=== PATIENT | male | born 1955 | race Caucasian/White ===

== ENCOUNTER 2021-04-21 19:20 | Emergency (ER) | payer OTHER ==
[~2021-04-21] VITALS: Ht 200.7 cm; Wt 81.7 kg
[~2021-04-21 19:20] MED LIST: ASPI81EC; FISH1000; GLIP5ER; HYDACE5 PO; HYDR1TAB94 PO; IBUP400 PO; INSR10I SC; INSULANI SC; LISI20; METF500; NAPR250; OXYACE5T PO; PERP2; Prinivil5 MG PO; RISP4; ROSI2; SERT100; SIMV20
[2021-04-21 21:01] LABS: BASOPHILS PERCENT AUTO 1 % (0-2); EOSINOPHILS ABSOLUTE AUTO 0.23 K/mm3 (0.00-0.68); EOSINOPHILS PERCENT AUTO 2 % (0-6); Hematocrit 36.9 % (37.0-53.0); Hemoglobin 12.5 g/dL (13.5-17.5); IMMATURE GRAN ABSOLUTE AUTO 0.05 K/mm3 (0.00-0.10); IMMATURE GRAN PERCENT AUTO 0 % (0-1); LYMPHOCYTES ABSOLUTE AUTO 3.29 K/mm3 (0.84-5.20); LYMPHOCYTES PERCENT AUTO 23 % (21-46); MONOCYTES ABSOLUTE AUTO 0.87 K/mm3 (0.16-1.47); MONOCYTES PERCENT AUTO 6 % (4-13); Mean Corpuscular HGB 30.9 pg (26.0-34.0); Mean Corpuscular HGB Conc 33.9 g/dL (31.5-36.5); Mean Corpuscular Volume 91 fL (80-100); Mean Platelet Volume 9.8 fL (9.1-12.4); NEUTROPHILS ABSOLUTE AUTO 9.69 K/mm3 (1.96-9.15); NEUTROPHILS PERCENT AUTO 68 % (41-73); Platelet Count 323 K/mm3 (150-400); RDW Coefficient Variation 12.9 % (11.7-14.2); RDW Standard Deviation 42.8 fL (35.1-46.3); Red Blood Cell Count 4.05 M/mm3 (4.30-5.90); White Blood Cell Count 14.23 K/mm3 (4.00-11.30)
[2021-04-21 21:28] LABS: Alanine Aminotransfer (ALT/SGP 25 U/L (12-78); Albumin, Blood 3.1 g/dL (3.4-5.0); Albumin/Globulin Ratio 0.7 (0.8-1.8); Alk Phos 85 U/L (50-136); Anion Gap 4 mmol/L (6-16); Aspartate Aminotrans (AST/SGOT 15 U/L (12-37); Bilirubin, Total 0.3 mg/dL (0.1-1.0); Blood Urea Nitrogen 17 mg/dL (8-24); Bun/Creatinine Ratio 12.2 (12.0-20.0); CO2, Blood 27 mmol/L (21-32); Calcium, Blood 8.6 mg/dL (8.5-10.1); Chloride, Blood 101 mmol/L (98-108); Creatinine, Blood 1.39 mg/dL (0.60-1.20); Globulin, Blood 4.2 g/dL (2.2-4.0); Glomerular Filtration Rate 51 (60-); Glucose, Blood 279 mg/dL (70-99); Magnesium, Blood 1.9 mg/dL (1.6-2.4); Potassium, Blood 4.6 mmol/L (3.5-5.5); Sodium, Blood 132 mmol/L (136-145); Thyroid Stimulating Hormone 0.945 uIU/mL (0.360-4.800); Total Protein, Blood 7.3 g/dL (6.4-8.2)
[2021-04-21 21:50] LABS: International Normalized Ratio 1.03; Prothrombin Time Results 11.1 Sec (9.7-11.5)
[2021-04-21 22:19] LABS: Troponin I < 0.030 ng/mL (0.000-0.040)
[2021-04-22] MEDS ORDERED: CEPH500 PO (00:50)
== END 2021-04-22 02:11 | disposition home or self-care (01) ==
LOC: ER 19:20
PROVIDERS: Student in an Organized Health Care Education/Training Program
DX: I48.91 Unspecified atrial fibrillation (principal); I10 Essential (primary) hypertension; I25.10 Atherosclerotic heart disease of native coronary artery without angina pectoris; F17.210 Nicotine dependence, cigarettes, uncomplicated; R94.31 Abnormal electrocardiogram [ECG] [EKG]; E11.65 Type 2 diabetes mellitus with hyperglycemia; N49.2 Inflammatory disorders of scrotum; I96 Gangrene, not elsewhere classified; L03.114 Cellulitis of left upper limb; L03.115 Cellulitis of right lower limb; E78.5 Hyperlipidemia, unspecified; Z79.899 Other long term (current) drug therapy; Z95.5 Presence of coronary angioplasty implant and graft; Z95.1 Presence of aortocoronary bypass graft
CPT/HCPCS: 71045; 72193; 80053; 83735; 83880; 84443; 84484; 85025; 85610; 85730; 93005; 93010; 96365; 96366; 96375; 99285-25; A9270; J3370; J7030; Q9967

== ENCOUNTER 2021-09-09 18:41 | Observation (INO) | payer OTHER ==
[~2021-09-09] VITALS: Ht 182.9 cm; Wt 84.0 kg
[~2021-09-09 18:41] MED LIST changes: +CEPH500 PO
[2021-09-09] MEDS ORDERED: LISI5 PO (18:51)
[2021-09-09] MEDS ORDERED: METF500 PO (18:51)
[2021-09-09 18:57] LABS: BASOPHILS ABSOLUTE AUTO 0.06 K/mm3 (0.00-0.23); BASOPHILS PERCENT AUTO 1 % (0-2); EOSINOPHILS ABSOLUTE AUTO 0.18 K/mm3 (0.00-0.68); EOSINOPHILS PERCENT AUTO 2 % (0-6); Hematocrit 43.4 % (37.0-53.0); Hemoglobin 14.7 g/dL (13.5-17.5); IMMATURE GRAN ABSOLUTE AUTO 0.05 K/mm3 (0.00-0.10); IMMATURE GRAN PERCENT AUTO 1 % (0-1); LYMPHOCYTES ABSOLUTE AUTO 2.53 K/mm3 (0.84-5.20); LYMPHOCYTES PERCENT AUTO 27 % (21-46); MONOCYTES ABSOLUTE AUTO 0.71 K/mm3 (0.16-1.47); MONOCYTES PERCENT AUTO 8 % (4-13); Mean Corpuscular HGB 30.3 pg (26.0-34.0); Mean Corpuscular HGB Conc 33.9 g/dL (31.5-36.5); Mean Corpuscular Volume 90 fL (80-100); Mean Platelet Volume 10.2 fL (9.1-12.4); NEUTROPHILS ABSOLUTE AUTO 5.82 K/mm3 (1.96-9.15); NEUTROPHILS PERCENT AUTO 62 % (41-73); Platelet Count 275 K/mm3 (150-400); RDW Coefficient Variation 13.5 % (11.7-14.2); RDW Standard Deviation 44.3 fL (35.1-46.3); Red Blood Cell Count 4.85 M/mm3 (4.30-5.90); White Blood Cell Count 9.35 K/mm3 (4.00-11.30)
[2021-09-09 19:22] LABS: Alanine Aminotransfer (ALT/SGP 22 U/L (12-78); Albumin, Blood 3.2 g/dL (3.4-5.0); Albumin/Globulin Ratio 0.8 (0.8-1.8); Alk Phos 87 U/L (50-136); Anion Gap 7 mmol/L (6-16); Aspartate Aminotrans (AST/SGOT 11 U/L (12-37); Bilirubin, Total 0.3 mg/dL (0.1-1.0); Blood Urea Nitrogen 15 mg/dL (8-24); Bun/Creatinine Ratio 17.5 (12.0-20.0); CO2, Blood 26 mmol/L (21-32); Calcium, Blood 8.5 mg/dL (8.5-10.1); Chloride, Blood 98 mmol/L (98-108); Creatinine, Blood 0.86 mg/dL (0.60-1.20); Globulin, Blood 4.1 g/dL (2.2-4.0); Glomerular Filtration Rate >60 (60-); Glucose, Blood 432 mg/dL (70-99); Sodium, Blood 131 mmol/L (136-145); Total Protein, Blood 7.3 g/dL (6.4-8.2)
[2021-09-09 19:39] LABS: Troponin I <0.015 ng/mL (0.000-0.040)
[2021-09-09] MEDS ORDERED: ASPI81CH PO (22:45)
[2021-09-09] MEDS ORDERED: ERGO400 PO (22:46)
[2021-09-09] MEDS ORDERED: METO25ER PO (22:46)
--- NOTE | 2021-09-09 23:40 | NUR ---
PT ADMITTED FROM ER AT APPROX 2330 FOR CHEST PAIN. TRANSPORTED VIA WHEELCHAIR WHICH IS PATIENS BASELINE R/T LEFT AKA. PT A&O X4. DENIES CP UPON ARRIVAL. DENIES SOB. CBG ELEATED; WILL GIVE INSULIN PER EMAR. ORDER FOR TELE; AWAITING TELE BOX.
--- NOTE | 2021-09-10 17:43 | NUR ---
SHIFT SUMMARY NO ACUTE CHANGES NOTED THROUGH THE DAY. PT CONTINUES TO DENY CP/PRESSURE. TROPONIN REMAINS NEG. PT IS SCHEDULED FOR A STRESS TEST, THEY WILL BE IN TOMORROW DUE TO THE ORDER BEING PLACED AFTER THE PT HAD EATEN BREAKFAST. PT TOLERATED PO INTAKE, VOIDING WNL. PT WILL BE NPO @0000. CALL LIGHT IN REACH, BED IN LOW POSITION.
--- NOTE | 2021-09-11 06:40 | NUR ---
PT DENIED CP T/O NIGHT, VSS. HR AFIB 80-90'S AT REST PER TELE MONITOR. HR DOES INCREASE UP TO 150'S W/ACTIVITY; PT REMIANED ASYMPTOMATIC. PT NPO POST MIDNIHGT FOR PLAN FOR STRESS TEST TODAY.
--- NOTE | 2021-09-11 16:37 | NUR ---
SHIFT SUMMARY PT HAD STRESS TEST TODAY. DISCHARGE PENDING RESULTS. PT TOLERATING PO WELL. IND IN ROOM WITH WHEELCHAIR. PT [id number]. PAIN LOCATED ONLY IN R THROAT IN LUMP THAT HE POINTED OUT THIS AM. OTHERWISE PT REPORTS FEELING AT BASELINE, AND IMPROVED TODAY.
--- NOTE | 2021-09-12 06:26 | NUR ---
PT VSS T/O NIGHT. HR AFIB TRENDING 80-90'S AT REST, INCREASES UP TO 150 W/ACTIVITY PER TELE MONITOR. PT DENIED CHEST PAIN/PRESSURE/SOB. PLAN FOR CARDIOLOGY CONSULT.
[2021-09-12] MEDS ORDERED: INSULANPEN SC (10:30)
[2021-09-12] MEDS ORDERED: ATOR40TA PO (10:30)
[2021-09-12] MEDS ORDERED: HUMULIN R100 UNIT/2 SC (10:32)
[2021-09-12] MEDS ORDERED: XARELTO20 MG PO (10:34)
[2021-09-12] MEDS ORDERED: OMEP20ER PO (10:34)
--- NOTE | 2021-09-12 11:33 | NUR ---
DISCHARGE PT LEFT VIA WHEELCHAIR AT 1130. PT IS TAKING TAXI TO HOME AT [facility]. MEDICATIONS FAXED TO PHARMACY, PT REPORTS HE HAS SISTER THAT PICKS UP MEDICATIONS FOR HIM. WENT OVER NEW MEDICATIONS AT LENGTH WITH PATIENT, HE PLANS TO FOLLOW UP WITH HIS PCP AND UPDATE ON NEW MEDICATIONS. PT HAS BEEN INDEPENDENT IN HIS ROOM WITH HIS WHEELCHAIR. DENIES CP TODAY. IV REMOVED PRIOR TO DISCHARGE.
[2021-10-31] MEDS ORDERED: Cleocin HCl150 MG PO (16:12)
== END 2021-09-12 11:29 | disposition home or self-care (01) ==
LOC: ER 18:41 → SURS 18:42 → MEDS 18:42 → SURS 22:25
PROVIDERS: Student in an Organized Health Care Education/Training Program; ADMIT Internal Medicine
DX: R07.9 Chest pain, unspecified (principal); I10 Essential (primary) hypertension; I25.10 Atherosclerotic heart disease of native coronary artery without angina pectoris; E11.9 Type 2 diabetes mellitus without complications; I25.2 Old myocardial infarction; F17.210 Nicotine dependence, cigarettes, uncomplicated; I44.7 Left bundle-branch block, unspecified; I49.3 Ventricular premature depolarization; I48.91 Unspecified atrial fibrillation; I16.0 Hypertensive urgency; E87.1 Hypo-osmolality and hyponatremia; Z79.84 Long term (current) use of oral hypoglycemic drugs; Z95.1 Presence of aortocoronary bypass graft; Z95.818 Presence of other cardiac implants and grafts; Z88.0 Allergy status to penicillin; Z89.612 Acquired absence of left leg above knee
CPT/HCPCS: 36415; 71046; 78452; 80053; 82947; 83036; 83880; 84484; 85025; 93005; 93010; 93017; 93306; 96365; 96375; 99285-25; A9270; A9500; G0378; J1815; J2785

== ENCOUNTER 2021-10-18 15:28 | Inpatient (IN) | payer OTHER ==
[~2021-10-18] VITALS: Ht 152.4 cm; Wt 86.5 kg
[~2021-10-18 15:28] MED LIST changes: +ASPI81CH PO; +ATOR40TA PO; +ERGO400 PO; +HUMULIN R100 UNIT/2 SC; +INSULANPEN SC; +LISI5 PO; +METF500 PO; +METO25ER PO; +OMEP20ER PO; +XARELTO20 MG PO
[2021-10-18] MEDS ORDERED: DULO60 PO (15:42)
[2021-10-18] MEDS ORDERED: MAGNESIUM OXID500 MG PO (15:42)
[2021-10-18 20:01] LABS: Performing Lab COTTAGE GROVE
--- NOTE | 2021-10-18 23:04 | NUR ---
AFIB PT ARRIVED TO ROOM IN AFIB 110'S TO 140'S. PT STATED HE HAD NOT TAKEN ANY OF HIS HOME MEDS TODAY INCLUDING HIS METOPROLOL. SPOKE WITH DR NEWBERRY WHO GAVE ORDER TO GIVE A DOSE HOME HOME METOPROLOL 25 MG AT THIS TIME.
[2021-10-19 04:10] LABS: BASOPHILS ABSOLUTE AUTO 0.03 K/mm3 (0.00-0.23); BASOPHILS PERCENT AUTO 0 % (0-2); EOSINOPHILS ABSOLUTE AUTO 0.17 K/mm3 (0.00-0.68); EOSINOPHILS PERCENT AUTO 2 % (0-6); Hematocrit 36.4 % (37.0-53.0); Hemoglobin 11.9 g/dL (13.5-17.5); IMMATURE GRAN ABSOLUTE AUTO 0.03 K/mm3 (0.00-0.10); IMMATURE GRAN PERCENT AUTO 0 % (0-1); LYMPHOCYTES ABSOLUTE AUTO 1.94 K/mm3 (0.84-5.20); LYMPHOCYTES PERCENT AUTO 24 % (21-46); MONOCYTES ABSOLUTE AUTO 0.73 K/mm3 (0.16-1.47); MONOCYTES PERCENT AUTO 9 % (4-13); Mean Corpuscular HGB Conc 32.7 g/dL (31.5-36.5); Mean Corpuscular Volume 92 fL (80-100); Mean Platelet Volume 10.5 fL (9.1-12.4); NEUTROPHILS ABSOLUTE AUTO 5.28 K/mm3 (1.96-9.15); NEUTROPHILS PERCENT AUTO 65 % (41-73); Platelet Count 272 K/mm3 (150-400); RDW Coefficient Variation 12.8 % (11.7-14.2); RDW Standard Deviation 43.4 fL (35.1-46.3); Red Blood Cell Count 3.97 M/mm3 (4.30-5.90); White Blood Cell Count 8.18 K/mm3 (4.00-11.30)
[2021-10-19 04:33] LABS: Anion Gap 6 mmol/L (6-16); Blood Urea Nitrogen 13 mg/dL (8-24); Bun/Creatinine Ratio 13.9 (12.0-20.0); CO2, Blood 26 mmol/L (21-32); Calcium, Blood 8.5 mg/dL (8.5-10.1); Chloride, Blood 101 mmol/L (98-108); Creatinine, Blood 0.94 mg/dL (0.60-1.20); Glomerular Filtration Rate >60 (60-); Glucose, Blood 169 mg/dL (70-99); Potassium, Blood 3.8 mmol/L (3.5-5.5); Sodium, Blood 133 mmol/L (136-145)
--- NOTE | 2021-10-19 05:24 | NUR ---
YARDMASTER SUMMARY NEW ADMIT FROM THE ED TONIGHT. [facility] G[facility]GREN[facility] R BIG TOE. TOE IS COMPLETELY BLACK WITH SOME REDNESS/SWELLING TO REST OF FOOT. PHOTO IN CHART. PODIATRY CONSULT IN PLACE, NOTIFIED BY ED PHYSICIAN PER ORDER. PT AAOX4 AND PLEASANT. ABLE TO GET INTO THE BATHROOM WITH HELP OF A WHEELCHAIR AND A 1 ASSIST. HAS BEEN NPO SINCE MIDNIGHT IN PREP FOR PROCEDURE LATER TODAY. TACHY WITH AFIB AT TIMES, SEE PREVIOUS NOTE. OTHER VSS, WILL CONTINUE TO MONITOR.
[2021-10-19 10:08] LABS: Influenza A, PCR NEGATIVE (NEGATIVE); Influenza B, PCR NEGATIVE (NEGATIVE); Resp Syncytial Virus, PCR NEGATIVE (NEGATIVE)
[2021-10-19 10:09] LABS: SARS-Cov-2 (COVID-19) PCR, MMC POSITIVE (NEGATIVE)
[2021-10-19 11:11] LABS: Result SEE SEPERATE REPORT
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
--- NOTE | 2021-10-19 15:53 | NUR ---
PT A/O. PT COVID POSITIVE, GETTING PT READY IN ROOM AND PT TO GO FROM ROOM TO OR. History, Chart, Medications and Allergies reviewed before start of procedure. Patient confirms NPO status and agrees with scheduled surgery. Pre-Op teaching done. Pt verbalizes understanding. Lungs clear T/O to Auscultation.
--- NOTE | 2021-10-19 16:48 | NUR ---
10/19/21 1648 Naye Castaneda PATIENT IS ON SCHEDULED ANTIBIOTICS NO PREOP ANTIBIOTICS ORDERED PER .
--- NOTE | 2021-10-19 18:38 | NUR ---
VSS. AFEBRILE. NO C/O PAIN. AUO. TOLERATING CURRENT DIET. S/P R RIGHT FOOT SURGERY- NO S/S OF BLEEDING NOTED, DRESSING REMAINS C/D/I. FREQUENT ROUNDS TO ENSURE PT SAFETY. PT ENCOURAGED TO CHANGE POSITIONS Q 2HRS, PT VERBALIZED UNDERSTANDING. PT IN NO APPARENT DISTRESS AT THIS TIME. WILL CONTINUE TO MONITOR UNTIL TRANSFER OF CARE TO ONCOMING RN.
--- NOTE | 2021-10-20 05:34 | NUR ---
SHIFT SUMMARY NO ACUTE CHANGES THIS SHIFT. VSS. PT AXO. NO TELEMETRY. PT ON RA. CONTINENT. USING URINAL. PT HAS SLEPT FOR MAJORITY OF SHIFT. DRESSING INTACT AND CLEAN TO R GREAT TOE. CAP REFILL <3 SEC TO UNCOVERED TOES. PT STATES NEUROPATHY HAS PREVENTED HIM FROM FEELING MOST OF THE PAIN POST AMPUTATION. DID REQUIRE ONE TIME DOSE OF FENTANYL THIS SHIFT. OTHERWISE, PT COMFORTABLE IN ROOM. BED IN LOW POSITION.
--- NOTE | 2021-10-20 14:19 | NUR ---
Pt. was alert and awake in bed. Pt. welcomed my visit. Pt. was healing from amputation. Pt. is a , and is distressed because of lack of housing after discharge. Provide a calming presence and listen empathetically. Pt. requested assistance in finding housing after recovery. Prayed with Pt. Pt. displayed evidence of encouragement, and verbalized gratitude for the spiritual care visit. After leaving pt. talked with PCU desk about pts. housing concern. Nurse confirmed that a social need request had been made for pt.
--- NOTE | 2021-10-20 17:08 | NUR ---
A&Ox4. VSS- DBP inc, scheduled BP meds administered. Afebrile. No c/o pain. AUO. No BM. Tolerating current diet. BG >300 at noon-covered per sliding scale, rechecked in 2 hrs with BG trending down. Lantus to be started tonight. Surgery rounded - R foot dressing changed, dressing remains C/D/I. Dr. Price consulted for RLE PVD. Frequent rounds to ensure pt safety. Pt encouraged to reposition q 2hrs to prevent pressure ulcers, pt verbal understanding. Pt in no apparent distress at this time. Will continue to monitor until transfer of care to oncoming RN.
--- NOTE | 2021-10-20 22:59 | NUR ---
Assumed care of pt at 1900. A/Ox4. VSS. Reports no CP/Pressure. Has moderate amount of pain in L AC with old IV site, ice applied. Redness noted with tenderness. Maintains over 92% on RA, Expiratory wheezes t/o R side, Dim on left. Faint pulses t/o. R toe covered, no drainage noted. Urinating in urinal ernuka urine. Will update as changes occur.
--- NOTE | 2021-10-21 18:41 | NUR ---
VSS. Afebrile. No c/o pain. AUO. No BM. Tolerating current diet. Occassionally has nausea- Zofran x1. Podiatry rounded- R foot dressing remains C/D/I. Pending IR intervention per Dr. Price. CTA Abd completed- see results. Frequent rounds to ensure pt safety. Pt encouraged to reposition q2hrs to prevent pressure ulcers, pt verbalized understanding. Pt in no apparent distress at this time. Will continue to monitor until transfer of care to oncoming RN.
--- NOTE | 2021-10-21 21:06 | NUR ---
Assumed care of pt at 1900. A/Ox4. Reports L arm pain where IV infiltrated. Redness has extended about 1inch past marked outline from last nights shift. Ice has been applied multiple times. L BKA, and recent R great toe amputation. R toe amputation covered and dressing was changed today. Other toes are warm to touch, but cap refill cannot be assessed. Patient states he is feeling sick today and believes it to be related to the Covid diagnosis. LS clear t/o and maintains above 95% on RA. DBP still elevated into 100's, rest of VS stable. No temperature. Will update as changes occur.
[2021-10-22 03:48] LABS: Hematocrit 34.9 % (37.0-53.0); Hemoglobin 11.8 g/dL (13.5-17.5); Mean Corpuscular HGB 30.1 pg (26.0-34.0); Mean Corpuscular HGB Conc 33.8 g/dL (31.5-36.5); Mean Corpuscular Volume 89 fL (80-100); Platelet Count 236 K/mm3 (150-400); RDW Coefficient Variation 12.7 % (11.7-14.2); RDW Standard Deviation 41.2 fL (35.1-46.3); Red Blood Cell Count 3.92 M/mm3 (4.30-5.90); White Blood Cell Count 9.63 K/mm3 (4.00-11.30)
[2021-10-22 04:09] LABS: Albumin, Blood 2.5 g/dL (3.4-5.0); Anion Gap 8 mmol/L (6-16); Blood Urea Nitrogen 12 mg/dL (8-24); Bun/Creatinine Ratio 15.3 (12.0-20.0); CO2, Blood 25 mmol/L (21-32); Calcium, Blood 8.2 mg/dL (8.5-10.1); Chloride, Blood 95 mmol/L (98-108); Creatinine, Blood 0.78 mg/dL (0.60-1.20); Glomerular Filtration Rate >60 (60-); Glucose, Blood 142 mg/dL (70-99); Phosphorus, Blood 2.5 mg/dL (2.5-4.9); Potassium, Blood 3.6 mmol/L (3.5-5.5); Sodium, Blood 128 mmol/L (136-145)
--- NOTE | 2021-10-22 16:57 | NUR ---
SHIFT SUMMARY PT A&Ox4; CALM AND COOPERATIVE WITH CARE. PT RESTING IN BED DURING SHIFT. PT REPORTS PAIN TO RIGHT FOOT, MEDICATED x1 WITH PERCOCET. PT REPORT OCCASIONAL, MILD SOB, WHICH HE STAES IS HIS BASELINE, SPO2 >90% ON RA. PT RECEIVING IV ANTIBIOTICS. OTHER VSS. NO OTHER ACUTE CHANGES NOTED DURING SHIFT. WILL CONTINUE TO MONITOR UNITL REPORT GIVEN TO ONLEOBARDO RN.
--- NOTE | 2021-10-22 20:39 | NUR ---
CARE ASSUMPTION PT LYING IN BED W 02 SATS >92% ON RM AIR. PT DENYING ANY PAIN OR NAUSEA AT THIS TIME. VSS AND PT NOT ON TELE. PT DENYING ANY FURTHER NEEDS AT THIS TIME.
[2021-10-23 04:12] LABS: Hematocrit 33.4 % (37.0-53.0); Hemoglobin 11.1 g/dL (13.5-17.5); Mean Corpuscular HGB 29.9 pg (26.0-34.0); Mean Corpuscular HGB Conc 33.2 g/dL (31.5-36.5); Mean Corpuscular Volume 90 fL (80-100); Mean Platelet Volume 10.5 fL (9.1-12.4); Platelet Count 266 K/mm3 (150-400); RDW Coefficient Variation 12.8 % (11.7-14.2); RDW Standard Deviation 42.4 fL (35.1-46.3); Red Blood Cell Count 3.71 M/mm3 (4.30-5.90); White Blood Cell Count 9.57 K/mm3 (4.00-11.30)
[2021-10-23 04:34] LABS: Albumin, Blood 2.3 g/dL (3.4-5.0); Anion Gap 8 mmol/L (6-16); Blood Urea Nitrogen 17 mg/dL (8-24); Bun/Creatinine Ratio 19.5 (12.0-20.0); CO2, Blood 25 mmol/L (21-32); Calcium, Blood 8.1 mg/dL (8.5-10.1); Chloride, Blood 95 mmol/L (98-108); Creatinine, Blood 0.87 mg/dL (0.60-1.20); Glomerular Filtration Rate >60 (60-); Glucose, Blood 171 mg/dL (70-99); Phosphorus, Blood 3.1 mg/dL (2.5-4.9); Potassium, Blood 3.8 mmol/L (3.5-5.5); Sodium, Blood 128 mmol/L (136-145)
--- NOTE | 2021-10-23 05:22 | NUR ---
CLINICAL PROJECT LEADER SUMMARY PT IS AXO X4 AND USES HIS CALL LIGHT TO MAKE HIS NEEDS KNOWN. NO MAJOR CHANGES THIS SHIFT THE PT SLEPT COMFORTABLY FOR MOST OF THE SHIFT. O2 SATS > 92% ON RM AIR. PT DENYING ANY PAIN OR NAUSEA THIS SHIFT. VSS, WILL REPORT TO ONCOMING RN.
--- NOTE | 2021-10-23 16:49 | NUR ---
SHIFT SUMMARY PT A&Ox4; CALM AND COOPERATIVE WITH CARE. PT MOVES IND IN BED, REPOSITIONING SELF. PT DENIES PAIN, CHEST PAIN/PRESSURE, SOB, NASUEA AND DIZZINESS. PT RIGHT GREAT TOE AMPUATION, DR HERRERA AT BEDSIDE THIS AFTERNOON FOR DRESSING CHANGE. SPOKE WITH DR DURAN AND [employer] SUPERINTENDENT, PLANS FOR REVASC TOMROROW 10/24; NEW ORDERS FOR NPO AT MIDNIGHT. PT RECEIVING IV ANTIBIOTICS. VSS. NO OTHER ACUTE CHANGES NOTED. WILL CONTINUE TO MONITOR UNITL REPORT GIVEN TO ONCOMING RN.
--- NOTE | 2021-10-23 20:18 | NUR ---
CARE ASSUMPTION PT IS AXO X4 AND ANSWERING QUESTIONS APPROPRIATELY. PT LYING IN BED DENYING AN PAIN OR NAUSEA AT THIS TIME. O2 SATS >92% ON RM AIR. VSS AND AFEBRILE. PT DENYING ANY FURTHER NEEDS AT THIS TIME.
[2021-10-24 04:56] LABS: Anion Gap 7 mmol/L (6-16); Blood Urea Nitrogen 17 mg/dL (8-24); Bun/Creatinine Ratio 20.5 (12.0-20.0); CO2, Blood 25 mmol/L (21-32); Calcium, Blood 8.2 mg/dL (8.5-10.1); Chloride, Blood 96 mmol/L (98-108); Creatinine, Blood 0.83 mg/dL (0.60-1.20); Glomerular Filtration Rate >60 (60-); Glucose, Blood 115 mg/dL (70-99); Potassium, Blood 3.7 mmol/L (3.5-5.5); Sodium, Blood 128 mmol/L (136-145); Thyroxine (T4) 6.8 ug/dL (4.5-12.1)
--- NOTE | 2021-10-24 05:54 | NUR ---
EXTENSION WORK INSTRUCTOR SUMMARY NO MAJOR CHANGES THIS SHIFT THE PT SLEPT COMFORTABLY FOR MOST OF THE SHIFT. PT HAD C/O PAIN IN RLE SO MEDICATED PER EMAR W RELEIF. LS CLEAR AND O2 SATS >92% ON RM AIR. VSS AND AFEBRILE. PT NPO SINCE MIDNIGHT FOR PROCEDURE. WILL REPORT TO ONCOMING RN.
--- NOTE | 2021-10-24 08:37 | NUR ---
ASSUMED CARE OF PATIENT AT APPROX 0700. PT NPO SINCE MIDNIGHT FOR REVASC TODAY. PT RESTING IN BED APPEARS TO BE SLEEPING. PT WAKES EASILY. PT ALERT, ORIENTEDx4; CALM AND COOPERATIVE WITH CARE. PT REPOSITIONING SELF IN BED. LS DIM T/O WITH EXP WHEEZES IN UPPER LOBES, SPO2 >90% ON RA; PT DENIES COUGH AND SOB. HEART SOUND IRRREGULAR; HR 90-110'S ON SPO2; BP STABLE. BT HYPOACTIVE x4 QUAD, PT REPORTS PASSING GAS; SOFT, NONTENDER. PT DENIES PAIN, CHEST PAIN, NAUSEA AND DIZZINESS. PT RECEIVING IV ANTIBIOTICS. RIGHT GREAT TOE AMPUTATED THIS HOSPITAL STAY; DRESSING CHANGES YESTERDAY BY DR HERRERA. NO S/SX OF ACUTE DISTRESS NOTED. VSS. N OTHER ACUTE CHANGES. WILL CONTINUE TO MONITOR.
--- NOTE | 2021-10-24 17:11 | NUR ---
PT TO SIGN HANGER
--- NOTE | 2021-10-24 17:12 | NUR ---
SHIFT SUMMARY PT REMAINS NPO FOR PROCEDURE T/O SHIFT. PT TRANSFERED TO REAL ESTATE REP. NO S/Sx OF DISTRESS NOTED T/O SHIFT. VSS. NO OTHER ACUTE CHANGES NOTED. WILL CONTINUE TO MONITOR UNTIL REPORT GIVEN TO ONCOMING RN.
--- NOTE | 2021-10-24 21:46 | NUR ---
CARE ASSUMPTION PT ARRIVED BACK FROM SX AT START OF THE SHIFT. PT IS AWAKE AND AXO X4. PT DENYING ANY SIGNIFICANT PAIN AT THIS TIME. O2 SATS >92% ON RM AIR. VSS. R GROIN SITE IS SOFT NON-TENDER W NO S/S OF BLEEDING OR HEMATOMA. R PEDAL PULSES ARE PRESENT AND STRONG W THE DOPPLER. WCTM.
--- NOTE | 2021-10-25 05:33 | NUR ---
SCRAP HOOKER SUMMARY PT IS AXO X4 AND USES HIS CALL LIGHT TO MAKE HIS NEEDS KNOWN. PT'S LEFT GROIN SITE IS SOFT NON-TENDER W NO SIGNS OF BLEEDING OR HEMATOMA THIS SHIFT. PULSES IN R FOOT CANNOT BE FELT BUT ARE VERY PROMINENT W THE DOPPLER. VSS AND TELE SHOWING AFIB 80-130 THIS SHIFT. O2 SATS >92% ON RM AIR THIS SHIFT. WILL REPORT TO ONCOMING RN.
--- NOTE | 2021-10-25 12:17 | NUR ---
Pt. was in bed and alert. Pt. welcomed my visit. Pt. displayed moderate anxiety over the uncertainty of his housing upon discharge. Pt. self described himself as depressed. Listened empathetically. Pt. is a . Facilitated a life review about his service. Pt. 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 When anxiety of his housing resurfaced, I provided a calming pastoral presence. Prayed with pt. Pt. verbalized gratitude. Afterward confirmed with chart notes which indicate a social need request has been submitted on behalf of the pt.
--- NOTE | 2021-10-25 18:33 | NUR ---
SHIFT NOTE PT A/O X4, ANSWERS QUESTIONS APPOPRIATELY IN FULL SENTENCES. VSS. PT INDEPENDANT IN ROOM WITH HIS HOME WHEELCHIAR. PT DID HAVE A LOOSE BM THIS EVENING THAT HE REQUIRED ASSISTANCE WITH TO CLEAN UP. DENIES SOB AND CP. PT ON RA WITH SPO2 >93%. PT DENIES NEEDS T/O THE DAY. PT DOES EXPRESS CONCERN ABOUT PLACEMENT UPON D/C AND EXPRESSED THAT HE WILL NOT LIKELY BE COMPLIANT WITH MEDCIATIONS UPON D/C.
--- NOTE | 2021-10-25 20:07 | NUR ---
CARE ASSUMPTION PT IS AXO X4 AND ANSWERING QUESTIONS APPROPRIATLEY. O2 SATS >94% ON RM AIR. BP WNL. PT REPORTING PAIN IN R FOOT, MEDICATED PER EMAR. PT SITTING IN BED DENYING ANY FURTHER NEEDS AT THIS TIME.
--- NOTE | 2021-10-26 05:59 | NUR ---
APPLICATION CHEMIST SUMMARY PT IS AXO X4 AND USES HIS CALL LIGHT TO MAKE HIS NEEDS KNOWN. PT REPORTING MODERATE PAIN IN HIS R FOOT AND MEDICATED PER EMAR W RELIEF. NO MAJOR CHANGES THE PT SLEPT COMFORTABLY FOR MOST OF THE SHIFT. VSS AND AFEBRILE. WILL REPORT TO ONCOMING RN.
--- NOTE | 2021-10-27 05:56 | NUR ---
STRONG NITRIC OPERATOR SUMMARY PATIENT IS ALEERT AND ORIENTED. VERY COOPERATIVE WITH CARE, STATED HE DOES NOT WANT STOOL SOFTENER. HE HIS V/S WERE MOSTLY STABLE. HE GOT HIS PAIN MED NEEDED. OTHERWISE HE DID NOT LODGE ANY COMPLAINTS OVERNIGHT. WILL CONTINUE TO MONITOR HIM.
--- NOTE | 2021-10-27 16:02 | NUR ---
SHIFT SUMMARY PATIENT IS ALERT AND ORIENTED X3-4. PATIENT IS PLEASENT AND COOPERATIVE WITH CARE. PATIENT HAS DECLINED STOOL SOFTNER. PATIENT HAS HAD NO COMPLAINTS OF PAIN, NAUSEA, SOB OR VOMITTING THIS SHIFT. PATIENT HAS HAD NO ACUTE EVENTS THIS SHIFT. VITAL SIGNS REVIEWED. BED IN LOCKED AND LOWEST POSITION. CALL LIGHT IN REACH. WILL MONITOR UNTIL SHIFT CHANGE.
--- NOTE | 2021-10-28 04:10 | NUR ---
TEST CONSULTANT SUMMARY PATIENT HAD A FAIR SHIFT. ASSESSMENT DONE AND DOCUMENTED. V/S STABLE. NO COMPLAINTS OVERNIGHT. WILL CONTINUE TO MONITOR HIM.
--- NOTE | 2021-10-28 08:19 | NUR ---
CARE ASSUMPTION PATIENT IS ALERT AND ORIENTATED X4. PERRLA. NEURO IS INTACT. VSS. PATIENT REPORTS NO CHEST PAIN/PRESSURE, SHORTNESS OF BREATH, OR PAIN THIS MORNING. HEART SOUNDS REGULAR AND DISTANT, RADIAL PULSES STRONG BILATERALLY. LUNG SOUNDS CLEAR, LEFT LOWER LOBE COARSE. SEE SHIFT ASSESSMENT FOR FULL DETAILS. CALL LIGHT IS WITHIN REACH AND BED IN LOWEST POSITION. WILL CONTINUE TO MONITOR AND PROVIDE CARE.
--- NOTE | 2021-10-28 17:59 | NUR ---
SHIFT SUMMARY PATIENT NEURO REMAINS UNCHAGED THIS SHIFT OR FRO PREVIOUS NOTE. VSS. PATIENT REPORTED PAIN IN HIS LEFT STUMP AND RECEIVED PAIN MEDICATION PER EMAR. PATEINT CALLS APPROPRIATELY. PATIENT HAS URINAL AT BEDSIDE THAT HE USES. NO ACUTE CHANGES THIS SHIFT. CALL LIGHT WITHIN REACH AND BED IN LOWEST POSITION. WILL CONTINUE TO MNITOR AND PROVIDE CARE UNTIL HAND OFF WITH NEXT SHIFT.
--- NOTE | 2021-10-29 04:33 | NUR ---
SHIFT SUMMARY NO ACUTE CHANGES TO REPORT THIS SHIFT, PT HAS SLEPT T/O THE SHIFT. NO COMPLAINTS OF PAIN THIS SHIFT. PT RESP E/U ON RA, SATS WNL. VITALS STABLE. PT INDEPENDENT IN THE ROOM, MAKES NEEDS KNOWN. BED IN LOWEST POSITION, CALL LIGHT WITHIN REACH.
--- NOTE | 2021-10-29 18:11 | NUR ---
PATIENT IS AWAKE,ALERT AND ORIENTED TIME THREE.DENIES PAIN. PATIENT DENIES COMPLAINT AND ISSUE. PATIENT PENDING PLACEMENT PER MD ORDER.
--- NOTE | 2021-10-30 03:53 | NUR ---
SHIFT SUMMARY PATIENT ALERT AND ORIENTED ABLE TO VOICE NEEDS C/O PAIN TO HIS RIGHT SURGICAL GREAT TOE DRESSING INTACT AND DRY NON SWOLLEN PAIN MED ADM PER EMAR WITH RELIEF.CONT BLOOD SUGAR CHECKS NO HYPER/HYPOGLYEMIC NOTED. CONT XERELTO THERAPY NO ACTIVE BLEEDING NOTED.
--- NOTE | 2021-10-30 17:16 | NUR ---
PATIENT IS AWAKE,ALERT AND ORIENTED TIMES THREE. DENIES PAIN. PATIENT ATE 100% OF MEAL. DRESSING INTACT TO LOWER EXTREMITIES NO DRAINAGE NOTED.
--- NOTE | 2021-10-31 04:53 | NUR ---
INVOICING SPECIALIST SUMMARY ADMITTED FOR GANGRENE OF RIGHT GREAT TOE. PT IS S/P AMPUTATION. FULL CODE. PT WAITING ON PLACEMENT HE IS HOMELESS. MEDICATED X1 WITH PERCOCET FOR 10/10 PAIN TO THE RIGHT FOOT. PT INDEPENDENT WITH HOME WC IN ROOM. COVID POSITIVE - ON RA WITH NO COMPLAINTS OF SOB. NO OTHER CONCERNS THIS SHIFT.
--- NOTE | 2021-10-31 07:45 | NUR ---
JHONY loya handoff of patient care from JHONY Ferraro Patient was in bed asleep and did not appear to be in any distress
[2021-10-31] MEDS ORDERED: CLOP75 PO (16:12)
[2021-10-31] MEDS ORDERED: CLIN300 PO (16:12)
[2021-10-31] MEDS ORDERED: INSULIN LI100 UNIT/6 SC (16:14)
[2021-10-31] MEDS ORDERED: MIRALAX17 GM PO (16:15)
[2021-10-31] MEDS ORDERED: VISBIOME 112.51 EACH PO (16:16)
--- NOTE | 2021-10-31 17:05 | NUR ---
Patient was alert and orient, his affect was restricted and mood was congruent. Patient was continent of bowel and bladder. He used w/c for mobility. He was compliant with taking medications and requested no prn. He had no complaints of pain, he had no requests at this time. Patient will not discharge today as the pharmacy is closed. He will discharge tomorrow
--- NOTE | 2021-11-01 06:05 | NUR ---
SUPERINTENDENT DRILLING SUMMARY ADMITTED FOR GANGRENE OF THE RIGHT GREAT TOE. PT IS S/P AMPUTATION. HE IS FULL CODE. PT WILL BE DISCHARGED THIS MORNING. HE REPORTS 6/10 PAIN TO THE RIGHT GREAT TOE BUT REFUSES THE OFFERED PAIN MEDICATION. PT HAS BEEN USING THE URINAL INDEPENDENTLY AND HAS BEEN RESTING THROUGHOUT THE SHIFT.
--- NOTE | 2021-11-01 09:20 | NUR ---
Patient was alert and orient and appropriate for discharge. RN reviewed discharge instructions and medication list with patient. RN removed IV and gathered his belongings and escorted him downstairs. His sister picked him up and will drop him at his daughter's home.
== END 2021-11-01 09:22 | disposition home or self-care (01) | DRG 853 ==
LOC: ER 15:28 → PCU 20:54 → MEDS 10-26 17:13
PROVIDERS: Internal Medicine; Podiatrist Foot & Ankle Surgery; ADMIT Family Medicine
PROC: 8E0ZXY6 Isolation (ICD-10-PCS; 2021-10-18)
PROC: 0Y6M0Z9 Detachment at Right Foot, Partial 1st Ray, Open Approach (ICD-10-PCS; principal; 2021-10-19 13:00)
PROC: 04LK3DZ Occlusion of Right Femoral Artery with Intraluminal Device, Percutaneous Approach (ICD-10-PCS; 2021-10-24)
PROC: 047M3DZ Dilation of Right Popliteal Artery with Intraluminal Device, Percutaneous Approach (ICD-10-PCS; 2021-10-24)
PROC: 047K3Z1 Dilation of Right Femoral Artery using Drug-Coated Balloon, Percutaneous Approach (ICD-10-PCS; 2021-10-24)
PROC: 047T3ZZ Dilation of Right Peroneal Artery, Percutaneous Approach (ICD-10-PCS; 2021-10-24)
PROC: B41D1ZZ Fluoroscopy of Aorta and Bilateral Lower Extremity Arteries using Low Osmolar Contrast (ICD-10-PCS; 2021-10-24)
DX: A41.9 Sepsis, unspecified organism (principal); U07.1 COVID-19; I77.77 Dissection of artery of lower extremity; E87.1 Hypo-osmolality and hyponatremia; E11.52 Type 2 diabetes mellitus with diabetic peripheral angiopathy with gangrene; I70.261 Atherosclerosis of native arteries of extremities with gangrene, right leg; L03.031 Cellulitis of right toe; I48.91 Unspecified atrial fibrillation; I10 Essential (primary) hypertension; F32.A Depression, unspecified; Z28.21 Immunization not carried out because of patient refusal; I25.10 Atherosclerotic heart disease of native coronary artery without angina pectoris; E66.9 Obesity, unspecified; Z68.34 Body mass index [BMI] 34.0-34.9, adult; F17.210 Nicotine dependence, cigarettes, uncomplicated; Z95.1 Presence of aortocoronary bypass graft; Z89.612 Acquired absence of left leg above knee; Z59.00 Homelessness unspecified; Z91.14 Patient's other noncompliance with medication regimen; I25.2 Old myocardial infarction; Z88.0 Allergy status to penicillin; Z79.82 Long term (current) use of aspirin; Z71.6 Tobacco abuse counseling; Z79.01 Long term (current) use of anticoagulants; Z79.899 Other long term (current) drug therapy; Z79.4 Long term (current) use of insulin; Z95.5 Presence of coronary angioplasty implant and graft
CPT/HCPCS: 0241U; 36140; 36415; 37226; 37228; 37232; 73660; 75625; 75635; 75716; 75774; 76937; 80048; 80069; 82947; 83605; 83735; 84300; 84436; 84443; 85025; 85027; 85347; 87040; 88305; 88311; 93005; 93010; 93926; 96365; 96366; 96367; 96375; 99152; 99153; 99285-25; A9270; C1725; C1760; C1769; C1887; C1894; C2623; J0171; J0690; J0692; J1644; J1815; J2250; J2405; J2704; J3010; J3370; J7030; J7050; Q9967

== ENCOUNTER 2021-11-15 09:29 | Inpatient (IN) | payer OTHER ==
[~2021-11-15] VITALS: Ht 177.8 cm; Wt 81.7 kg
[~2021-11-15 09:29] MED LIST changes: +CLOP75 PO; +Cleocin HCl150 MG PO; +DULO60 PO; +INSULIN LI100 UNIT/6 SC; +MAGNESIUM OXID500 MG PO; +MIRALAX17 GM PO; +VISBIOME 112.51 EACH PO
[2021-11-15 09:48] LABS: BASOPHILS ABSOLUTE AUTO 0.05 K/mm3 (0.00-0.23); BASOPHILS PERCENT AUTO 0 % (0-2); EOSINOPHILS PERCENT AUTO 0 % (0-6); Hematocrit 32.6 % (37.0-53.0); Hemoglobin 11.2 g/dL (13.5-17.5); IMMATURE GRAN ABSOLUTE AUTO 0.23 K/mm3 (0.00-0.10); IMMATURE GRAN PERCENT AUTO 1 % (0-1); LYMPHOCYTES ABSOLUTE AUTO 0.98 K/mm3 (0.84-5.20); LYMPHOCYTES PERCENT AUTO 4 % (21-46); MONOCYTES ABSOLUTE AUTO 1.39 K/mm3 (0.16-1.47); MONOCYTES PERCENT AUTO 6 % (4-13); Mean Corpuscular HGB 29.4 pg (26.0-34.0); Mean Corpuscular HGB Conc 34.4 g/dL (31.5-36.5); Mean Corpuscular Volume 86 fL (80-100); Mean Platelet Volume 10.4 fL (9.1-12.4); NEUTROPHILS ABSOLUTE AUTO 22.74 K/mm3 (1.96-9.15); NEUTROPHILS PERCENT AUTO 90 % (41-73); Platelet Count 454 K/mm3 (150-400); RDW Coefficient Variation 13.9 % (11.7-14.2); RDW Standard Deviation 43.5 fL (35.1-46.3); Red Blood Cell Count 3.81 M/mm3 (4.30-5.90); White Blood Cell Count 25.39 K/mm3 (4.00-11.30)
[2021-11-15 10:14] LABS: Alanine Aminotransfer (ALT/SGP 100 U/L (12-78); Albumin, Blood 2.5 g/dL (3.4-5.0); Albumin/Globulin Ratio 0.5 (0.8-1.8); Alk Phos 183 U/L (50-136); Anion Gap 10 mmol/L (6-16); Aspartate Aminotrans (AST/SGOT 127 U/L (12-37); Bilirubin, Total 1.4 mg/dL (0.1-1.0); Blood Urea Nitrogen 40 mg/dL (8-24); Bun/Creatinine Ratio 49.9 (12.0-20.0); CO2, Blood 22 mmol/L (21-32); Calcium, Blood 9.3 mg/dL (8.5-10.1); Chloride, Blood 86 mmol/L (98-108); Globulin, Blood 5.4 g/dL (2.2-4.0); Glomerular Filtration Rate >60 (60-); Glucose, Blood 472 mg/dL (70-99); Potassium, Blood 5.7 mmol/L (3.5-5.5); Sodium, Blood 118 mmol/L (136-145); Total Protein, Blood 7.9 g/dL (6.4-8.2)
[2021-11-15 10:26] LABS: Base Excess Venous -2.3 mmol/L; Bicarbonate Venous 22.9 mmol/L (24.0-30.0); PCO2 Venous 34.4 mmHg (38-42); PO2 Venous 75.9 mmHg (38-42); pH Blood Venous 7.42 (7.34-7.37)
[2021-11-15 13:00] LABS: Influenza A, PCR NEGATIVE (NEGATIVE); Influenza B, PCR NEGATIVE (NEGATIVE); Resp Syncytial Virus, PCR NEGATIVE (NEGATIVE)
[2021-11-15 13:03] LABS: SARS-Cov-2 (COVID-19) PCR, MMC POSITIVE (NEGATIVE)
[2021-11-15 15:15] LABS: Anion Gap 9 mmol/L (6-16); Blood Urea Nitrogen 39 mg/dL (8-24); Bun/Creatinine Ratio 41.8 (12.0-20.0); CO2, Blood 21 mmol/L (21-32); Calcium, Blood 8.2 mg/dL (8.5-10.1); Chloride, Blood 95 mmol/L (98-108); Creatinine, Blood 0.93 mg/dL (0.60-1.20); Glomerular Filtration Rate >60 (60-); Glucose, Blood 381 mg/dL (70-99); Potassium, Blood 4.9 mmol/L (3.5-5.5); Sodium, Blood 125 mmol/L (136-145)
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
--- NOTE | 2021-11-15 17:13 | NUR ---
ASSUMED CARE FROM ER. A/A/OX3 WITH INTERMITANT FORGETFULNESS. POOR HISTORIAN, UNABLE TO GIVEN CLEAR HX OR PHONE NUMBERS FOR FAMILY MEMBERS. RIGHT GREAT TOE AMPUTATION 1 MONTH AGO. STATES WAS LIVING WITH DAUGHTER IN [place] AND NEVER WENT BACK TO THE DOCTOR FOR POST OP FOLLOW UP. RIGHT FOOT SWOLLEN, RED, WARM WITH BLACK TISSUE WITH FLAKING AND SCALING. PEDAL PULSE PALPABLE WITH US. REDNESS MARKED ON LOWER LEG, PHOTOS IN CHART. CARDIZEM INFUSING AT 5ML/HR TO MAINTAIN HR IN LOW 100-110'S. BLOOD PRESSURE SOFT, MONITORING CLOSLY FOR CARDIZEM TITRATION. USES URINAL IN BED, REPOSITIONS SELF, FOOT EVALUATED BY DR. HERRERA. NPO AFTER MIDNIGHT FOR DR. DURAN CONSULT. RIGHT FOOT WRAPPED PER DR. HERRERA WITH XEROFORM, 4X4, ABD PAD, AND TROY WRAP VERY LOOSE. INSULIN COVERAGE PER EMAR. PT STATES HAS NOT USED HOME INSULIN BECAUSE IS "DISABLED". PALLATIVE CARE RN IN TO SEE PT IN AFTERNOON. WILL CONINUE TO MONITOR AND TREAT UNTIL CHANGE OF SHIFT.
[2021-11-15 17:57] LABS: Anion Gap 9 mmol/L (6-16); Blood Urea Nitrogen 41 mg/dL (8-24); CO2, Blood 21 mmol/L (21-32); Calcium, Blood 8.3 mg/dL (8.5-10.1); Chloride, Blood 98 mmol/L (98-108); Creatinine, Blood 0.91 mg/dL (0.60-1.20); Glomerular Filtration Rate >60 (60-); Glucose, Blood 148 mg/dL (70-99); Potassium, Blood 4.5 mmol/L (3.5-5.5); Sodium, Blood 128 mmol/L (136-145)
--- NOTE | 2021-11-15 17:59 | NUR ---
Addition to palliative assessment. Pt not using his insulin because unable to see syringe and read bottles due to declining vision.
[2021-11-15 22:03] LABS: Anion Gap 6 mmol/L (6-16); Blood Urea Nitrogen 41 mg/dL (8-24); Bun/Creatinine Ratio 46.5 (12.0-20.0); CO2, Blood 25 mmol/L (21-32); Calcium, Blood 8.2 mg/dL (8.5-10.1); Chloride, Blood 96 mmol/L (98-108); Creatinine, Blood 0.88 mg/dL (0.60-1.20); Glomerular Filtration Rate >60 (60-); Glucose, Blood 148 mg/dL (70-99); Potassium, Blood 4.3 mmol/L (3.5-5.5); Sodium, Blood 127 mmol/L (136-145)
[2021-11-16 01:29] LABS: Anion Gap 7 mmol/L (6-16); Blood Urea Nitrogen 40 mg/dL (8-24); Bun/Creatinine Ratio 46.6 (12.0-20.0); CO2, Blood 24 mmol/L (21-32); Calcium, Blood 7.8 mg/dL (8.5-10.1); Chloride, Blood 97 mmol/L (98-108); Creatinine, Blood 0.86 mg/dL (0.60-1.20); Glomerular Filtration Rate >60 (60-); Glucose, Blood 177 mg/dL (70-99); Potassium, Blood 4.4 mmol/L (3.5-5.5); Sodium, Blood 128 mmol/L (136-145)
--- NOTE | 2021-11-16 05:04 | NUR ---
END OF SHIFT SUMMARY: LIANNE HAS BEEN ON CARDIZEM WHEN RECIEVING PATIENT FROM DAY SHIFT AT A RATE OF 10, CHANGED TO RATE OF 5 DURING 1999 VITALS. NO ORDER WAS IN THE SYSTEM DUE TO ED ORDER BEING DC'D. NEW ORDER OBTAINED BY ONCALL PROVIDER. LIANNE PULSE HAS BEEN AFIB HIGH 80'S TO MID 100'S. DENIES CHEST PAIN, OR SOB. HAS BEEN USING THE URINAL AT THE BEDSIDE. BEEN NPO SINCE MIDNIGHT. PATIENT HAD A TORRES TREATED PAIN PER EMAR. PATIENT BLOOD CULTURES WERE POSITIVE FOR GRAM+ COCCI CLUSTERS. [id number] CORE WINDER MACHINE OPERATOR PROVIDER AWARE NO NEW ORDERS AT THIS TIME HE IS RECIEVING MULTIPLE ANTIBIOTICS ALREADY. MULTIPLE LAB DRAWS THORUGH THE NIGHT. BLOOD PRESSURES HAVE BEEN THERAPUETIC WITH CARDIZEM AT 5. WILL CONTINUE TO MONITOR AT THIS TIME.
[2021-11-16 05:30] LABS: BASOPHILS ABSOLUTE AUTO 0.06 K/mm3 (0.00-0.23); BASOPHILS PERCENT AUTO 0 % (0-2); EOSINOPHILS ABSOLUTE AUTO 0.11 K/mm3 (0.00-0.68); EOSINOPHILS PERCENT AUTO 1 % (0-6); Hematocrit 29.9 % (37.0-53.0); Hemoglobin 9.6 g/dL (13.5-17.5); IMMATURE GRAN ABSOLUTE AUTO 0.21 K/mm3 (0.00-0.10); IMMATURE GRAN PERCENT AUTO 1 % (0-1); LYMPHOCYTES ABSOLUTE AUTO 2.05 K/mm3 (0.84-5.20); LYMPHOCYTES PERCENT AUTO 9 % (21-46); MONOCYTES ABSOLUTE AUTO 1.52 K/mm3 (0.16-1.47); MONOCYTES PERCENT AUTO 7 % (4-13); Mean Corpuscular HGB 28.9 pg (26.0-34.0); Mean Corpuscular HGB Conc 32.1 g/dL (31.5-36.5); Mean Corpuscular Volume 90 fL (80-100); Mean Platelet Volume 10.1 fL (9.1-12.4); NEUTROPHILS PERCENT AUTO 83 % (41-73); Platelet Count 383 K/mm3 (150-400); RDW Coefficient Variation 14.3 % (11.7-14.2); Red Blood Cell Count 3.32 M/mm3 (4.30-5.90); White Blood Cell Count 23.25 K/mm3 (4.00-11.30)
[2021-11-16 06:01] LABS: Albumin, Blood 1.9 g/dL (3.4-5.0); Anion Gap 7 mmol/L (6-16); Blood Urea Nitrogen 36 mg/dL (8-24); Bun/Creatinine Ratio 40.5 (12.0-20.0); CO2, Blood 24 mmol/L (21-32); Calcium, Blood 7.9 mg/dL (8.5-10.1); Chloride, Blood 98 mmol/L (98-108); Creatinine, Blood 0.89 mg/dL (0.60-1.20); Glomerular Filtration Rate >60 (60-); Glucose, Blood 127 mg/dL (70-99); Phosphorus, Blood 2.8 mg/dL (2.5-4.9); Potassium, Blood 4.2 mmol/L (3.5-5.5); Sodium, Blood 129 mmol/L (136-145)
--- NOTE | 2021-11-16 11:36 | NUR ---
Spiritual Care Visit. Pt. is alert and welcomes my visit. Pt. is unsettled about the nature of his diagnosis. Pt. verbalizes that he finds himself in a depressed state. Through theraputic listening and pastoral family life counselor pt. displays evidence of engagement. Faciliate a life review. As Pt. responds, I feel that I may have seen this pt. during a previous hospitalization. Explore issues of jaylen and belief. Prayer with Pt. Pt. displays evidence of reduced anxiety, and verbalizes gratitude for spiritual care.
[2021-11-16 15:49] LABS: International Normalized Ratio 1.36
--- NOTE | 2021-11-16 17:45 | NUR ---
SHIFT SUMMARY; ASSUMED CARE AT 0700, A/A/OX4. RIGHT FOOT REMAINS WRAPPED WITH LOOSE TROY WRAP. CARDIZEM GTT AT 5ML/HR WHEN ASSUMING CARE. TAKEN TO RETOUCHER PHOTOENGRAVING DURING SHIFT FOR REVASC OF RIGHT LEG. CLEAR SITE DRESSING IN PLACE ON LEFT GROIN POST OP. REMAINED FLAT X4 HOURS PER ORDERS, NO BLEEDING, NO BRUISING OR SWELLING. HEPARIN STARTED 2 HOURS POST OP PER ORDERS. CARDIZEM INCREASED TO 10ML/HR AT 1600 FOR HR OF 130'S. NS INFUSING AT 100ML/HR PER ORDERS. RIGHT FOOT EVALUATED BY DR. HERRERA AND REWRAPPED IN AFTERNOON. PULSE ONLY PALBABLE TO ANKLE. ORTHO CONSULT PLACED. PT TO BE NPO AFTER MIDNIGHT. REPOSITIONS SELF IN BED, USES URINAL WITHOUT DIFFICULTY. PLEASANT AND COOPERATIVE WITH CARE. CAP REFILL OF RIGHT FOOT REMAINS GREATER THAN 3SECS, FOOT COOL TO TOUCH, DR. HERRERA AWARE. WILL CONTINUE TO MONITOR AND TREAT UNTIL CHANGE OF SHIFT.
[2021-11-17 06:19] LABS: BASOPHILS ABSOLUTE AUTO 0.05 K/mm3 (0.00-0.23); BASOPHILS PERCENT AUTO 0 % (0-2); EOSINOPHILS ABSOLUTE AUTO 0.08 K/mm3 (0.00-0.68); EOSINOPHILS PERCENT AUTO 0 % (0-6); Hematocrit 32.2 % (37.0-53.0); Hemoglobin 10.4 g/dL (13.5-17.5); IMMATURE GRAN ABSOLUTE AUTO 0.18 K/mm3 (0.00-0.10); IMMATURE GRAN PERCENT AUTO 1 % (0-1); LYMPHOCYTES ABSOLUTE AUTO 1.62 K/mm3 (0.84-5.20); LYMPHOCYTES PERCENT AUTO 8 % (21-46); MONOCYTES ABSOLUTE AUTO 1.22 K/mm3 (0.16-1.47); MONOCYTES PERCENT AUTO 6 % (4-13); Mean Corpuscular HGB 29.5 pg (26.0-34.0); Mean Corpuscular HGB Conc 32.3 g/dL (31.5-36.5); Mean Corpuscular Volume 91 fL (80-100); NEUTROPHILS ABSOLUTE AUTO 16.63 K/mm3 (1.96-9.15); NEUTROPHILS PERCENT AUTO 84 % (41-73); Platelet Count 422 K/mm3 (150-400); RDW Coefficient Variation 14.9 % (11.7-14.2); RDW Standard Deviation 49.2 fL (35.1-46.3); Red Blood Cell Count 3.53 M/mm3 (4.30-5.90); White Blood Cell Count 19.78 K/mm3 (4.00-11.30)
--- NOTE | 2021-11-17 06:19 | NUR ---
SHIFT SUMMARY: NO ACUTE CHANGES OVERNIGHT. LEFT GROIN SITE WNL. NPO SINCE MIDNIGHT. BLOOD GLUCOSE REMAINED HIGH OVERNIGHT IN 200'S. 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
[2021-11-17 06:43] LABS: Alanine Aminotransfer (ALT/SGP 53 U/L (12-78); Albumin, Blood 1.9 g/dL (3.4-5.0); Albumin/Globulin Ratio 0.4 (0.8-1.8); Alk Phos 132 U/L (50-136); Anion Gap 7 mmol/L (6-16); Aspartate Aminotrans (AST/SGOT 26 U/L (12-37); Bilirubin, Total 0.6 mg/dL (0.1-1.0); Blood Urea Nitrogen 28 mg/dL (8-24); Bun/Creatinine Ratio 38.9 (12.0-20.0); CO2, Blood 18 mmol/L (21-32); Calcium, Blood 7.5 mg/dL (8.5-10.1); Chloride, Blood 104 mmol/L (98-108); Creatinine, Blood 0.72 mg/dL (0.60-1.20); Globulin, Blood 4.4 g/dL (2.2-4.0); Glomerular Filtration Rate >60 (60-); Glucose, Blood 178 mg/dL (70-99); Potassium, Blood 4.2 mmol/L (3.5-5.5); Sodium, Blood 129 mmol/L (136-145); Total Protein, Blood 6.3 g/dL (6.4-8.2)
[2021-11-17 10:28] LABS: Vancomycin, Trough 17.8 ug/mL (5.0-10.0)
--- NOTE | 2021-11-17 14:25 | NUR ---
ECHOCARDIOGRAM COMPLETED
--- NOTE | 2021-11-17 16:22 | NUR ---
SHIFT SUMMARY Pt is a/o x 4 and has no c/o pain. His dressing to his right foot remains CDI. His access site to his left groin is soft, non-tender and without any bleeding and the dressing remains intact. He was scheduled for a BKA today but at lunch time he drank some milk and when the day surgery was notified they reported that it would have to be postponed. Dr Grubbs stopped by the room and said the surgery will be done tomorrow morning and gave orders for when to stop the heparin which was relayed to pharmacy and there is an updated order on the EMAR. He also ordered xrays which were completed this afternoon. midmorning the pt was complaining of malaise and upon assessment he was found to be diaphoretic and reported some SOB even though his sats remained in the high 90's, the HOB was elevated and NC was placed with o2 @ 1 lpm. VS remained stable with a CBG of 90, Dr Del Cid was notified and ordered an EKG, which was completed. The sweating and SOB resolved on its own and has not returned thus far this afternoon and he is back on RA. He remains on the IV heparin gtt dosed by the pharmacy and on the cardizem gtt @ 5mg. He is in a-fib @ 103. He denies any chest pain and SOB currently. Pt is aware and agreeable to the plan for tomorrow. He will be NPO at midnight tonight. He has been using the urinal at the bedside and uses his call light appropriately. He is resting in bed watching TV.
--- NOTE | 2021-11-18 06:00 | NUR ---
SHIFT SUMMARY: PT STABLE OVERNIGHT WITH NO ACUTE CHANGES. HR CONTINUES 90-110 ON CARDIZEM GTT @ 10 MG/HR. VSS. PT REPORTS INCREASED PAIN OVERNIGHT THAT DIDN'T SEEM TO WANT TO GO AWAY. PT NPO OVERNIGHT EXCEPT FOR SMALL SIPS OF WATER WITH MEDICATION. PT A&O W/OCCASSIONAL FORGETFULNESS AND PLEASANT.
[2021-11-18 08:01] LABS: BASOPHILS ABSOLUTE AUTO 0.06 K/mm3 (0.00-0.23); BASOPHILS PERCENT AUTO 0 % (0-2); EOSINOPHILS ABSOLUTE AUTO 0.08 K/mm3 (0.00-0.68); EOSINOPHILS PERCENT AUTO 0 % (0-6); Hematocrit 34.2 % (37.0-53.0); Hemoglobin 10.8 g/dL (13.5-17.5); IMMATURE GRAN ABSOLUTE AUTO 0.27 K/mm3 (0.00-0.10); IMMATURE GRAN PERCENT AUTO 1 % (0-1); LYMPHOCYTES ABSOLUTE AUTO 1.34 K/mm3 (0.84-5.20); LYMPHOCYTES PERCENT AUTO 7 % (21-46); MONOCYTES PERCENT AUTO 5 % (4-13); Mean Corpuscular HGB 28.8 pg (26.0-34.0); Mean Corpuscular HGB Conc 31.6 g/dL (31.5-36.5); Mean Corpuscular Volume 91 fL (80-100); Mean Platelet Volume 9.8 fL (9.1-12.4); NEUTROPHILS ABSOLUTE AUTO 16.58 K/mm3 (1.96-9.15); NEUTROPHILS PERCENT AUTO 86 % (41-73); Platelet Count 450 K/mm3 (150-400); Red Blood Cell Count 3.75 M/mm3 (4.30-5.90); White Blood Cell Count 19.33 K/mm3 (4.00-11.30)
[2021-11-18 08:11] LABS: International Normalized Ratio 1.35; Prothrombin Time Results 13.9 Sec (9.7-11.5)
[2021-11-18 08:19] LABS: Alanine Aminotransfer (ALT/SGP 50 U/L (12-78); Albumin/Globulin Ratio 0.4 (0.8-1.8); Alk Phos 126 U/L (50-136); Anion Gap 7 mmol/L (6-16); Aspartate Aminotrans (AST/SGOT 24 U/L (12-37); Bilirubin, Total 0.6 mg/dL (0.1-1.0); Blood Urea Nitrogen 22 mg/dL (8-24); Bun/Creatinine Ratio 33.2 (12.0-20.0); CO2, Blood 22 mmol/L (21-32); Calcium, Blood 7.7 mg/dL (8.5-10.1); Chloride, Blood 102 mmol/L (98-108); Creatinine, Blood 0.66 mg/dL (0.60-1.20); Globulin, Blood 4.5 g/dL (2.2-4.0); Glomerular Filtration Rate >60 (60-); Glucose, Blood 102 mg/dL (70-99); Sodium, Blood 131 mmol/L (136-145); Total Protein, Blood 6.5 g/dL (6.4-8.2)
--- NOTE | 2021-11-18 09:22 | NUR ---
11/18/21 0922 Henry Fournier RIGHT FOOT WRAPPED IN IMPERVIOUS STOCKINETTE AND COBAN BY MD MARIN PRE OPERATIVELY. RIGHT LOWER EXTREMITY THEN PREPPED APPROPRIATELY BY NAMAN RN.
--- NOTE | 2021-11-18 17:18 | NUR ---
SHIFT SUMMARY Pt is a/o x 4 today. He went down first thing this morning for his Right BKA surgery. When he returned to his room he was a/o x 4 just a little sleepy. He has a surgical dressing with a stockingette that is CDI. The cardizem was Dcd by Dr Merino and the heparin was not restarted after the surgery per Dr Haines and Dr Merino input orders for PO xarelto as reflected on the EMAR. Pt did c/o pain to his right leg and was medicated per emar. He has a good appetite and is eating dinner now on the side of the bed. He is still using the urinal. He is very pleasant and able to make his needs known. He has his call light in reach.
[2021-11-18 22:18] LABS: Vancomycin, Trough 17.7 ug/mL (5.0-10.0)
[2021-11-19 03:40] LABS: Hematocrit 34.5 % (37.0-53.0); Hemoglobin 11.2 g/dL (13.5-17.5); Mean Corpuscular HGB 29.2 pg (26.0-34.0); Mean Corpuscular HGB Conc 32.5 g/dL (31.5-36.5); Mean Corpuscular Volume 90 fL (80-100); Mean Platelet Volume 9.8 fL (9.1-12.4); Platelet Count 415 K/mm3 (150-400); RDW Coefficient Variation 15.2 % (11.7-14.2); RDW Standard Deviation 49.3 fL (35.1-46.3); Red Blood Cell Count 3.84 M/mm3 (4.30-5.90); White Blood Cell Count 20.75 K/mm3 (4.00-11.30)
[2021-11-19 04:00] LABS: Albumin, Blood 2.1 g/dL (3.4-5.0); Anion Gap 8 mmol/L (6-16); Blood Urea Nitrogen 29 mg/dL (8-24); Bun/Creatinine Ratio 40.2 (12.0-20.0); CO2, Blood 21 mmol/L (21-32); Calcium, Blood 7.8 mg/dL (8.5-10.1); Chloride, Blood 99 mmol/L (98-108); Creatinine, Blood 0.72 mg/dL (0.60-1.20); Glomerular Filtration Rate >60 (60-); Glucose, Blood 336 mg/dL (70-99); Phosphorus, Blood 2.8 mg/dL (2.5-4.9); Potassium, Blood 5.7 mmol/L (3.5-5.5); Sodium, Blood 128 mmol/L (136-145)
--- NOTE | 2021-11-19 04:05 | NUR ---
SHIFT SUMMARY: NO ACUTE CHANGES OVERNIGHT. VSS. SURGICAL SITE WNL. PT PAIN CONTROLLED WITH COMBINATION OF FENTANYL AND HYDROCODONE- 2 DOSES OF EACH OVERNIGHT.
--- NOTE | 2021-11-19 04:28 | NUR ---
PT FLIPPED BACK INTO AFIB WITH RATES SUSTAINING 120's AND OCCASSIONALLY TO 140. MD CALLED-GIVE 5MG IV LOPRESSOR NOW AND 0730 DOSE ORALLY NOW.
--- NOTE | 2021-11-19 16:47 | NUR ---
SHIFT SUMMARY Pt continues to be a/o x 4. This morning he reported feeling a little cloudy but that quickly cleared up after breakfast and some pain medication. He did report that he did not like the way the fentanyl made him feel so he didnt want any of that today. Palliative care RN stopped by to see the pt and discussed some med changes with Dr Merino, sme of which are reflected on the EMAR. The surgical dressing remains CDI with stockingette in place. A call was placed to Dr Haines for wound care orders but there was no answer and a message was left for a call back. The pt reported today that since he does not have teeth the food has been difficult for him to eat so we changed his texture to soft and then asked the kitchen to put his food in bowls to make it easier for him to eat, this was a good intervention for him because he has been taking bites of his food all afternoon. He does still report a poor appetite but was pleased with the new food option. This morning he was bale to habe a BM on the bed samano and this brought up the point of his transfer status and he was asking if he will be able to use the toilet in the future since now both legs have been amputated. An order for PT/OT flex was obtained and the PT came by and worked with him in bed. She said for now he will need to use the bed samano but she was going to look for some different ways to get him to a commode or to the toilet. For now he continues to use the urinal. He has been napping on and off today and reported that he feels much better when he is able to sleep. He has the TV on and has his call light and personal items in reach on the table.
--- NOTE | 2021-11-19 18:39 | NUR ---
Multiple visits today to review pt needs. He is still having some pain and discomfort. Pt sleeps most of the tiem as that is how he has gotten by at home in coping with the pain. Pt still having some hiccups and belching. pt on finger foods and struggling with food becase of no teeth. Reviw of pt with nurisng and physian. Suggest increasing his long acting pain med, bowel protocol, change diet to soft. Pt may benefit from gabipentin. Will update [place] palliative care team on his needs and review with case liner. Will see what pt/ot reccomend. Will also continue to see for therputic visits since he has only hi DIL as family.
[2021-11-20 04:10] LABS: Hematocrit 36.1 % (37.0-53.0); Hemoglobin 11.1 g/dL (13.5-17.5); Mean Corpuscular HGB 28.6 pg (26.0-34.0); Mean Corpuscular HGB Conc 30.7 g/dL (31.5-36.5); Mean Corpuscular Volume 93 fL (80-100); Mean Platelet Volume 9.8 fL (9.1-12.4); Platelet Count 527 K/mm3 (150-400); RDW Coefficient Variation 15.4 % (11.7-14.2); RDW Standard Deviation 52.4 fL (35.1-46.3); Red Blood Cell Count 3.88 M/mm3 (4.30-5.90); White Blood Cell Count 23.69 K/mm3 (4.00-11.30)
[2021-11-20 04:36] LABS: Albumin, Blood 2.1 g/dL (3.4-5.0); Anion Gap 6 mmol/L (6-16); Blood Urea Nitrogen 35 mg/dL (8-24); CO2, Blood 22 mmol/L (21-32); Calcium, Blood 8.2 mg/dL (8.5-10.1); Chloride, Blood 101 mmol/L (98-108); Creatinine, Blood 0.78 mg/dL (0.60-1.20); Glomerular Filtration Rate >60 (60-); Glucose, Blood 166 mg/dL (70-99); Phosphorus, Blood 2.5 mg/dL (2.5-4.9); Potassium, Blood 5.4 mmol/L (3.5-5.5); Sodium, Blood 129 mmol/L (136-145)
--- NOTE | 2021-11-20 06:21 | NUR ---
PT CONFUSED. ON TELE AFIB, HEART RATE SUSTAINED IN 120s MD NOTIFIED OERDER RECEIVED, MEDICATION GIVEN PER eMAR. PT REPORT PAIN , PAIN MEDICATION ADMINISTERED ORDERED. PT ON RA SATs >90s. PT HAD LOGAN BATH WITH FULL LINEN CHANGED. DENIES CHEST\PRESSURE AT THIS TIME. CALL LIGHT WITHING REACH/ SIDE RAIL UP X3.
--- NOTE | 2021-11-20 17:53 | NUR ---
SHIFT SUMMARY; ASSUMED CARE AT 0700, A/A/OX3 WITH INTERMITANT CONFUSION. RIGHT BKA DRESSING CHANGED YESTERDAY BY DR. SALCIDO, REMAINS C/D/I. REPOSITIONS SELF IN BED, USES URINAL, WORKED WITH PT/OT TODAY. INSULIN COVERAGE DURING SHIFT PER EMAR. REMAINS IN AFIB WITH RATE 100-115, DENIES CP OR SOB. NO ACUTE CHANGES, WILL CONTINUE TO MONITOR AND TREAT UNTIL CHANGE OF SHIFT.
--- NOTE | 2021-11-20 18:24 | NUR ---
pt improved pain control he is sleeping more which is good he has been to painfull to really rest. will continue to monitor symptoms.
--- NOTE | 2021-11-21 06:23 | NUR ---
INTERMITTENT CONFUSION. ON TELE AFIB WITH HEART RATE IN 120's sustained for few minutes back to 110's SYMPTOMATIC, PT REPORT DIZINESS , DENIES CHEST PAIN/PRESSURE. MD NOTIFIED ONE TIME ORDER FOR CARDIZEM IV PUSH. PT REPORT RIGHT LEG 9/10 PAIN, PAIN MEDS GIVEN PER eMAR. PT HAD NO MORNING LAB ORDER, WILL NOTIFY ONCOMING SHIFT. RIGHT LEG BKA DRESSING INTACT, NO DRAINAGE NOTED. PATIENT EDUCATED ON PLAN OF CARE , VERBALIZED UNDERSTAIND. CALL LIGHT WITHIN REACH AND SIDE RAIL UP X3.
[2021-11-21 10:52] LABS: Vancomycin, Trough 24.7 ug/mL (5.0-10.0)
[2021-11-21 12:57] LABS: BASOPHILS ABSOLUTE AUTO 0.09 K/mm3 (0.00-0.23); BASOPHILS PERCENT AUTO 0 % (0-2); EOSINOPHILS ABSOLUTE AUTO 0.11 K/mm3 (0.00-0.68); EOSINOPHILS PERCENT AUTO 1 % (0-6); Hematocrit 38.3 % (37.0-53.0); Hemoglobin 11.8 g/dL (13.5-17.5); IMMATURE GRAN ABSOLUTE AUTO 0.97 K/mm3 (0.00-0.10); IMMATURE GRAN PERCENT AUTO 4 % (0-1); LYMPHOCYTES ABSOLUTE AUTO 3.53 K/mm3 (0.84-5.20); LYMPHOCYTES PERCENT AUTO 16 % (21-46); MONOCYTES ABSOLUTE AUTO 1.65 K/mm3 (0.16-1.47); MONOCYTES PERCENT AUTO 7 % (4-13); Mean Corpuscular HGB 28.4 pg (26.0-34.0); Mean Corpuscular HGB Conc 30.8 g/dL (31.5-36.5); Mean Corpuscular Volume 92 fL (80-100); Mean Platelet Volume 9.6 fL (9.1-12.4); NEUTROPHILS ABSOLUTE AUTO 15.97 K/mm3 (1.96-9.15); NEUTROPHILS PERCENT AUTO 72 % (41-73); NRBC ABSOLUTE 0.09 K/mm3 (0.00-0.02); NRBC Auto 0.4 /100 WBC (0.0-0.2); Platelet Count 555 K/mm3 (150-400); RDW Coefficient Variation 15.7 % (11.7-14.2); RDW Standard Deviation 51.7 fL (35.1-46.3); Red Blood Cell Count 4.15 M/mm3 (4.30-5.90); White Blood Cell Count 22.32 K/mm3 (4.00-11.30)
[2021-11-21 13:17] LABS: Albumin, Blood 2.2 g/dL (3.4-5.0); Anion Gap 8 mmol/L (6-16); Blood Urea Nitrogen 37 mg/dL (8-24); Bun/Creatinine Ratio 42.4 (12.0-20.0); CO2, Blood 21 mmol/L (21-32); Calcium, Blood 8.1 mg/dL (8.5-10.1); Chloride, Blood 100 mmol/L (98-108); Creatinine, Blood 0.87 mg/dL (0.60-1.20); Glomerular Filtration Rate >60 (60-); Glucose, Blood 186 mg/dL (70-99); Phosphorus, Blood 2.5 mg/dL (2.5-4.9); Potassium, Blood 4.8 mmol/L (3.5-5.5); Sodium, Blood 129 mmol/L (136-145)
--- NOTE | 2021-11-21 17:58 | NUR ---
PT SUMMARY: PT REMAINS A&OX3, SOME CONFUSION AND FORGETFULNESS. VITALS HRR 100-140'S PO METOPROLOL XL 37.5MG WAS RESUMED PT WILL STILL TACH UP TO 150'S MOSTLY WITH EXERTION PROVIDER AWARE, BP SYSTOLIC 120'S-130'S, SATS ABOVE 95% ON RA, AFEBRILE. PT NOTED SOME PURPURA RASH ON THE EXTREMITIES BY THE END OF THE SHIFT PT STATED HE GETS RASH FROM TAPES AND COBAN, NOT ITCHY AND DOESNT BOTHER THE PT. PAIN MANAGED BY PAIN MEDS WITH POSITIVE RESULTS LEGS ELEVATED IN PILLOWS RIGHT BKA STUMP DRESSING WAS CHANGED, LATRICIA REMAINED INTACT NO REDNESS OR DRAINAGE NOTED. PT INCONTINENT/CONTINENT OF URINE OFFERED URINAL MULTIPLE TIMES HAD TOTAL OF 550 URINE OUT PUT FOR THE SHIFT, PT BLADDER SCANNED BEFORE THE END OF THE SHIFT HAD >600MLS RETAINED, HAD INCONTINENT VOID IN THE BED AND HAD 250MLS URINE OUT WHEN URINAL WAS OFFERED. PT NOW RESTING IN BED WITH CALL LIGHTS IN REACH. POOR APPETITE FOR THE SHIFT. NO OTHER ISSUES REPORTED, WILL REPORT TO ONCOMING SHIFT
--- NOTE | 2021-11-22 05:06 | NUR ---
SHIFT SUMMARY PT ALERT AND ORIENTED X3. UNABLE TO TELL MONTH AND DISORIENTED TO TIME. FORGETFUL, OFTEN REPEATING SAME QUESTIONS. HR AFIB 100'S-130'S. BP STABLE. AFEBRILE. C/O 9/10 PAIN IN RIGHT LEG. RELIEVED PER EMAR. IN BED SLEEPING WITH CALL ALARM AT SIDE. WILL CONTINUE TO MONITOR UNTIL REPORT GIVEN TO DAYSHIFT RN.
[2021-11-22 05:26] LABS: BASOPHILS ABSOLUTE AUTO 0.08 K/mm3 (0.00-0.23); BASOPHILS PERCENT AUTO 0 % (0-2); EOSINOPHILS PERCENT AUTO 1 % (0-6); Hematocrit 37.5 % (37.0-53.0); IMMATURE GRAN ABSOLUTE AUTO 0.88 K/mm3 (0.00-0.10); IMMATURE GRAN PERCENT AUTO 4 % (0-1); LYMPHOCYTES ABSOLUTE AUTO 2.82 K/mm3 (0.84-5.20); LYMPHOCYTES PERCENT AUTO 14 % (21-46); MONOCYTES ABSOLUTE AUTO 1.27 K/mm3 (0.16-1.47); MONOCYTES PERCENT AUTO 6 % (4-13); Mean Corpuscular Volume 91 fL (80-100); Mean Platelet Volume 9.8 fL (9.1-12.4); NEUTROPHILS ABSOLUTE AUTO 15.02 K/mm3 (1.96-9.15); NEUTROPHILS PERCENT AUTO 74 % (41-73); NRBC ABSOLUTE 0.12 K/mm3 (0.00-0.02); NRBC Auto 0.6 /100 WBC (0.0-0.2); Platelet Count 505 K/mm3 (150-400); RDW Coefficient Variation 15.7 % (11.7-14.2); RDW Standard Deviation 50.9 fL (35.1-46.3); Red Blood Cell Count 4.14 M/mm3 (4.30-5.90); White Blood Cell Count 20.27 K/mm3 (4.00-11.30)
[2021-11-22 05:50] LABS: Anion Gap 8 mmol/L (6-16); Blood Urea Nitrogen 38 mg/dL (8-24); Bun/Creatinine Ratio 42.5 (12.0-20.0); CO2, Blood 23 mmol/L (21-32); Chloride, Blood 100 mmol/L (98-108); Glomerular Filtration Rate >60 (60-); Glucose, Blood 153 mg/dL (70-99); Potassium, Blood 4.4 mmol/L (3.5-5.5); Sodium, Blood 131 mmol/L (136-145)
[2021-11-22 18:07] LABS: Source, Urine Foley catheter
--- NOTE | 2021-11-22 18:14 | NUR ---
PT SUMMARY: PT TRANSITIONED TO MEDICAL STATUS WITH TELE. VITALS HRR AFIB 110-150'S MOST OF THE SHIFT WAS GIVEN METOPROLOL TARTRATE 25 MG HRR CURRENTLY 100-115'S, BP SYSTOLIC 120'S, SATS ABOVE 95% ON RA, AFEBRILE. PT C/O FATIGUE POOR APPETITE WEAKNESS REFUSED TO WORK WITH PT TODAY WAS ABLE TO WORK WITH OT SAT ON THE SIDE OF THE BED BUT GOT EASILY WORN OUT, PT WAS ABLE TO VEBALIZED TO THE PROVIDER. PT STILL ABLE TO HELP WITH REPOSITIONING USES URINAL INDEPENDENTLY IN THE ROOM. HAD SOME TESTS DONE TODAY FOR SKIN PURPURA/RASHES ON EXTREMITIES, UA SENT WELL. AWAITING FOR RESULT. PT HAD PAIN MEDS X1 FOR THE SHIFT. PT HAS BEEN RESTING MOST OF THE SHIFT, OFFERED HEALTH SHAKE/ENSURE DIDNT REALLY LIKE IT. NO OTHER ISSUES REPORTED, PT ABLE TO MAKE NEEDS KNOW, CALL LIGHTS IN REACH WILL REPORT TO ONCOMING SHIFT
[2021-11-22 18:18] LABS: Bilirubin, Urine Neg (Neg); Blood, Urine 4+ (Neg); Glucose Qualitative, Urine Neg (Neg); Ketones, Urine Neg (Neg); Leukocyte Esterase, Urine 1+ (Neg); Nitrite, Urine Neg (Neg); Protein, Urine 3+ (Neg); Urobilinogen, Urine NORM (Normal)
[2021-11-22 18:53] LABS: Appearance, Urine Hazy (Clear); Color, Urine Pale Yellow (P-Yellow)
[2021-11-22 18:54] LABS: Bacteria Mod /hpf; Squamous Epithelial Cells Rare /hpf (Few); Yeast/Fungi Urine Rare /hpf
[2021-11-23 03:22] LABS: Vancomycin, Trough 19.3 ug/mL (5.0-10.0)
--- NOTE | 2021-11-23 05:47 | NUR ---
SHIFT SUMMARY PT ALERT AND ORIENTED X3. UNABLE TO TELL DATE/TIME. FORGETFUL AT TIMES, OFTEN REPEATING QUESTIONS. AFEBRILE. HR AFIB 100'S-130'S. C/O -06/25 RIGHT LEG PAIN. MEDICATED PER EMAR X3. PETECHAIE ON ALL EXTREMETIES. NOT PRESENT ON TRUNK. PT STATES IT DOES NOT ITCH. PT SLEEPING MOST OF NIGHT. IN BED RESTING WITH CALL ALARM AT SIDE. WILL CONTINUE TO MONITOR UNTIL REPORT GIVEN TO DAYSHIFT RN
[2021-11-23 08:11] LABS: COMPLEMENT C3, SERUM 47 mg/dL (82-167); COMPLEMENT C4, SERUM 10 mg/dL (12-38)
--- NOTE | 2021-11-23 08:37 | NUR ---
AM NOTE PT ALERT AND ORIENTED X4. HE APPEARED LETHARGIC THIS AM BUT WOULD WAKE TO VERBAL STIMULI, PAIN 8/10 REPORTED IN RIGHT LEG, SEE EMAR FOR PAIN RELIEF MEASURES. CBG OF 77 NOTED THIS AM, LONG ACTING INSULIN GIVEN DUE TO PATIENT HAVING ADEQUATE PO INTAKE AT BREAKFAST. WILL CONTINUE TO MONITOR.
[2021-11-23 08:57] LABS: BASOPHILS PERCENT AUTO 0 % (0-2); EOSINOPHILS ABSOLUTE AUTO 0.23 K/mm3 (0.00-0.68); EOSINOPHILS PERCENT AUTO 1 % (0-6); Hematocrit 40.2 % (37.0-53.0); Hemoglobin 12.7 g/dL (13.5-17.5); IMMATURE GRAN ABSOLUTE AUTO 0.89 K/mm3 (0.00-0.10); IMMATURE GRAN PERCENT AUTO 4 % (0-1); LYMPHOCYTES ABSOLUTE AUTO 3.62 K/mm3 (0.84-5.20); LYMPHOCYTES PERCENT AUTO 15 % (21-46); MONOCYTES ABSOLUTE AUTO 1.89 K/mm3 (0.16-1.47); MONOCYTES PERCENT AUTO 8 % (4-13); Mean Corpuscular HGB 29.1 pg (26.0-34.0); Mean Corpuscular HGB Conc 31.6 g/dL (31.5-36.5); Mean Corpuscular Volume 92 fL (80-100); Mean Platelet Volume 9.6 fL (9.1-12.4); NEUTROPHILS ABSOLUTE AUTO 18.15 K/mm3 (1.96-9.15); NEUTROPHILS PERCENT AUTO 73 % (41-73); NRBC Auto 0.4 /100 WBC (0.0-0.2); Platelet Count 493 K/mm3 (150-400); RDW Coefficient Variation 16.2 % (11.7-14.2); RDW Standard Deviation 53.1 fL (35.1-46.3); Red Blood Cell Count 4.37 M/mm3 (4.30-5.90); White Blood Cell Count 24.88 K/mm3 (4.00-11.30)
[2021-11-23 09:16] LABS: HIV AB/P24 AG SCREEN Non Reactive (Non Reactive)
[2021-11-23 09:18] LABS: Anion Gap 5 mmol/L (6-16); Blood Urea Nitrogen 37 mg/dL (8-24); Bun/Creatinine Ratio 37.3 (12.0-20.0); CO2, Blood 29 mmol/L (21-32); Calcium, Blood 8.2 mg/dL (8.5-10.1); Chloride, Blood 99 mmol/L (98-108); Creatinine, Blood 0.99 mg/dL (0.60-1.20); Glomerular Filtration Rate >60 (60-); Glucose, Blood 78 mg/dL (70-99); Potassium, Blood 4.5 mmol/L (3.5-5.5); Sodium, Blood 133 mmol/L (136-145)
--- NOTE | 2021-11-23 12:58 | NUR ---
CARE NOTE PATIENT MORE AWAKE AND LESS LETHARGIC LATER THIS AM/EARLY AFTERNOON, PAIN 0F 9/10 REPORTED SEE EMAR FOR PAIN MANAGEMENT
--- NOTE | 2021-11-23 18:21 | NUR ---
SHIFT SUMMARY PATIENT TRANSFER FROM PCU. A&0 3-4, FORGET AT TIMES. WORKED WITH OT THIS AFTERNOON. HR WENT INTO 140'S. MEDICATED HR ONCE THIS SHIFT. PATIENT RECEIVED PAIN MEDICATION RIGHT BEFORE ARRIVING FROM PCU. NO COMPLAINTS OF PAIN FOR THIS RN. BED IN LOW POSITION WITH BED ALARM ON. WILL CONTINUE TO MONITOR.
[2021-11-23 21:10] LABS: ANA DIRECT Negative (Negative); ANTI-DNA (DS) AB QN 2 IU/mL (0-9); RNP ANTIBODIES <0.2 AI (0.0-0.9); SJOGREN'S ANTI-SS-A <0.2 AI (0.0-0.9); SJOGREN'S ANTI-SS-B <0.2 AI (0.0-0.9); SMITH ANTIBODIES <0.2 AI (0.0-0.9)
--- NOTE | 2021-11-24 05:39 | NUR ---
SHIFT SUMMARY PATIENT ALERT AND ORIENTED X3. MEDICATED PER EMAR FOR PAIN. HAD NO COMPLAINTS OF SHORTNESS OF BREATH. NO ACUTE ISSUES NOTED OVERNIGHT. CALL LIGHT WITHIN REACH. REPORT GIVEN TO ONCOMING RN.
[2021-11-24 06:02] LABS: BASOPHILS ABSOLUTE AUTO 0.07 K/mm3 (0.00-0.23); BASOPHILS PERCENT AUTO 0 % (0-2); EOSINOPHILS ABSOLUTE AUTO 0.17 K/mm3 (0.00-0.68); EOSINOPHILS PERCENT AUTO 1 % (0-6); Hematocrit 40.3 % (37.0-53.0); Hemoglobin 12.4 g/dL (13.5-17.5); IMMATURE GRAN PERCENT AUTO 2 % (0-1); LYMPHOCYTES ABSOLUTE AUTO 2.73 K/mm3 (0.84-5.20); LYMPHOCYTES PERCENT AUTO 13 % (21-46); MONOCYTES ABSOLUTE AUTO 1.77 K/mm3 (0.16-1.47); MONOCYTES PERCENT AUTO 9 % (4-13); Mean Corpuscular HGB 28.4 pg (26.0-34.0); Mean Corpuscular HGB Conc 30.8 g/dL (31.5-36.5); Mean Corpuscular Volume 92 fL (80-100); Mean Platelet Volume 9.8 fL (9.1-12.4); NEUTROPHILS ABSOLUTE AUTO 15.61 K/mm3 (1.96-9.15); NEUTROPHILS PERCENT AUTO 75 % (41-73); NRBC ABSOLUTE 0.05 K/mm3 (0.00-0.02); NRBC Auto 0.2 /100 WBC (0.0-0.2); Platelet Count 410 K/mm3 (150-400); RDW Coefficient Variation 16.7 % (11.7-14.2); RDW Standard Deviation 53.3 fL (35.1-46.3); Red Blood Cell Count 4.37 M/mm3 (4.30-5.90); White Blood Cell Count 20.75 K/mm3 (4.00-11.30)
[2021-11-24 06:27] LABS: Anion Gap 7 mmol/L (6-16); Blood Urea Nitrogen 43 mg/dL (8-24); Bun/Creatinine Ratio 36.8 (12.0-20.0); CO2, Blood 23 mmol/L (21-32); Calcium, Blood 8.1 mg/dL (8.5-10.1); Chloride, Blood 101 mmol/L (98-108); Creatinine, Blood 1.17 mg/dL (0.60-1.20); Glomerular Filtration Rate >60 (60-); Glucose, Blood 96 mg/dL (70-99); Sodium, Blood 131 mmol/L (136-145)
[2021-11-24 15:18] LABS: Vancomycin, Trough 25.3 ug/mL (5.0-10.0)
[2021-11-24 16:07] LABS: HEPATITIS C QUANTITATION HCV Not Detected IU/mL (.)
--- NOTE | 2021-11-24 19:28 | NUR ---
SHIFT SUMMARY PATIENT A&O X3 FORGETFUL. ON RA. PATIENT ON TELE A-FIB. HR ELEVATED 130, MEDICATED PER NOV. PATIENT WORKED WITH PT TODAY. C/O PAIN. MEDICATED PER NOV. RASH ON EXTREMITIES. SKIN BIOPSY TAKEN YESTERDAY FOR RASH. 2 STITCHES ON L ARM FROM BIOPSY OPEN TO AIR. REPORT GIVEN TO ONCOMING RN.
--- NOTE | 2021-11-25 05:04 | NUR ---
PT IS SLEEPING THIS MORNING. PT IS ALERT AND ORIENTED X 3-4, C/O PAIN IN BILAT LE MEDICATED PER EMAR. NO C/O SOB OR N/V. PT LE WOUNDS LOOK INTACT NO DRAINAGE OR OPENINGS NOTED. NO ACUTE EVENTS OVERNIGHT, PT CALL LIGHT AND BELONGINGS WITHIN REACH.
[2021-11-25 05:13] LABS: BASOPHILS ABSOLUTE AUTO 0.09 K/mm3 (0.00-0.23); BASOPHILS PERCENT AUTO 0 % (0-2); EOSINOPHILS ABSOLUTE AUTO 0.08 K/mm3 (0.00-0.68); EOSINOPHILS PERCENT AUTO 0 % (0-6); Hematocrit 41.8 % (37.0-53.0); Hemoglobin 12.6 g/dL (13.5-17.5); IMMATURE GRAN ABSOLUTE AUTO 0.21 K/mm3 (0.00-0.10); IMMATURE GRAN PERCENT AUTO 1 % (0-1); LYMPHOCYTES ABSOLUTE AUTO 2.77 K/mm3 (0.84-5.20); LYMPHOCYTES PERCENT AUTO 13 % (21-46); MONOCYTES ABSOLUTE AUTO 1.76 K/mm3 (0.16-1.47); MONOCYTES PERCENT AUTO 8 % (4-13); Mean Corpuscular HGB 28.9 pg (26.0-34.0); Mean Corpuscular HGB Conc 30.1 g/dL (31.5-36.5); Mean Corpuscular Volume 96 fL (80-100); Mean Platelet Volume 9.8 fL (9.1-12.4); NEUTROPHILS ABSOLUTE AUTO 17.18 K/mm3 (1.96-9.15); NEUTROPHILS PERCENT AUTO 78 % (41-73); NRBC ABSOLUTE 0.03 K/mm3 (0.00-0.02); NRBC Auto 0.1 /100 WBC (0.0-0.2); Platelet Count 367 K/mm3 (150-400); RDW Coefficient Variation 17.1 % (11.7-14.2); RDW Standard Deviation 57.4 fL (35.1-46.3); Red Blood Cell Count 4.36 M/mm3 (4.30-5.90); White Blood Cell Count 22.09 K/mm3 (4.00-11.30)
[2021-11-25 05:37] LABS: Bun/Creatinine Ratio 37.1 (12.0-20.0); Creatinine, Blood 1.43 mg/dL (0.60-1.20); Potassium, Blood 5.2 mmol/L (3.5-5.5)
--- NOTE | 2021-11-25 16:17 | NUR ---
DAY SHIFT SUMMARY 66 YR OLD MALE PT ADMITTED FOR SEPSIS D/T RT FOOT INFECTION. PT ON TELE WITH AFIB AT 128. A/O X3, FORGETFUL, QUIET, FLAT AFFECT. PT ON RA. PETECHIA PRESENT ACROSS SKIN. CALL LIGHT WITHIN REACH, PT ABLE TO CALL APPROPRIATELY. NO ACUTE CHANGES THIS SHIFT.
[2021-11-25 20:45] LABS: Vancomycin, Trough 24.1 ug/mL (5.0-10.0)
[2021-11-26] MEDS ORDERED: Aspir 8181 MG PO (05:08)
[2021-11-26] MEDS ORDERED: FISH OIL 1,2001 EAC7 PO (05:11)
[2021-11-26] MEDS ORDERED: NOVOLOG FL100 UNIT/3 SC ×2 (05:13→05:14)
--- NOTE | 2021-11-26 05:16 | NUR ---
PT IS ASLEEP THIS MORNING. PT IS ALERT AND OREINTED BUT WAS A BIT FORGETFUL LAST NIGHT, TELE- AFIB IN THE 115-120'S PT DID JUMP UP TO THE 140'S BUT WAS ABLE TO COME DOWN ON ITS OWN, PT ON RA SATTING >95 NO SOB, PT USING THE URINAL AND BEDPAN JUST FINE, PETICHIAE OF THE SKIN LOOKS IF IT HAS SPREAD AND SOME OF THE SPOTS HAVE INCREASED IN SIZE. PT DOES COMPLAIN OF SOME ITCHINESS. PT REPORTED PAIN IN THE LEGS AND WAS MEDICATED PER EMAR. NO ACUTE EVENTS OVERNIGHT, PT BELONGINGS AND CALL LIGHT WITHIN REACH.
[2021-11-26 05:39] LABS: Vancomycin, Random 21.4 ug/mL
[2021-11-26 08:14] LABS: BASOPHILS ABSOLUTE AUTO 0.07 K/mm3 (0.00-0.23); BASOPHILS PERCENT AUTO 0 % (0-2); EOSINOPHILS ABSOLUTE AUTO 0.11 K/mm3 (0.00-0.68); EOSINOPHILS PERCENT AUTO 1 % (0-6); Hematocrit 41.2 % (37.0-53.0); Hemoglobin 12.7 g/dL (13.5-17.5); IMMATURE GRAN ABSOLUTE AUTO 0.14 K/mm3 (0.00-0.10); IMMATURE GRAN PERCENT AUTO 1 % (0-1); LYMPHOCYTES ABSOLUTE AUTO 2.47 K/mm3 (0.84-5.20); LYMPHOCYTES PERCENT AUTO 14 % (21-46); MONOCYTES ABSOLUTE AUTO 1.37 K/mm3 (0.16-1.47); MONOCYTES PERCENT AUTO 8 % (4-13); Mean Corpuscular HGB 28.2 pg (26.0-34.0); Mean Corpuscular HGB Conc 30.8 g/dL (31.5-36.5); NEUTROPHILS ABSOLUTE AUTO 13.13 K/mm3 (1.96-9.15); NEUTROPHILS PERCENT AUTO 76 % (41-73); NRBC ABSOLUTE 0.02 K/mm3 (0.00-0.02); NRBC Auto 0.1 /100 WBC (0.0-0.2); Platelet Count 375 K/mm3 (150-400); RDW Coefficient Variation 17.2 % (11.7-14.2); RDW Standard Deviation 54.6 fL (35.1-46.3); Red Blood Cell Count 4.51 M/mm3 (4.30-5.90); White Blood Cell Count 17.29 K/mm3 (4.00-11.30)
[2021-11-26 08:18] LABS: Mean Corpuscular Volume 91 fL (80-100)
[2021-11-26 08:32] LABS: Albumin, Blood 2.1 g/dL (3.4-5.0); Anion Gap 5 mmol/L (6-16); Blood Urea Nitrogen 65 mg/dL (8-24); Bun/Creatinine Ratio 35.1 (12.0-20.0); CO2, Blood 23 mmol/L (21-32); Chloride, Blood 102 mmol/L (98-108); Creatinine, Blood 1.85 mg/dL (0.60-1.20); Glomerular Filtration Rate 36 (60-); Glucose, Blood 130 mg/dL (70-99); Magnesium, Blood 2.4 mg/dL (1.6-2.4); Potassium, Blood 5.5 mmol/L (3.5-5.5); Sodium, Blood 130 mmol/L (136-145)
--- NOTE | 2021-11-26 20:07 | NUR ---
END OF SHIFT SUMMARY: PATIENT PAIN MANAGED WITH PRN PAIN MEDICATION DURING THE SHIFT. PATIENT HAS SPASMS IN HIS RIGHT BKA WITH REPOSITIONING. PATIENT REPORTED FEELING "OLD AND UNWELL" THIS MORNING AND SUBSEQUENTLY REPORTED DECREASED APPETITE. PATIENT REPORTED FEELING IMPROVEMENT WITH PAIN CONTROL. PATIENT CONTINUED TO HAVE HR AROUND 120 PER TELEMETRY. PATIENT DENIED CHEST PRESSURE, PAIN OR DISCOMFORT. MEDICATED PER PRNS. PROVIDED UPDATES TO DR. MCINTOSH AND INITIATED IVFS PER ORDERS. PATIENT HAS RED SKIN IN HIS GROIN AND A EDEMATOUS SCROTUM. PATIENT REPORTS THAT THE EDEMATOUS SCROTUM IS NORMAL FOR HIM. ORDER RECEIVED FOR MEDICATED POWDER FOR HIS GROIN.
--- NOTE | 2021-11-27 04:20 | NUR ---
PT IS SLEEPING THIS MORNING. ALERT AND ORIENTED X3-4 SHE CAN BE FORGETFUL SOMETIMES, PT NOT MONITORED PULSES 2/, LE EDEMA, PT ON RA SATTING >95, PT IS STILL COMPLAINING OF LOOSE STOOLS. VITALS HAVE OTHERWISE BEEN STABLE OVERNIGHT. NO C/O PAIN, SOB, OR N/V. PT CALL LIGHT AND BELONGINGS WITHIN REACH.
--- NOTE | 2021-11-27 04:29 | NUR ---
PLEASE DISREGARD LAST NOTE IT WAS IN ERROR. PT IS AWAKE THIS MORNING WATCHING TV. PT IS ALERT AND OREIENTED X3, PT MONITORED AFIB IN THE 115-120'S, PT ON RA SATTING >95 NO C/O SOB, PT C/O PAIN MEDICATED PER EMAR. OTHERWISE NO ACUTE EVENTS OVERNIGHT. PT CALL LIGHT AND BELONGINGS WITHIN REACH.
[2021-11-27 04:39] LABS: BASOPHILS ABSOLUTE AUTO 0.07 K/mm3 (0.00-0.23); BASOPHILS PERCENT AUTO 0 % (0-2); EOSINOPHILS ABSOLUTE AUTO 0.08 K/mm3 (0.00-0.68); EOSINOPHILS PERCENT AUTO 1 % (0-6); Hematocrit 40.6 % (37.0-53.0); Hemoglobin 12.4 g/dL (13.5-17.5); IMMATURE GRAN ABSOLUTE AUTO 0.16 K/mm3 (0.00-0.10); IMMATURE GRAN PERCENT AUTO 1 % (0-1); LYMPHOCYTES ABSOLUTE AUTO 2.13 K/mm3 (0.84-5.20); LYMPHOCYTES PERCENT AUTO 12 % (21-46); MONOCYTES PERCENT AUTO 7 % (4-13); Mean Corpuscular HGB 28.6 pg (26.0-34.0); Mean Corpuscular HGB Conc 30.5 g/dL (31.5-36.5); Mean Corpuscular Volume 94 fL (80-100); Mean Platelet Volume 9.9 fL (9.1-12.4); NEUTROPHILS ABSOLUTE AUTO 14.04 K/mm3 (1.96-9.15); NEUTROPHILS PERCENT AUTO 79 % (41-73); NRBC ABSOLUTE 0.02 K/mm3 (0.00-0.02); NRBC Auto 0.1 /100 WBC (0.0-0.2); Platelet Count 328 K/mm3 (150-400); RDW Coefficient Variation 17.2 % (11.7-14.2); RDW Standard Deviation 58.1 fL (35.1-46.3); Red Blood Cell Count 4.33 M/mm3 (4.30-5.90); White Blood Cell Count 17.68 K/mm3 (4.00-11.30)
[2021-11-27 05:01] LABS: Albumin, Blood 1.9 g/dL (3.4-5.0); Anion Gap 9 mmol/L (6-16); Blood Urea Nitrogen 70 mg/dL (8-24); CO2, Blood 19 mmol/L (21-32); Chloride, Blood 105 mmol/L (98-108); Creatinine, Blood 1.75 mg/dL (0.60-1.20); Glomerular Filtration Rate 39 (60-); Glucose, Blood 124 mg/dL (70-99); Potassium, Blood 5.3 mmol/L (3.5-5.5); Sodium, Blood 133 mmol/L (136-145); Vancomycin, Random 17.6 ug/mL
[2021-11-27 05:21] LABS: Source, Urine Clean Catch
[2021-11-27 05:38] LABS: Blood, Urine 4+ (Neg); Glucose Qualitative, Urine Neg (Neg); Ketones, Urine Neg (Neg); Leukocyte Esterase, Urine 1+ (Neg); Nitrite, Urine Neg (Neg); Protein, Urine 3+ (Neg); Specific Gravity, Urine 1.025 (1.003-1.022); Urobilinogen, Urine 1+ (Normal)
[2021-11-27 05:56] LABS: Appearance, Urine Hazy (Clear); Bilirubin, Urine 1+ (Neg); Color, Urine Yellow (P-Yellow)
[2021-11-27 05:57] LABS: Bacteria Few /hpf; Hyaline Casts 0-2 /lpf (0-2); Squamous Epithelial Cells Few /hpf (Few); Yeast/Fungi Urine Few /hpf
[2021-11-27 13:08] LABS: ATYPICAL PANCA <1:20 titer (Neg:<1:20); CYTOPLASMIC (C-ANCA) <1:20 titer (Neg:<1:20); PERINUCLEAR (P-ANCA) <1:20 titer (Neg:<1:20)
--- NOTE | 2021-11-27 18:18 | NUR ---
PATIENT ALERT. RESTING COMFORTABLY IN BED. PATIENT REPORTS PAIN, MEDICATED PER EMR.PT ON TELE, AFIB, HR BETWEEN 109-115. RESTARTED ABX. STARTED ON PREDNISONE FOR PETECHIAE. CALL LIGHT PLACED WITHIN REACH.
--- NOTE | 2021-11-28 04:49 | NUR ---
PT IS SLEEPING THIS MORNING. PT IS ALERT AND ORIENTED X 2-3, CONFUSION SEEMED TO INCREASE TODAY, TELE- AFIB 110-115'S TONIGHT, PT ON RA WITH NO C/O SOB, PT DID NOT HAVE A BM TONIGHT. WHILE DEALING WITH ANOTHER PT, OTHER RN WENT IN TO DEAL WITH PUMP BEEPING. RN NOTIFIED ME THE PT WAS A BIT DIAPHORETIC, TOOK VITALS AND EVERYTHING WAS STABLE, PT AFEBRILE. WILL CONTINUE TO MONITOR. PT CALL LIGHT AND BELONGINGS WITHIN REACH.
[2021-11-28 05:05] LABS: BASOPHILS ABSOLUTE AUTO 0.02 K/mm3 (0.00-0.23); BASOPHILS PERCENT AUTO 0 % (0-2); EOSINOPHILS PERCENT AUTO 0 % (0-6); Hematocrit 43.2 % (37.0-53.0); Hemoglobin 13.1 g/dL (13.5-17.5); IMMATURE GRAN ABSOLUTE AUTO 0.11 K/mm3 (0.00-0.10); IMMATURE GRAN PERCENT AUTO 1 % (0-1); LYMPHOCYTES ABSOLUTE AUTO 1.07 K/mm3 (0.84-5.20); LYMPHOCYTES PERCENT AUTO 6 % (21-46); MONOCYTES ABSOLUTE AUTO 0.57 K/mm3 (0.16-1.47); MONOCYTES PERCENT AUTO 3 % (4-13); Mean Corpuscular HGB 28.3 pg (26.0-34.0); Mean Corpuscular HGB Conc 30.3 g/dL (31.5-36.5); Mean Corpuscular Volume 93 fL (80-100); Mean Platelet Volume 10.2 fL (9.1-12.4); NEUTROPHILS ABSOLUTE AUTO 15.02 K/mm3 (1.96-9.15); NEUTROPHILS PERCENT AUTO 89 % (41-73); NRBC ABSOLUTE 0.03 K/mm3 (0.00-0.02); NRBC Auto 0.2 /100 WBC (0.0-0.2); Platelet Count 325 K/mm3 (150-400); RDW Coefficient Variation 17.3 % (11.7-14.2); RDW Standard Deviation 57.9 fL (35.1-46.3); Red Blood Cell Count 4.63 M/mm3 (4.30-5.90); White Blood Cell Count 16.79 K/mm3 (4.00-11.30)
[2021-11-28 05:45] LABS: Anion Gap 10 mmol/L (6-16); Blood Urea Nitrogen 75 mg/dL (8-24); Bun/Creatinine Ratio 38.3 (12.0-20.0); CO2, Blood 17 mmol/L (21-32); Chloride, Blood 107 mmol/L (98-108); Creatinine, Blood 1.96 mg/dL (0.60-1.20); Glomerular Filtration Rate 34 (60-); Glucose, Blood 113 mg/dL (70-99); Phosphorus, Blood 5.7 mg/dL (2.5-4.9); Sodium, Blood 134 mmol/L (136-145); Vancomycin, Random 16.8 ug/mL
[2021-11-28 05:48] LABS: Potassium, Blood 6.1 mmol/L (3.5-5.5)
[2021-11-28 14:33] LABS: Source, Urine Foley catheter
[2021-11-28 14:39] LABS: Blood, Urine 3+ (Neg); Glucose Qualitative, Urine Neg (Neg); Ketones, Urine 1+ (Neg); Leukocyte Esterase, Urine 1+ (Neg); Nitrite, Urine Neg (Neg); Protein, Urine 3+ (Neg); Specific Gravity, Urine 1.025 (1.003-1.022); Urobilinogen, Urine NORM (Normal)
[2021-11-28 14:46] LABS: Appearance, Urine Hazy (Clear); Bilirubin, Urine 1+ (Neg); Color, Urine Yellow (P-Yellow)
[2021-11-28 14:47] LABS: Bacteria Mod /hpf; Squamous Epithelial Cells Mod /hpf (Few)
[2021-11-28 14:48] LABS: Amorphous Light (0-Heavy); Mucus Light (0-Heavy)
--- NOTE | 2021-11-28 16:05 | NUR ---
THIS NURSE JUST NOTIFIED BY POWERGLIDE TEAM THAT PATIENT'S VEINS ARE TOO SMALL FOR A POWERGLIDE TO BE PLACED.
--- NOTE | 2021-11-28 16:44 | NUR ---
PATIENT'S SON IN LAW NIDIA IS ASKING TAX COMPLIANCE MANAGER TO CALL HIM REGARDING [place]. NIDIA: [phone]
--- NOTE | 2021-11-28 17:40 | NUR ---
SHIFT SUMMARY PT AXO TO SELF AND PLACE THIS MORNING BUT IS SLEEPING THOUGHOUT THE SHIFT AND WHEN HE DOES WAKE UP, HES CONFUSED AND SAYS HE "DOESNT FEEL GOOD." DR MAYES CONSULTED, SEE ORDERS AND EMAR. IV PATENT AND INFUSING D5W WITH BICARB PER EMAR. DRESSING INTACT TO R BKA. PT COMPLAINED OF PAIN BUT PAIN MEDICATION HELD FOR SEDATION. PT SLEEPING WELL DESPITE STATED PAIN LEVEL. VSS. CRITICAL POTASSIUM, DR MAYES AWARE, SEE CRITICAL VALUE NOTIFICATION AND ORDERS. BED IN LOW POSITION, CALL LIGHT WITHIN REACH. BED ALARM ON.
--- NOTE | 2021-11-28 21:20 | NUR ---
NURSE NOTE: GERBER KHANNA NOTIFIED/UPDATED PT POTASSIUM CURRENTLY 5.9 (PREVIOUS POTASSIUM 6.7) NO INTERVENTIONS AT THIS TIME. CONTINUE WITH PLAN TO OBTAIN LABS IN AM TO CHECK POTASSIUM AND MONITOR URINARY OUTPUT POST ADMINISTRATION BUMEX.
[2021-11-29 05:16] LABS: Hematocrit 37.3 % (37.0-53.0); Hemoglobin 11.7 g/dL (13.5-17.5); Mean Corpuscular HGB 28.5 pg (26.0-34.0); Mean Corpuscular HGB Conc 31.4 g/dL (31.5-36.5); Mean Corpuscular Volume 91 fL (80-100); Mean Platelet Volume 10.2 fL (9.1-12.4); NRBC ABSOLUTE 0.02 K/mm3 (0.00-0.02); NRBC Auto 0.1 /100 WBC (0.0-0.2); Platelet Count 279 K/mm3 (150-400); RDW Coefficient Variation 17.6 % (11.7-14.2); RDW Standard Deviation 56.5 fL (35.1-46.3); White Blood Cell Count 21.44 K/mm3 (4.00-11.30)
--- NOTE | 2021-11-29 05:18 | NUR ---
SHIFT SUMMARY: CONTINUED CONFUSION AND VISUAL HALLUCINATIONS- MD NOTIFIED. OBSERVED DIFFICULTY FOR PATIENT TO TAKE PO MEDICATIONS DUE TO CONFUSION AND DIFFICULTY FOLLOWING COMMANDS- DIET CHANGE TO NPO- SPEECH EVAL ORDERED. HOLD PO MEDS TILL SPEECH EVALUATION COMPLETED INCONTINENT OF STOOL- JAMES DRAINING BUT SEEMS POSITIONAL, INCREASED OUTPUT WHEN PT LAYING ON LEFT SIDE. PT REPORTING GENERALIZED PAIN- PRN IV FENTANYL ORDERED UNTIL ABLE TO TAKE PO MEDICATIONS. TELEMETRY- AFIB THROUGHOUT SHIFT, BECAME TACHYCARDIC IN THE 130's. MD GAVE ORDER FOR IV LOPRESSOR ONCE.
[2021-11-29 05:49] LABS: Prostate Specific Antigen 0.949 ng/mL (0.000-4.000)
[2021-11-29 05:55] LABS: Alanine Aminotransfer (ALT/SGP 773 U/L (12-78); Albumin, Blood 1.9 g/dL (3.4-5.0); Albumin/Globulin Ratio 0.5 (0.8-1.8); Alk Phos 400 U/L (50-136); Anion Gap 9 mmol/L (6-16); Aspartate Aminotrans (AST/SGOT 1127 U/L (12-37); Bilirubin, Total 1.2 mg/dL (0.1-1.0); Blood Urea Nitrogen 82 mg/dL (8-24); Bun/Creatinine Ratio 36.4 (12.0-20.0); CO2, Blood 21 mmol/L (21-32); Calcium, Blood 7.8 mg/dL (8.5-10.1); Chloride, Blood 104 mmol/L (98-108); Creatinine, Blood 2.25 mg/dL (0.60-1.20); Globulin, Blood 4.2 g/dL (2.2-4.0); Glomerular Filtration Rate 29 (60-); Glucose, Blood 194 mg/dL (70-99); Potassium, Blood 5.1 mmol/L (3.5-5.5); Sodium, Blood 134 mmol/L (136-145); Total Protein, Blood 6.1 g/dL (6.4-8.2); Vancomycin, Random 18.8 ug/mL
--- NOTE | 2021-11-29 19:04 | NUR ---
SHIFT SUMMARY THE PATIENT IS A/O X3, SELF PLACE AND YEAR, PLEASANT AND MOSTLY COOPERATIVE WITH CARE. THE PATIENT REMAINS CONFUSED AT TIMES. PATIENT MEDICATED X2 FOR PAIN THIS SHIFT. POOR PO INTAKE. JAMES DRAINING YELLOW URINE TO GRAVITY. MEDS CRUSHED IN APPLESAUCE. BUMEX DELAYED THIS EVENING. 1 TIME MIDODRINE GIVEN FOR PRESSURES. TELE: AFIB RANGING 100-130. NOT SUSTAINING MORE THAN 120. CALL LIGHT WITHIN REACH. BED IN LOWEST POSITION.
--- NOTE | 2021-11-30 00:04 | NUR ---
NURSE NOTE: SAM KHANNA NOTIFIED OF PATIENTS CONTINUED CONFUSION AND VISUAL HALLUCINATIONS. UPDATED THAT PAITIENTS VITALS HAVE BEEN STABLE OTHER THAN CARDIAC RHYTHM AFIB 110'S-130'S. GAVE ORDER FOR AMMONIA LEVEL TO BE DRAWN NOW.
[2021-11-30 01:08] LABS: Vancomycin, Random 16.2 ug/mL
--- NOTE | 2021-11-30 04:46 | NUR ---
SHIFT SUMMARY: PT REMAINS CONFUSED A/O X2- INCREASED HALLUCINATIONS DURING THE NIGHT (MD NOTIFIED), PT REPORTING SEEING A CAT ON HIS BED. PT HAD 2 LARGE INCONTINENT BOWEL MOVEMENTS DURING THIS SHIFT, JAMES CATHETER GAVE ADEQUATE OUTPUT. VITALS STABLE- CARDIAC TELEMETRY AFIB WITH RATE AVERAGING BETWEEN 98-110 OCCASSIONALLY UP TO 120'S YET NOT SUSTAINED. RESTED THROUGHOUT THE NIGHT, NO REPORTED PAIN OTHER THAN OCCASSIONAL ACHE WITH MOVEMENT OF RIGHT ARM.
[2021-11-30 07:24] LABS: Albumin, Blood 1.8 g/dL (3.4-5.0); Anion Gap 6 mmol/L (6-16); Blood Urea Nitrogen 91 mg/dL (8-24); Bun/Creatinine Ratio 41.6 (12.0-20.0); CO2, Blood 25 mmol/L (21-32); Calcium, Blood 7.4 mg/dL (8.5-10.1); Chloride, Blood 106 mmol/L (98-108); Creatinine, Blood 2.19 mg/dL (0.60-1.20); Glomerular Filtration Rate 30 (60-); Glucose, Blood 82 mg/dL (70-99); Magnesium, Blood 2.6 mg/dL (1.6-2.4); Phosphorus, Blood 5.2 mg/dL (2.5-4.9); Potassium, Blood 4.9 mmol/L (3.5-5.5); Sodium, Blood 137 mmol/L (136-145)
[2021-11-30 11:10] LABS: Performing Lab CELLNETIX; Test Name DIRECT IMMUNO
[2021-11-30 11:13] LABS: Result SEE SEPARATE REPORT
--- NOTE | 2021-11-30 19:18 | NUR ---
SHIFT SUMMARY THE PATIENT IS ALERT AND ORIENTED X2, PLEASANT AND COOPERATIVE WITH CARE. THE PATIENT'S MENTATION HAS SINCE GOTTEN BETTER. NO HALLUCINATIONS THIS SHIFT. TELE DC'D. PATIENT'S HR HAS IMPORVED. BUMEX CHANGED TO BID. PATIENT IS ON PUREE DIET NOW. JAMES PATENT AND DRAINING TO GRAVITY. NO ACUTE CHANGES. CALL LIGHT WITHIN REACH. BED ALARM ON.
[2021-12-01 05:27] LABS: Hematocrit 34.5 % (37.0-53.0); Hemoglobin 11.1 g/dL (13.5-17.5)
--- NOTE | 2021-12-01 05:52 | NUR ---
SHIFT SUMMARY PT AWAKE OFF AND ON THROUGHOUT THE NIGHT. MILDLY CONFUSED. SOME HALLUCINATING AT TIMES. PULLING OFF HIS GOWN AND HIS DRESSING TO HIS RLE. RLE INCISION SITE REDRESSED. LATRICIA REMAIN IN PLACE. PT HAS ODD ABRASIONS SCATTERED THROUGHOUT. PT INCONTINENT OF STOOL, SOFT FORMED STOOL FREQUENTLY. DRESSING CHANGED TO RLE STUMP WITH ABD PAD, KERLEX, AND TROY WRAP. JAMES CATH PT AND DRAINING. GENERALIZED EDEMA THROUGHOUT, SCROTUM SWOLLEN. NOTICED ORDER FOR 24 HOUR URINE THAT HAD BEEN STARTED. STARTED THIS EVENING AT 1930. OTHERWISE, NO ACUTE CHANGES THIS EVENING.
[2021-12-01 05:54] LABS: Albumin, Blood 1.8 g/dL (3.4-5.0); Anion Gap 8 mmol/L (6-16); Blood Urea Nitrogen 90 mg/dL (8-24); Bun/Creatinine Ratio 43.5 (12.0-20.0); CO2, Blood 26 mmol/L (21-32); Calcium, Blood 7.6 mg/dL (8.5-10.1); Chloride, Blood 103 mmol/L (98-108); Creatinine, Blood 2.07 mg/dL (0.60-1.20); Glomerular Filtration Rate 32 (60-); Glucose, Blood 109 mg/dL (70-99); Magnesium, Blood 2.5 mg/dL (1.6-2.4); Phosphorus, Blood 4.9 mg/dL (2.5-4.9); Sodium, Blood 137 mmol/L (136-145)
--- NOTE | 2021-12-01 17:18 | NUR ---
SHIFT SUMMARY PATIENT DENIES PAIN, NAUSEA, AND SHORTNESS OF BREATH. PATIENT A&O X2 THIS MORNING, BUT THE DAY PROGRESSED, PATIENT BECAME VERY CONFUSED. PATIENT WAS CALLING OUT THIS AFTERNOON, EDUCATED PATIENT DIRECTOR OF SALES AND MARKETING LIGHT USE, PATIENT CONTINUED TO CALL OUT. PATIENT A&O TO SELF THIS AFTERNOON. SPEECH THERAPY WORKED WITH PATIENT THIS MORNING. JAMES IS PATENT AND DRAINING TO GRAVITY. 24HR URINE WILL BE [id number] AT 1935. DRESSING CHANGED ON R BKA. PATIENT IS EATING AND DRINKING WELL. PATIENT IS TOLERATING PUREE DIET. PATIENT IS PLEASANT AND COOPERATIVE WITH CARE.
[2021-12-01 23:35] LABS: Protein, Urine Quantitative 20.1 mg/dL (0.0-11.9)
--- NOTE | 2021-12-02 04:27 | NUR ---
SHIFT SUMMARY PT A/O TO PERSON, AND YEAR, CONTINUES TO HAVE HALLUCINATIONS. HE STATES THAT HE WAS SEEING SOMEONE IN HIS ROOM ONCE AND HE ALSO TALKS TO HIMSELF FREQUENTLY, HR IRREG, RESP UNLABORED AND ON RA, JAMES CATHETER PATENT AND DRAINING YELLOW URINE, PT REMOVED DRSG FROM RT. BKA AND A SCANT AMT OF SEROSANGUINOUS DRAINAGE PRESENT WITH BLISTERS AND LATRICIA INTACT AT INCISION, CLEANED WOUND WITH WOUND CLEANSER AND APPLIED A NEW ABD PAD AND KERLIX AND REWRAPPED WITH TROY BANDAGE. TURNED AND REPOSITION Q 2 HRS,NO DIFFICULTY NOTED WITH SWALLOWING MEDS OR LIQUIDS THIS SHIFT, NO ACUTE DISTRES THIS SHIFT.
[2021-12-02 05:22] LABS: Hematocrit 36.3 % (37.0-53.0); Hemoglobin 11.6 g/dL (13.5-17.5)
[2021-12-02 05:56] LABS: Albumin, Blood 1.9 g/dL (3.4-5.0); Anion Gap 9 mmol/L (6-16); Blood Urea Nitrogen 89 mg/dL (8-24); Bun/Creatinine Ratio 47.6 (12.0-20.0); CO2, Blood 27 mmol/L (21-32); Calcium, Blood 7.8 mg/dL (8.5-10.1); Chloride, Blood 100 mmol/L (98-108); Creatinine, Blood 1.87 mg/dL (0.60-1.20); Glomerular Filtration Rate 36 (60-); Glucose, Blood 150 mg/dL (70-99); Magnesium, Blood 2.5 mg/dL (1.6-2.4); Potassium, Blood 4.2 mmol/L (3.5-5.5); Sodium, Blood 136 mmol/L (136-145)
--- NOTE | 2021-12-02 18:06 | NUR ---
SHIFT SUMMARY PT HAS BECOME INCREASINGLY CONFUSED OVER THE SHIFT. YELLING OUT, HALLUCINATING, THROWING THINGS ON THE FLOOR AND TRYING TO PULL OF CLOTHES AND CATHETER, HE WAS ABLE TO WORK WITH PT A LITTLE BIT TODAY HE AGREED, HE ALSO SAT UP IN THE CHAIR FOR LUNCH TODAY. FULL BED BATH, SHEET CHANGE, AND STUMNP WOUND CARE DONE ON HIS RIGHT KNEE. STILL WAITING FOR PLACEMENT. WILL CONTINUE TO MONITOR.
[2021-12-03 05:12] LABS: Hematocrit 37.1 % (37.0-53.0); Hemoglobin 11.6 g/dL (13.5-17.5)
[2021-12-03 05:36] LABS: Albumin, Blood 2.2 g/dL (3.4-5.0); Anion Gap 8 mmol/L (6-16); Blood Urea Nitrogen 83 mg/dL (8-24); CO2, Blood 28 mmol/L (21-32); Calcium, Blood 8.3 mg/dL (8.5-10.1); Chloride, Blood 100 mmol/L (98-108); Creatinine, Blood 1.73 mg/dL (0.60-1.20); Glomerular Filtration Rate 39 (60-); Glucose, Blood 109 mg/dL (70-99); Magnesium, Blood 2.3 mg/dL (1.6-2.4); Phosphorus, Blood 4.3 mg/dL (2.5-4.9); Potassium, Blood 3.2 mmol/L (3.5-5.5); Sodium, Blood 136 mmol/L (136-145)
--- NOTE | 2021-12-03 08:30 | NUR ---
SHIFT SUMMARY PT A/O X2, CONFUSED BUT COOPERATIVE, BS AT HS WAS [address] SULLIVAN WAS MADE AWARE AND RECIEVED ORDER TO HOLD HS LANTUS, PT WAS SWEATING THIS AM AND HE AROUSED EASILY TO TOUCH AND BS WAS CHECKED AND HE WAS 73, HE DRANK TWO CUPS OF CRANBERRY JUICE AND WAS ASYMPTOMATIC, TURNED AND REPOSITIONED Q2 HRS, PT PULLED DRSG OFF OF RT. BKA TWICE THIS SHIFT AND INCISION WAS CLEANED AND REDRESSED AND PT TOLERATED WELL.
--- NOTE | 2021-12-03 18:07 | NUR ---
PATIENT DISPLAYING CONFUSED THINKING. COMPLAINTS OF PAIN IN STUMP. RIGHT STUMP CLEANED AND CHANGED THIS SHIFT. THERE IS A SMALL DIME SIZE BLISTER ON THAT KNEE. PATIENT HAS A JAMES THAT IS DRAINING WELL. WHEN HE IS HAVING CONFUSION, HE ATTEMPTS TO PICK AT THE CATHETER. HE ASKED THIS TILE LAYER SUPERVISOR FOR "A KNIFE TO CUT THE ROPE WITH" THIS AM. SCROTAL AREA IS STILL SWOLLEN. PATIENT HAS BEEN USING TYLENOL FOR PAIN SINCE AN ORDER WAS OBTAINED THIS AM. TYLENOL IS EFFECTIVE.
[2021-12-04 05:26] LABS: Hematocrit 38.6 % (37.0-53.0); Hemoglobin 12.3 g/dL (13.5-17.5)
[2021-12-04 05:49] LABS: Anion Gap 9 mmol/L (6-16); Blood Urea Nitrogen 74 mg/dL (8-24); Bun/Creatinine Ratio 47.4 (12.0-20.0); CO2, Blood 29 mmol/L (21-32); Chloride, Blood 102 mmol/L (98-108); Creatinine, Blood 1.56 mg/dL (0.60-1.20); Glomerular Filtration Rate 44 (60-); Glucose, Blood 65 mg/dL (70-99); Magnesium, Blood 2.1 mg/dL (1.6-2.4); Phosphorus, Blood 3.6 mg/dL (2.5-4.9); Sodium, Blood 140 mmol/L (136-145)
[2021-12-04 08:08] LABS: ANTIGLOMERULAR BM AB 4 units (0-20)
[2021-12-04 15:10] LABS: A/G RATIO 0.7 (0.7-1.7); ALBUMIN 2.1 g/dL (2.9-4.4); ALPHA-1-GLOBULIN 0.3 g/dL (0.0-0.4); ALPHA-2-GLOBULIN 0.6 g/dL (0.4-1.0); BETA GLOBULIN 0.7 g/dL (0.7-1.3); GAMMA GLOBULIN 1.7 g/dL (0.4-1.8); GLOBULIN, TOTAL 3.4 g/dL (2.2-3.9); IMMUNOGLOBULIN A, QN, SERUM 353 mg/dL (61-437); IMMUNOGLOBULIN G, QN, SERUM 1364 mg/dL (603-1613); IMMUNOGLOBULIN M, QN, SERUM 412 mg/dL (20-172); M-SPIKE Not Observed g/dL (Not Observed); PROTEIN, TOTAL, SERUM 5.5 g/dL (6.0-8.5)
--- NOTE | 2021-12-04 15:52 | NUR ---
PATIENT WAS LETHARGIC DURING THE MORNING, SLEEPING MOST OF TIME BEFORE AND AFTER BREAKFAST. HIS BS WAS 60 AT 7AM. HE WAS PROVIDED APPLESAUCE AND OJ. BS THEN INCREASED TO 96. PATIENT DID'T HAVE MUCH OF AN APPETITE TODAY. HE STATES THAT HE IS FEELING PRETTY DEPRESSED. I ASKED HIM ABOUT THE EFFECTIVENESS OF HIS CYMBALTA AND HE SAID, "I NEED SOMETHING MORE". WE TALKED ABOUT HOW THE HOSPITALIZATION WAS TEMPORARY AND HE WOULDN'T BE HERE FOREVER. MOOD IMPORVED SOMEWHAT. JAMES WAS REPLACED TODAY AFTER THE FIRST HAD BEEN LEAKING. SOME SCATTERED CRACKLES IN THE LEEFT LUNG HEARD IN THE AM.
--- NOTE | 2021-12-04 17:55 | NUR ---
PATIENT VERY MUCH DISLIKES PUREE DIET. HE WOULD RATHER NOT EAT. FOR DINNER, HE TOOK ONE BITE OF BROCCLI, ONE BITE OF YOGURT AND A FEW SIPS OF TOMATO SOUP. HE IS ON INSULIN A DIABETIC, BUT THEN DECIDES HE ISN'T WILLING TO EAT. WONDERING IF HE WOULD BENEFIT FROM ENSURE OR SUPPLEMENT.
--- NOTE | 2021-12-04 18:58 | NUR ---
7pM SA02 RUNNING AT 95% RA, PATIENT HAS MAINTAINED WTIHOUT THE USE OF OXYGEN SINCE THE THORACENTESIS THIS AM.
[2021-12-05 05:48] LABS: Hematocrit 41.4 % (37.0-53.0); Hemoglobin 13.1 g/dL (13.5-17.5)
[2021-12-05 06:08] LABS: Albumin, Blood 2.1 g/dL (3.4-5.0); Anion Gap 9 mmol/L (6-16); Blood Urea Nitrogen 63 mg/dL (8-24); Bun/Creatinine Ratio 44.4 (12.0-20.0); CO2, Blood 32 mmol/L (21-32); Calcium, Blood 8.1 mg/dL (8.5-10.1); Chloride, Blood 102 mmol/L (98-108); Creatinine, Blood 1.42 mg/dL (0.60-1.20); Glomerular Filtration Rate 49 (60-); Glucose, Blood 73 mg/dL (70-99); Phosphorus, Blood 3.2 mg/dL (2.5-4.9); Potassium, Blood 3.3 mmol/L (3.5-5.5); Sodium, Blood 143 mmol/L (136-145)
--- NOTE | 2021-12-05 09:41 | NUR ---
CONTACTED CONFIRMED CLINICAL JUDGEMENT, HELD BOTH LONG AND SHORT ACTING INSULIN DUE TO LOW BLOOD GLUCOSE, PLANS TO ADJUST DOSE.
--- NOTE | 2021-12-05 12:28 | NUR ---
CONTACTED LOW BG, APPLE JUICE AND LUNCH PROVIDED
[2021-12-05 13:09] LABS: M-SPIKE, % Not Observed % (Not Observed); PROTEIN,TOTAL,URINE 12.4 mg/dL (Not Estab.)
[2021-12-05 13:09] LABS: ANA DIRECT Negative (Negative); ANTIMYELOPEROXIDASE (MPO) ABS <9.0 U/mL (0.0-9.0); ANTIPROTEINASE 3 (PR-3) ABS <3.5 U/mL (0.0-3.5); ATYPICAL PANCA <1:20 titer (Neg:<1:20); CYTOPLASMIC (C-ANCA) <1:20 titer (Neg:<1:20); PERINUCLEAR (P-ANCA) <1:20 titer (Neg:<1:20)
--- NOTE | 2021-12-05 15:01 | NUR ---
Pt. is in bed. Briefly displays evidence of confusion think I am a doctor. Pt. welcomed my visit. Pt. is quite unsettled about the nature of his condition. Listen empathetically and seek to normalize the pt. experience. Spoke to the role he should play in his recovery. Pt. displays evidence of understanding and agreement. Prayed for pt. Pt. wanted to be moved into a chair. Communicated the need to a floor nurse. Pt. verbalized gratitude for the pastoral prayer and the spiritual care visit.
--- NOTE | 2021-12-05 16:48 | NUR ---
SHIFT SUMMARY PT A&O X4 AND IN PLEASENT MOOD T/O SHIFT. PT TOLERATING PO INTAKE. PT DENIES PAIN T/O SHIFT. JAMES DRAINING TO GRAVITY. PT HAD A HARD TIME GETTING PILLS DOWN THIS MORNING, TRYED W/ APPLESAUCE WELL. PT ATTEMPTED POCKETING PILLS IN CHEEK. BLOOD GLUCOSE LOW T/O SHIFT, NOTIFIED AND INSULIN DOSE MODIFIED. VSS. CALL LIGHT W/IN REACH. AWAITING PLACEMENT FOR D/C @ THIS TIME.
--- NOTE | 2021-12-06 04:45 | NUR ---
AIRLINE PILOT SUMMARY WAS ASLEEP AT HS WHEN NURSE BROUGHT HS MEDS. AWAKENED AND TOOK MOST OF THE MEDS, BUT REFUSED INSULIN AND BUMEX, STATED HE HAD ENOUGH MEDS AND REFUSED TO TAKE ANYMORE. JAMES DRAINING. ABLE TO REPOSITION SELF IN BED FOR COMFORT. HAS BEEN RESTING QUIETLY WITH NO S/S ACUTE DISTRESS. CALL LIGHT IN REACH
[2021-12-06 05:36] LABS: Hematocrit 40.4 % (37.0-53.0); Hemoglobin 12.7 g/dL (13.5-17.5)
[2021-12-06 06:18] LABS: Albumin, Blood 2.1 g/dL (3.4-5.0); Anion Gap 8 mmol/L (6-16); Blood Urea Nitrogen 56 mg/dL (8-24); Bun/Creatinine Ratio 42.4 (12.0-20.0); CO2, Blood 32 mmol/L (21-32); Calcium, Blood 8.1 mg/dL (8.5-10.1); Chloride, Blood 101 mmol/L (98-108); Creatinine, Blood 1.32 mg/dL (0.60-1.20); Glomerular Filtration Rate 54 (60-); Glucose, Blood 121 mg/dL (70-99); Magnesium, Blood 1.9 mg/dL (1.6-2.4); Phosphorus, Blood 3.3 mg/dL (2.5-4.9); Potassium, Blood 3.4 mmol/L (3.5-5.5); Sodium, Blood 141 mmol/L (136-145)
--- NOTE | 2021-12-06 13:15 | NUR ---
WOUND ASSESSMENT: WITH SALVATORE BOOKER FROM [facility]. R BKA INCISION IS APPROOXMIATED WITH LATRICIA, BUT HAS ~ 3 X 5 AREA OF PURPLE TISSUE WITH BOGGY FEEL ON THE SUPERIOR ASPECT OF INCISION. SURGERY WAS PERFORMED ON 11/18/[address] Charles SALCIDO. PT WAS TO FOLLOW UP IN CLINIC BUT MISSED APPOINTMENT HE IS STILL IN HOSPITAL. CALLED [facility] TO LEAVE MESSAGE WITH DR. SALCIDO TO SEE IF SHE PLANNED TO FOLLOW UP ON THIS PATIENT; ALSO LEFT MESSAGE ON PROVIDER'S CELL PHONE. WILL ALSO ASK FOR WOUND CARE ORDERS. WILL CONTINUE TO MONITOR.
--- NOTE | 2021-12-06 18:40 | NUR ---
SHIFT SUMMARY: PT CONFUSED MOST OF THE SHIFT. REFUSED SOME MEDICATIONS. CONSTANTLY ASKS FOR WATER TO DRINK, NEEDS FREQUENT REORIENTATION ABOUT FLUID RESTRICTION. JAMES DRAINING CONCENTRATED YELLOW URINE. PER PREVIOUS NOTE, LEFT MESSAGE FOR DR. SALCIDO WHO HAD PERFORMED R BKA TO COME EVALUATE HIS SURGICAL INCISION. PHOTO TAKEN AND PLACED IN CHART. TOLERATING PO INTAKE. INCONTINENT OF BOWEL, HAD BM TODAY. GAVE TYLENOL FOR C/O GENERALIZED DISCOMFORT WITH RELIEF. AWAITING PLACEMENT.
[2021-12-07 05:18] LABS: Hematocrit 43.9 % (37.0-53.0); Hemoglobin 13.2 g/dL (13.5-17.5)
[2021-12-07 05:35] LABS: Albumin, Blood 2.3 g/dL (3.4-5.0); Anion Gap 7 mmol/L (6-16); Blood Urea Nitrogen 67 mg/dL (8-24); Bun/Creatinine Ratio 45.9 (12.0-20.0); CO2, Blood 33 mmol/L (21-32); Calcium, Blood 8.3 mg/dL (8.5-10.1); Chloride, Blood 99 mmol/L (98-108); Creatinine, Blood 1.46 mg/dL (0.60-1.20); Glomerular Filtration Rate 48 (60-); Glucose, Blood 235 mg/dL (70-99); Magnesium, Blood 2.1 mg/dL (1.6-2.4); Phosphorus, Blood 3.6 mg/dL (2.5-4.9); Potassium, Blood 3.7 mmol/L (3.5-5.5); Sodium, Blood 139 mmol/L (136-145)
--- NOTE | 2021-12-07 06:26 | NUR ---
PM SHIFT SUMMARY PATIENT HERE FOR RIGHT BKA DUE TO HAVING GANGRENE AND CELLULITIS EXTENDING INTO HIS EXTREMETIY FROM FOOT. HE IS INCONTINENT OF BOWEL AND HAS A JAMES IN FOR URINE RETENTION. HE IS ON A ONE LITER FLUID RESTRICTION, WHICH WAS SURPASSED BEFORE MY SHIFT EVEN BEGAN. HE WAS GIVEN SPONGE STICKS TO HELP KEEP HIS MOUTH AND THROAT MOIST. [facility]ASONS I WAS UNABLE TO FIND IN NOTES. CM IS WORKING ON GETTING HIM PLACEMENT AT THIS TIME. HE HAD NO COMPLAINTS DURING THE SHIFT.
--- NOTE | 2021-12-07 15:41 | NUR ---
FOLLOW UP ON WOUND ASSESSMENT: S/P R [place] ON 11/18/21, HAS BEEN HOSPITALIZED SINCE SO UNABLE TO KEEP OUTPT F/U APPOINTMENT. PHOTO IN CHART. CALLED [facility] TO FOLLOW UP ON MESSAGE LEFT FOR DR. SALCIDO YESTERDAY AT THE OFFICE AND MESSAGE LEFT ON PROVIDER'S CELL PHONE. WAS TOLD TODAY THAT DR. SALCIDO IS ON VACATION ALL THIS WEEK. SPOKE TO DR. WALTON VIA HIS CELL PHONE AT 1540 AND ASKED HIM TO SEE THIS PT AND EVALUATE HIS WOUND. PROVIDER STATED HE WOULD SEE PT EITHER LATER THIS EVENING OR TOMORROW.
--- NOTE | 2021-12-07 17:21 | NUR ---
SHIFT SUMMARY: NO ACUTE EVENTS. INTERMITTENT CONFUSION AND SOMNOLENCE DURING THE DAY. NEEDS FREQUENT REINFORCEMENT ON RATIONALE FOR FLUID RESTRICTION. JAMES DRAINING CONCENTRATED YELLOW URINE; SKIN AT MEATUS IS REDDENED AND HAS DROPS OF BLOOD AT TIMES. POOR APPETITE, JUST WANTS WATER. MET WITH RN FROM [facility] TODAY. AWAITING PLACEMENT.
[2021-12-07 18:03] LABS: BASOPHILS PERCENT AUTO 0 % (0-2); EOSINOPHILS PERCENT AUTO 0 % (0-6); Hematocrit 40.7 % (37.0-53.0); Hemoglobin 12.5 g/dL (13.5-17.5); IMMATURE GRAN ABSOLUTE AUTO 0.06 K/mm3 (0.00-0.10); IMMATURE GRAN PERCENT AUTO 0 % (0-1); LYMPHOCYTES ABSOLUTE AUTO 0.95 K/mm3 (0.84-5.20); LYMPHOCYTES PERCENT AUTO 7 % (21-46); MONOCYTES PERCENT AUTO 6 % (4-13); Mean Corpuscular HGB 27.7 pg (26.0-34.0); Mean Corpuscular HGB Conc 30.7 g/dL (31.5-36.5); Mean Corpuscular Volume 90 fL (80-100); Mean Platelet Volume 10.9 fL (9.1-12.4); NEUTROPHILS ABSOLUTE AUTO 11.67 K/mm3 (1.96-9.15); NEUTROPHILS PERCENT AUTO 87 % (41-73); Platelet Count 211 K/mm3 (150-400); RDW Coefficient Variation 18.1 % (11.7-14.2); RDW Standard Deviation 59.2 fL (35.1-46.3); Red Blood Cell Count 4.52 M/mm3 (4.30-5.90); White Blood Cell Count 13.48 K/mm3 (4.00-11.30)
[2021-12-08 04:57] LABS: Hematocrit 40.4 % (37.0-53.0); Hemoglobin 12.4 g/dL (13.5-17.5)
[2021-12-08 05:19] LABS: Albumin, Blood 2.2 g/dL (3.4-5.0); Anion Gap 7 mmol/L (6-16); Blood Urea Nitrogen 67 mg/dL (8-24); CO2, Blood 34 mmol/L (21-32); Calcium, Blood 8.3 mg/dL (8.5-10.1); Chloride, Blood 98 mmol/L (98-108); Creatinine, Blood 1.49 mg/dL (0.60-1.20); Glomerular Filtration Rate 47 (60-); Glucose, Blood 189 mg/dL (70-99); Magnesium, Blood 1.9 mg/dL (1.6-2.4); Phosphorus, Blood 3.7 mg/dL (2.5-4.9); Potassium, Blood 3.8 mmol/L (3.5-5.5); Sodium, Blood 139 mmol/L (136-145)
--- NOTE | 2021-12-08 06:07 | NUR ---
PM SHIFT SUMMARY PATIENT HAD NO COMPLAINTS OF PAIN DURING SHIFT. HE DOES SEEM A BIT MORE CONFUSED TODAY THAN THE PREVIOUS SHIFT. AROUND 0100, HE AWOKE FROM WHAT I ASSUME WAS A DREAM, AND WAS QUITE CONFUSED TO WHERE HE WAS. THEN AROUND 0545, HE STARTED TALKING OUT LOUD TO SOMEONE. I ENTERED THE ROOM AND HE ASKED ME WHAT HOPPED ACROSS THE FLOOR. HE DID SLEEP A LOT MORE THIS SHIFT THAN THE PREVIOUS, SO PERHAPS HE IS JUST GETTING SO DEEP INTO SLEEP THAT HE IS HAVING QUITE A FEW DREAMS, FEELING THEY ARE REAL. DR. WALTON CAME BY AND REMOVED HIS LATRICIA. HE DC'ED THE STUMP STACK AND NOW WANTS HIS RIGHT BKA TO BE DRESSED ONLY WITH DRY DRESSINGS AND TROY BANDAGE. I MADE A NURSE NOTIFICATION ORDER FOR THIS WELL. JAMES DRAINING YELLOW URINE. CM IS LOOKING INTO SNF PLACEMENT.
--- NOTE | 2021-12-08 16:17 | NUR ---
SHIFT SUMMARY THE PATIENT IS ALERT AND ORIENTED X2, PLEASANT AND COOPERATIVE WITH CARE. THE PATIENT IS CONFUSED AT TIMES, BUT ABLE TO REDIRECT. THE PATIENT IS ON A 1200ML FLUID RESTRICTION BUT UNABLE TO UNDERSTAND WHY. THE PATIENT NEEDS REPETITIVE INSTRUCTION. THE PATIENT WAS UP TO THEIR CHAIR FOR LUNCH, BUT UNABLE TO WITHSTAND IT FOR LONG. THE PATIENT'S DRESSING WAS CHANGED THIS SHIFT. DR. WALTON CAME TO SEE THE PATIENT TODAY. MEDICATED FOR PAIN X1. REGULAR INSULIN GIVEN PER SLIDING SCALE FOR COVERAGE. JAMES DRAINING YELLOW URINE TO GRAVITY. VSS. NO ACUTE CHANGES. THIS NURSE WILL CONTINUE TO CARE FOR THE PATIENT UNTIL SHIFT REPORT IS GIVEN TO ONCOMING NURSE.
--- NOTE | 2021-12-09 05:05 | NUR ---
SHIFT SUMMARY: A/O X2 DISORIENTED TO TIME AND PLACE. NO COMPLAINTS OF PAIN THROUGHOUT SHIFT, DID COMPLAIN OF NAUSEA RELIEVED WITH ZOFRAN. PT RESTING WHEN ROUNDING. JAMES DRAINING, 2 BOWEL MOVEMENTS DURING THIS SHIFT. PT DOES REPORT "I DONT FEEL GOOD" YET UNABLE TO DESCRIBE THIS FEELING. REPORTS FEELING VERY TIRED. BED ALARM REMAINS ACTIVATED, CALL MENDOZA IN REACH, BELONGINGS IN REACH, BED IN LOW POSITION.
[2021-12-09 06:19] LABS: Hematocrit 42.5 % (37.0-53.0); Hemoglobin 12.9 g/dL (13.5-17.5)
[2021-12-09 06:37] LABS: Albumin, Blood 2.3 g/dL (3.4-5.0); Anion Gap 7 mmol/L (6-16); Blood Urea Nitrogen 85 mg/dL (8-24); Bun/Creatinine Ratio 54.8 (12.0-20.0); CO2, Blood 32 mmol/L (21-32); Calcium, Blood 8.2 mg/dL (8.5-10.1); Chloride, Blood 97 mmol/L (98-108); Creatinine, Blood 1.55 mg/dL (0.60-1.20); Glomerular Filtration Rate 45 (60-); Glucose, Blood 208 mg/dL (70-99); Magnesium, Blood 2.2 mg/dL (1.6-2.4); Potassium, Blood 4.3 mmol/L (3.5-5.5); Sodium, Blood 136 mmol/L (136-145)
--- NOTE | 2021-12-09 18:52 | NUR ---
SHIFT SUMMARY THE PATIENT IS ALERT AND ORIENTED X2, PLEASANT AND COOPERATIVE WITH CARE. THE PATIENT HAD A POOR PO INTAKE THIS SHIFT. JAMES DRAINING YELLOW URINE TO GRAVITY. MEDICATED X1 FOR PAIN. INSULIN GIVEN PER SLIDING SCALE X3. NO ACUTE CHANGES THIS SHIFT. CALL LIGHT WITHIN REACH.
--- NOTE | 2021-12-10 04:17 | NUR ---
NURSE NOTE/SHIFT SUMMARY: A/O X2 DISORIENTED TO TIME AND DATE. OCCASSIONAL CONFUSION, INCREASED DROWSINESS THIS SHIFT. PT REPORTS "I DONT FEEL WELL" WHEN ASKING TO DESCRIBE PT HAS DIFFICULTY EXPLAINING. LATER REPORTS "I JUST FEEL REALLY TIRED". JAMES IN PLACE DRAINING WELL, 1 LARGE BOWEL MOVEMENT THIS SHIFT. PT DECLINED REPOSITIONING SEVERAL TIMES REPORTING FEELING COMFORTABLE SUPINE. BED BATH GIVEN. BED ALARM ACTIVATED, BED IN LOW POSITION, CALL MENDOZA IN REACH, BELONGINGS IN REACH. CONTINUED EDUCATION PROVIDED FOR FLUID RESTRICTION.
--- NOTE | 2021-12-10 05:21 | NUR ---
NURSE NOTE- ABEBA KHANNA NOTIFIED OF DECREASED URINE OUTPUT APPROXIMATELY 400 ML URINE THROUGH SHIFT. PT CONTINUES TO REPORT FEELING VERY THIRSTY. ABEBA KHANNA GAVE TELEPHONE ORDER TO DISCONTINUE SCHEDULED BUMEX ORDER.
[2021-12-10 05:28] LABS: Hematocrit 40.8 % (37.0-53.0); Hemoglobin 12.9 g/dL (13.5-17.5)
[2021-12-10 05:51] LABS: Albumin, Blood 2.1 g/dL (3.4-5.0); Anion Gap 6 mmol/L (6-16); Blood Urea Nitrogen 91 mg/dL (8-24); Bun/Creatinine Ratio 56.2 (12.0-20.0); CO2, Blood 31 mmol/L (21-32); Calcium, Blood 8.2 mg/dL (8.5-10.1); Chloride, Blood 98 mmol/L (98-108); Creatinine, Blood 1.62 mg/dL (0.60-1.20); Glomerular Filtration Rate 43 (60-); Glucose, Blood 175 mg/dL (70-99); Magnesium, Blood 2.1 mg/dL (1.6-2.4); Phosphorus, Blood 3.8 mg/dL (2.5-4.9); Potassium, Blood 4.1 mmol/L (3.5-5.5); Sodium, Blood 135 mmol/L (136-145)
--- NOTE | 2021-12-10 12:41 | NUR ---
THIS RN SPOKE TO SON AND DAUGHTER SHERRI OVER TELEPHONE REGARDING THE PATIENT AND POSSIBLY HAVING DENTURES AT HOME. THE PATIENT DOES NOT HAVE DENTURES AT HOME TO BRING IN AT THIS TIME.
--- NOTE | 2021-12-10 18:21 | NUR ---
SHIFT SUMMARY THE PATIENT IS ALERT AND ORIENTED X2-3 THIS SHIFT. THE PATIENT IS PLEASANT AND COOPERATIVE. THE PATIENT WAS ABLE TO EAT BREAKFAST THIS AM. THEY PREFER OATMEAL OVER CREAM OF WHEAT. 600ML OF FLUID THIS SHIFT. THEY HAVE NOT HAD MUCH TO EAT THIS AFTERNOON. THIS NURSE SPOKE WITH THE FAMILY VIA TELEPHONE ABOUT POSSIBLY LOCATING DENTURES FOR THE PATIENT. THE PATIENT DOES NOT CURRENTLY HAVE ANY AT HOME. THE PATIENT CONTINUES TO STATE THEY DON'T FEEL GOOD BUT UNABLE TO EXPLAIN IT. DRESSING CHANGE ON R BKA CHANGED TODAY. MEPILIX TO THE NECK CHANGED. NO ACUTE CHANGES. VSS, BED IN LOWEST POSITION, CALL LIGHT WITHIN REACH.
[2021-12-11 05:17] LABS: Hemoglobin 12.6 g/dL (13.5-17.5)
[2021-12-11 05:43] LABS: Albumin, Blood 1.9 g/dL (3.4-5.0); Anion Gap 7 mmol/L (6-16); Blood Urea Nitrogen 88 mg/dL (8-24); Bun/Creatinine Ratio 61.1 (12.0-20.0); CO2, Blood 32 mmol/L (21-32); Calcium, Blood 8.1 mg/dL (8.5-10.1); Chloride, Blood 98 mmol/L (98-108); Creatinine, Blood 1.44 mg/dL (0.60-1.20); Glomerular Filtration Rate 49 (60-); Glucose, Blood 95 mg/dL (70-99); Phosphorus, Blood 3.2 mg/dL (2.5-4.9); Potassium, Blood 3.8 mmol/L (3.5-5.5); Sodium, Blood 137 mmol/L (136-145)
--- NOTE | 2021-12-11 06:44 | NUR ---
SHIFT SUMMARY: NO SIGNIFICANT EVENTS ON NOC, SLEPT WELL THROUGH THE NIGHT. PAIN TREATED PER EMAR. SKIN WITH SCATTERED SCABS FROM VASCULITS. PATIENT STATES THEY ARE IMPROVING. YEAST TO GROIN TREATED WITH SCHEDULED MEDICATION. DRESISNG TO RIGHT STUMP CDI. JAMES DRAINING ADEQUATE URINE OUTPIT. WCTM.
--- NOTE | 2021-12-11 16:44 | NUR ---
SHIFT SUMMARY A/OX2, PLEASANT AND COOPERATIVE WITH CARE. DENIES PAIN OR SOB. DRESSING CHANGE TO R. STUMP BY DR. SALCIDO THIS SHIFT. JAMES PATENT AND DRAINING TO GRAVITY. USE OF LIFT FOR TRANSFERS. VSS, NO ACUTE CHANGES AT THIS TIME. BED IN LOWEST POSITION WITH CALL LIGHT IN REACH. WILL CONTINUE TO MONITOR AND REPORT TO ONCOMING RN.
--- NOTE | 2021-12-12 03:45 | NUR ---
WEB OPERATIONS SPECIALIST SUMMARY PATIENT HAD A FAIR SHIFT. HIS V/S WERE STABLE. HAD DIFFICULTY SWALLOWING HIS MEDICATION AND WHEN CRUSHED SAID IT WAS TOO BITTER, SO HE REFUSED HIS MEDS. OTHERWISE NO OTHER COMPLAINT LODGED WILL CONTINUE TO MONITOR HIM.
[2021-12-12 05:11] LABS: Hematocrit 41.1 % (37.0-53.0)
[2021-12-12 05:28] LABS: Albumin, Blood 1.9 g/dL (3.4-5.0); Anion Gap 4 mmol/L (6-16); Blood Urea Nitrogen 75 mg/dL (8-24); Bun/Creatinine Ratio 56.8 (12.0-20.0); CO2, Blood 37 mmol/L (21-32); Calcium, Blood 8.1 mg/dL (8.5-10.1); Chloride, Blood 98 mmol/L (98-108); Creatinine, Blood 1.32 mg/dL (0.60-1.20); Glomerular Filtration Rate 54 (60-); Glucose, Blood 62 mg/dL (70-99); Phosphorus, Blood 3.2 mg/dL (2.5-4.9); Potassium, Blood 3.5 mmol/L (3.5-5.5); Sodium, Blood 139 mmol/L (136-145)
--- NOTE | 2021-12-12 10:10 | NUR ---
FIRST MORNING GLUCOSE CHECK THIS MORNING, THE PATIENTS BLOOD SUGAR WAS 55. HE WAS GIVEN APPLE JUICE WITH 2 PACKETS SUGAR, ORANGE JUICE, AND MILK. HE ALSO ATE ONE PACK OF PEANUT BUTTER. SYMPTOMS RESOLVED WITHIN 30 MINUTES.
--- NOTE | 2021-12-12 15:36 | NUR ---
PATIENT STATES HE ISN'T FEELING GOOD. HE SAYS THAT HIS EARS AND THROAT HURT. TYLENOL WAS OFFERED AROUND NOON, BUT THE PATIENT DECLINED. HE IS SLEEPING HE HAS BEEN MOST OF THIS SHIFT. THE PROVIDER WAS UPDATED EARLIER OF THIS PATIENTS COMPLAINT.
--- NOTE | 2021-12-12 18:05 | NUR ---
PATIENT NOT FEELING WELL TODAY. COMPLAINTS OF EAR PAIN, SORE THROAT AND GENERALLY FEELING POOR. PATIENT SLEPT MORE THAN USUAL THIS SHIFT. DRESSING ON RIGHT KNEE WAS CHANGED. DRESSING APPLIED TO COCCYX, WHICH IS BEGINNING TO BREAK DOWN. PATIENT ATE VERY LITTLE TODAY. HE STATES HE IS THIRSTY. PATIENT WAS GIVEN TYLENOL AT THIS TIME FOR SOME PAIN (TAILBONE), COCCYX WAS HURTING- ESPECIALLY DURING BED SANDERS USE. BLOOD SUGAR THIS AM WAS 55. AT EACH MEAL, NO COVERAGE WAS NEEDED.
--- NOTE | 2021-12-13 04:53 | NUR ---
ANTIQUE CLOCK REPAIRER SUMMARY PATIENT HAD A FAIR SHIFT. HE REFUSED SOME OF HIS MEDICATION YET AGAIN STATING IT HURTS HIS THROAT. HE DID NOT LODGE ANY COMPLAINT OVERNIGHT. WILL CONTINUE TO MONITOR HIM.
[2021-12-13 07:38] LABS: Albumin, Blood 2.1 g/dL (3.4-5.0); Anion Gap 7 mmol/L (6-16); Blood Urea Nitrogen 68 mg/dL (8-24); Bun/Creatinine Ratio 56.7 (12.0-20.0); CO2, Blood 36 mmol/L (21-32); Calcium, Blood 8.3 mg/dL (8.5-10.1); Chloride, Blood 97 mmol/L (98-108); Glomerular Filtration Rate >60 (60-); Glucose, Blood 190 mg/dL (70-99); Magnesium, Blood 2.1 mg/dL (1.6-2.4); Phosphorus, Blood 3.3 mg/dL (2.5-4.9); Potassium, Blood 3.7 mmol/L (3.5-5.5); Sodium, Blood 140 mmol/L (136-145)
--- NOTE | 2021-12-13 18:24 | NUR ---
NO ACUTE CHANGES. PT AOX2 WITH CONFUSION. PT WAS LIFTED UP TO CHAIR AND DID NOT TOLERATE SITTING UP LONG AND STARTED TO TRY TO PULL HIMSELF OVER THE ARM OF THE CHAIR WITH THIS CLIENT LEADER IN ROOM. PT DID NOT SEEM TO UNDERSTAND HE WOULD FALL ON THE FLOOR AND HURT HIMSELF. PT TALKS LIKE HE WILL BE LEAVING AND WALKING OUT. BED ALARM IS IN PLACE AND CALL LIGHT WITHIN REACH WILL CONTINUE TO MONITOR.
--- NOTE | 2021-12-14 05:19 | NUR ---
SHIFT SUMMARY A/O X2-3, MORE CONFUSED AT TIMES WITH GARGBLED SPEECH AND THEN SPEECH CLEARED. NO SWALLOWING DIFFICULTY NOTED. DRSG D/I TO RT. BKA. LT. AKA INTACT. PETECHIAE/RASH LIKE AREAS NOTED ALL EXTREMITIES AND TRUNK. DRSG CHANGED ON COCCYX WITH SMALL PINK OPEN AREA NOTED. LT. GROIN ALSO HAS A SMALL OPEN AREA. MEDICATED X1 FOR RT. STUMP PAIN AND MEDICATION WAS EFFECTIVE. TURNED AND REPOSITIONED Q2 HRS. NO ACUTE DISTRESS NOTED.
[2021-12-14 07:32] LABS: Albumin, Blood 2.2 g/dL (3.4-5.0); Anion Gap 7 mmol/L (6-16); Blood Urea Nitrogen 68 mg/dL (8-24); Bun/Creatinine Ratio 58.6 (12.0-20.0); CO2, Blood 34 mmol/L (21-32); Chloride, Blood 95 mmol/L (98-108); Creatinine, Blood 1.16 mg/dL (0.60-1.20); Glomerular Filtration Rate >60 (60-); Glucose, Blood 185 mg/dL (70-99); Magnesium, Blood 2.1 mg/dL (1.6-2.4); Phosphorus, Blood 3.1 mg/dL (2.5-4.9); Potassium, Blood 3.5 mmol/L (3.5-5.5); Sodium, Blood 136 mmol/L (136-145)
--- NOTE | 2021-12-14 17:01 | NUR ---
DAY SHIFT SUMMARY 66 YR OLD MALE PT ADMITTED FOR SEPSIS, AFIB, LANDON. PT REFUSED ALL MORNING MEDS PO THIS AM. C/O SOB THIS AM, AWARE. WAITING PLACEMENT WITH SNF. ON RA. DRESSING CHANGES PER ORDER. CALL LIGHT WITHIN REACH. A/O X3 WITH GARBALED SPEECH AT TIMES.
--- NOTE | 2021-12-15 07:40 | NUR ---
SHIFT SUMMARY PT RESTED FAIRLY WELL, A/O X 1-2, INCONTINENT OF URINE, ATTENDS CHANGED AND NAVI CARE DONE NEEDED. PT REPOSITIONED FOR COMFORT AND TO PREVENT FURTHER SKIN BREAKDOWN. COCCYX WITH PINK, DRY, SCALY SKIN NOTED, LOTION APPLIED AND MEPILEX IN PLACE. SMALL, OPEN SORE NOTED TO MID UPPER BACK, MEPILEX CHANGED TO SITE. SCATTERED SCABS NOTED TO LLE, TROY WRAP TO RLE BKA SITE. BLOOD SUGAR THIS AM WAS 62, CRANBERRY JUICE, PUDDING AND SOME ENSURE GIVEN TO PT. BLOOD SUGAR UP TO 95 AFTER. VSS, HR IRREG, HX OF AFIB, ANTICIPATE D/C WHEN PLACEMENT DETERMINED.
[2021-12-15 08:30] LABS: Glomerular Filtration Rate >60 (60-); Potassium, Blood 2.9 mmol/L (3.5-5.5)
--- NOTE | 2021-12-15 16:43 | NUR ---
SHIFT SUMMARY PATIENT DENIES PAIN, NAUSEA, AND SHORTNESS OF BREATH. PATIENT IS A LIFT FOR TRANSFERS. PATIENT CALLED OUT FREQUENTLY TODAY, REMINDED OF CALL LIGHT USE, PATIENT CONTINUED TO CALL OUT. PATIENT IS A&O X2. PATIENT HAS BEEN REFUSING TO GET OUT OF BED. PATIENT HAS BEEN REFUSING SOME MEDICATIONS. PATIENT HAS POOR FOOD INTAKE, BUT WILL DRINK ENSURES. PATIENT IS AWAITING CARDIOPULMONARY TECHNICIAN AND EEG TECH CARE PLACEMENT.
--- NOTE | 2021-12-16 03:51 | NUR ---
SHIFT SUMMARY ADMITTED FOR PNEUMONIA/SEPSIS. FULL CODE. PLAN IS FOR PLACEMENT. OLD LEFT AKA, NEW RIGHT BKA. LIFT PT. 1200 ML FLUID RESTRICTION. ACHS CHEMSTICKS, LOW SS. FERNANDO HELD THIS SHIFT DUE TO NEAR HYPOGLYCEMIA TRENDS IN AM. SUPERVISED PUREE DIET. COOPERATIVE WITH CARE THIS SHIFT. NO NEW CONCERNS.
[2021-12-16 12:14] LABS: Glomerular Filtration Rate >60 (60-); Potassium, Blood 3.4 mmol/L (3.5-5.5)
--- NOTE | 2021-12-16 16:38 | NUR ---
SHIFT SUMMARY PT AWAKE AT START OF SHIFT, RESTING QUIETLY WATCHING TV. AM CBG TAKEN SHOWING 68. PER NOC SHIFT REPORT, LANTUS HELD LAST NIGHT D/T DECREASED CBG'S, ESPECIALLY IN AM. DR HENLEY TO RM TO SEE PT AND UPDATED ON PT STATUS. DR HENLEY TO EVALUATE LANTUS ADJUSTMENT. PT EATING SM AMT OF BREAKFAST, BUT THEN NOT WANTING TO EAT MUCH OF LUNCH. AM MEDS ADMINISTERED IN APPLESAUCE, BUT THEN PT SPIT SOME OF THEM OUT WHEN HE THOUGHT NO ONE WAS LOOKING. PT REFUSED TO TAKE ANY OF THEM THAT HE HAD SPIT OUT. PT'S BROTHER HERE TO VISIT THIS AFTERNOON. PER SHIFT REPORT, PT WAITING FOR PLACEMENT. CALLED FOR BEDPAN A COUPLE OF TIMES; UNSUCCESSFUL TO PRESENT. BOWEL CARE GIVEN PER EMAR. DENIED FURTHER NEEDS. CALL LT IN REACH.
--- NOTE | 2021-12-17 04:00 | NUR ---
PT REPORTED FEELING SOB. LUNGS CLEAR, DIMINISHED, 96% ON ROOM AIR, RT NOTIFIED FOR PRN BREATHING TX. B/P/ 134/100, HR IRREG AND RANGING BETWEEN LOW 100'S TO 150 ON THE PULSE OX MONITOR. BLOOD SUGAR 182. DR. ARIAS NOTIFIED, ORDERS RECEIVED FOR AN EKG, TELE, AND PORTABLE CHEST XRAY. MD ALSO NOTIFIED THAT THE DRSG WAS REMOVED TONIGHT TO R BKA INCISION AND LARGE AREA NOTED TO BE DARK/BLACK AROUND INCISION. DR. ARIAS STATED THAT HE'D HAVE SOMEONE COME LOOK AT IT LATER THIS AM.
--- NOTE | 2021-12-17 07:59 | NUR ---
SHIFT SUMMARY PT ALERT, CONFUSED, COOPERATIVE WITH CARES. HR IRREGULAR WITH RATE IN THE 110'S- 120'S. PT HAD EPISODE OF SOB, TELE PLACED ON PT PER ORDERS WITH AFIB NOTED. R BKA INCISION WITH BLACK TISSUE NOTED TO INCISION AND SURROUNDING TISSUE, MD NOTIFIED AND NEW PICTURE PLACED IN CHART. PT INCONTINENT OF URINE THROUGHOUT THE SHIFT, FULL BED BATH AND LINEN CHANGED BY THE RANGE MANAGER. PT ATE SMALL AMOUNT OF DINNER, BLOOD SUGAR WAS 198 LAST NIGHT, MED PER MAR WITH SCHEDULED LONG ACTING INSULIN. SCATTERED SCABS NOTED TO LLE, SMALL SORE NOTED JUST BELOW BACK OF NECK, LEFT OPEN TO AIR THIS SHIFT. PT REPOSTIONED FOR COMFORT AND TO PREVENT FURTHER SKIN BREAKDOWN, EGG CRATE OVERLAY MATTRESS ON BED. PT INCONTINENT OF URINE, NO STOOL. VSS, ANTICIPATE D/C WHEN MEDICALLY STABLE.
--- NOTE | 2021-12-17 18:51 | NUR ---
AOX2 ABLE TO MAKE NEEDS KNOWN SOME CONFUSION. PT SEEMS TO POCKET PILLS IN MOUTH SO ALL MEDS THAT COULD BE CRUSHED WERE GIVEN CRUSHED. PT ALSO HAS AN INCREASED HR TODAY. TELE REPORTED 112-120 MID DAY WITH A COUPLE HIGHER SPIKES THAT WENT IMMEDIATELY DOWN. SEEMED TO IMPROVE WITH AM DOSE OF METOPROLOL THE DAY WENT ON. PT HAD BANDAGE REWRAPPED AND RBK AMPUTAION IS BLACK IN COLOR SENT TEXT TO NOTIFY DR SALCIDO. PT IS A TWO PERSON CHANGE AND IS INCONTENT OF BMs AND URINE WILL AT TIMES TRY TO USE URINIAL OR BED SANDERS. NO DISTRESS NOTED WILL CONTINUE TO MONITOR.
--- NOTE | 2021-12-18 03:49 | NUR ---
PT IS ALERT, CONFUSED, IS A MAX ASSIST IN BED AND INCONTINENT OF BOWEL IN BLADDER, ATTENDS IN PLACE. PT REFUSES CARES AT TIMES, WILL CHEEK MEDICATIONS IF NOT CRUSHED AND PUT IN CARRIER. PT REMAINS ON TELE FOR IRREGULAR HB D/T AFIB. PT REMOVES LEADS AND REQUIRES REDIRECTION AND EDUCATION ON IMPORTANCE OF HAVING THESE LEADS STAY IN PLACE. WILL CONTINUE TO MONITOR THIS PATIENT THE REST OF THE NIGHT AND REPORT TO MORNING RN
[2021-12-18 05:37] LABS: Glomerular Filtration Rate >60 (60-); Potassium, Blood 3.4 mmol/L (3.5-5.5)
--- NOTE | 2021-12-18 18:12 | NUR ---
SHIFT SUMMARY PT UNABLE TO TAKE ALL HIS MEDS AT ONCE BUT ENDED UP TAKING THEM OVER A SEVERAL HOUR PERIOD. EPISODES OF NAUSEA THAT COMES AND GOES. NEEDS FREQUENT REMINDING TO KEEP HIS HEAD ELEVATED WHEN EATING AND NOT LAY HIS BED DOWN. SISTER IN TO VISIT FOR SHORT TIME. ENCOURAGED TO KEEP ON HIS SIDE FOR REDENNED BOTTOM.
--- NOTE | 2021-12-19 03:57 | NUR ---
SHIFT SUMMARY - NO ACUTE CHANGES THROUGHOUT THIS SHIFT. PT CONTINUES IN AFIB - HEART RATE 110-120'S, WITH AN OCCASIONAL HR 150'S (NON-SUSTAINING). PT TOLERATED PO INTAKE WITH HOB ELEVATED, WITHOUT COMPLICATIONS. PT HAS A TENDENCY TO PULL HIS TELEMETRY PADS OFF, AND OFTEN CALLS OUT, INSTEAD OF USING THE CALL LIGHT. PT REDIRECTS EASILY. PT INCONTINENT OF URINE, ATTENDS IN PLACE - CD&I THIS AM. CALL LIGHT WITHIN REACH. BED ALARM ON FOR SAFETY. FLUIDS AT BEDSIDE. FLUID RESTRICTION 1L. BED IN LOW POSITION. WILL CONTINUE TO MONITOR UNTIL AM SHIFT CHANGE.
--- NOTE | 2021-12-19 17:05 | NUR ---
Met with pt today. He remains on a 1000mL fluid restriction, and denies any pain to R stump. Care managers are looking for placement. No changes to care plan at this time.
--- NOTE | 2021-12-19 18:34 | NUR ---
SHIFT SUMMARY PT APPEARS TO WANT TO SLEEP MOST OF DAY. ONLY EATING A FEW BITES OF EACH MEAL. WANTS TO DRINK MORE THAN EAT. WOULD ONLY TAKE 1 TO 2 MEDS AT A TIME TODAY SO TAKING MEDS WERE QUITE TIME CONSUMING WITH PT SPITTING THEM OUT AND THEN SAYING SORRY AND TAKING THEM AGAIN. WOULD SAY HIS STOMACH WAS BOTHERING HIM AND THEN REFUSE ANY MORE MEDS. DRESSING INTACT TO R STUMP. NO BLEEDING NOTED FROM ANY SCABS TO LLE OR HAND/ARMS.
--- NOTE | 2021-12-19 22:26 | NUR ---
CONTINUES TO REFUSE SOME MEDS (SEE MAR FORSERGETAILS). ENCOURAGED TO COMPLY WITH MEDICATION REGIMINE. TOLERATED MEDS HE DID TAKE WITH APPLESAUCE. CALL LIGHT IN REACH.
--- NOTE | 2021-12-20 05:24 | NUR ---
CARPET SEWER SUMMARY HAS BEEN RESTING QUIETLY AT INTERVALS. SOME MEDS REFUSED (SEE MAR) AND PULLED OUT IV. CONTINUES TO PULL OFF TELE LEADS AND REPLACED PER STAF. PT IS ENCOURAGED TO COMPLY WITH HOSPITAL REGIMINE (MEDS, ETC) BUT CONTINUES TO SHOW OPPOSITION. INCONT A FEW TIMES AND CLEANED AND LINEN CHANGED. CALL LIGHT IN REACH.
--- NOTE | 2021-12-20 16:26 | NUR ---
SHIFT SUMMARY PT A/O X2 AND AWAITING PLACEMENT. HE HAS BILATERAL AMPUTATIONS WITH A RBKA AND A LAKA. RBKA COVERED WITH TROY WRAP DRESSING AND CDI. PT REFUSED SOME MEDICATIONS, SEE EMR. PT INCONTINENT THIS SHIFT. VSS.
--- NOTE | 2021-12-21 03:47 | NUR ---
Patient triggered a vews of 3 due to HR being 128, patient is running AFIB 120s. Tele monitored. Patient is asymtomatic.
--- NOTE | 2021-12-21 06:16 | NUR ---
Patient alert and oriented x2-3, forgetul. RBKA AND LBKA. Patient refuse for RBKA with wound to be dressed. Educated patient about proper wound dressing but he keeps taking it off. new IV started. Patient is bedbound Q2 turns completed. call light within reach. Dr. Penn verbal order to ceci xiong to IV completed.
[2021-12-21 07:35] LABS: Potassium, Blood 3.9 mmol/L (3.5-5.5)
--- NOTE | 2021-12-21 08:36 | NUR ---
pt laying in bed awake watching tv, alert, some confusion, and not wanting to cooperate with medications, states he can't take his po meds due to a sore throught, examined throat, does not appear red, he then asked for tylenol for his bottom and is willing to take that. lungs are clear a bit dim in bases, on r/a, resp even and unlabored, no cough noted, hrirr, tele in place running afib per monitor, see strip, on 1 l/d fluid restriction, has a rbka adn laka, bed rest, incont of bladder and bowel, attends in place, skin has scattered scabs and stumps have drying sores, maew, iv to lac flushes well, camilo, call light in reach, is asp precautions, will crush meds and give in applesause.
--- NOTE | 2021-12-21 18:37 | NUR ---
pt has had an uneventful day, not really wanting to participate in care, but was more willing to take his po meds this evening. sleeps when left undisturbed. call light in reach.
--- NOTE | 2021-12-22 06:20 | NUR ---
Patient is alert and oriented x3 forgetful. Complains of right leg pain, prn tylenol given. Q2 turn compelted. Patient is more cooperative tonight with his medications. Snacks provided. No signs of distress. Call light within reach.
--- NOTE | 2021-12-22 08:18 | NUR ---
PT COOPERATIVE AND PLESEANT. A/O X2 TO PERSON AND SITUATION. DENIES PAIN. CHEWS MEDICATIONS EVEN THOUGH INSTRUCTED TO SWALLOW PILLS. HE HOLD THEM ON HIS TONGUE EVEN WHEN GIVEN WITH APPLESAUCE AND WATER. HE WAS INSTRUCTED MULTIPLE TIMES TO SWALLOW AND NOT TO CHEW. ON TELE. PER CHIMNEY BUILDER BRICK PT IN AFIB, H/R 70-100. NO MURMURS PRESENT. LUGS CLEAR BILATERALLY. BREATHING ON ROOM AIR. BREATHING EASY AND UNLABORED. LAST BOWEL MOVEMENT WAS YESTERDAY, BOWEL SOUNDS ACTIVE IN ALL FOUR QUADRANTS. PT DID NOT CALL FOR HELP, BUT URINATED IN A CUP. PT GIVEN URINAL AND DIRECTED TO USE URINAL NOT CUP. MILD SKIN BREAKDOWN ON BUTTOCKS. RED IN COLOR. MICONAZOLE POWDER APPLIED TO BUTTOCKS. LT BKA WOUND IS DRY AND DARK IN COLOR. NO PURULENT DRAINAGE OR SMELL. PT DECLINES TO HAVE IT WRAPPED AT THIS TIME. HE PREFERS TO HAVE IT OPEN TO AIR. IV INTACT. CALL LIGHT IN REACH, BED IN LOW POSITION.
--- NOTE | 2021-12-22 11:39 | NUR ---
DR US IN ROOM. [facility] D/C TELE.
--- NOTE | 2021-12-22 13:36 | NUR ---
Spiritual Care visit... Pt. is awake in bed and welcomes my visit. Pt. has been unsettled because he lacks a support system and has "nowhere to go." Pt. verbalizes some of the difficult moments he has had. Through theraputic listening and pastoral breastfeeding peer counselor Pt. displays evidence of increased hope. This pulpwood dealer challenged pt. to advocate for himself and to seek to strengthen himself. Pt. verbalized agreement. Prayed for pt. Pt. verbalized gratitude for the spiritual care visit.
--- NOTE | 2021-12-22 16:34 | NUR ---
ADVISED DR US HE IS CHEWING PILLS AND NOT FOLLOWING DIRECTIONS. ASKED TO CHANGE LONG ACTING MEDS TO SHORT.
--- NOTE | 2021-12-22 18:19 | NUR ---
PT COOPERATIVE AND PLESEANT. ALERT AND ORIENTED X3. DENIES PAIN AT THIS TIME. D/C TELE PER DOCTOR. H/R IN 80'S. NO MURMUR. LUNGS CLEAR BILATERALLY. BREATHING IS UNLABORED AND EASY. NO BOWEL MOVEMENT ON SHIFT. PT STATED LAST BOWEL MOVEMENT WAS YESTERDAY. INCONTINENT ON SHIFT. DECLINED TO USE A URINAL LATER THIS AFTERNOON. CALL PLACED TO DOCTOR TO CHANGE MEDICATIONS TO REGULAR INSTEAD OF EXTENDED RELEASE PATIENT HAS TROUBLE TAKING THESE MEDICATIONS. PT FAMILY AT BEDSIDE. UNCLEAR TO WHY HE IS ON A PUREE DIET. TOLD PT AND FAMILY THAT HE IS UNABLE TO CHEW WELL WE WOULD LIKE HIM TO BE. FAMILY AND PATIENT UNDERSTAND THAT IS HE IS ABLE TO CHEW AND SWALLOW BETTER THAN HE MAY BE ABLE TO HAVE A REGULAR DIET. PT DOES NOT HAVE FALSE TEETH AT HOME. CALL LIGHT IN REACH, BED IN LOW POSITION.
--- NOTE | 2021-12-22 19:34 | NUR ---
AGREE WITH STUDENT RN CLOSING NOTE
--- NOTE | 2021-12-23 04:46 | NUR ---
Patient is alert and oriented x2, very forgetful. Complains of right leg pain, prn tylenol given. He was compliant with taking his medications tonight. Does not want his right bka to be dressed. Incontinence in bowel and urine, condom cath placed. Q2 turned. Patient is resting, no SOB, no signs of distress. Call light within reach.
[2021-12-23 05:20] LABS: Hematocrit 40.9 % (37.0-53.0); Hemoglobin 12.9 g/dL (13.5-17.5)
[2021-12-23 06:03] LABS: Albumin, Blood 1.8 g/dL (3.4-5.0); Anion Gap 7 mmol/L (6-16); Blood Urea Nitrogen 48 mg/dL (8-24); Bun/Creatinine Ratio 42.9 (12.0-20.0); CO2, Blood 34 mmol/L (21-32); Calcium, Blood 7.8 mg/dL (8.5-10.1); Chloride, Blood 100 mmol/L (98-108); Creatinine, Blood 1.12 mg/dL (0.60-1.20); Glomerular Filtration Rate >60 (60-); Glucose, Blood 81 mg/dL (70-99); Phosphorus, Blood 3.2 mg/dL (2.5-4.9); Potassium, Blood 3.2 mmol/L (3.5-5.5); Sodium, Blood 141 mmol/L (136-145)
--- NOTE | 2021-12-23 08:15 | NUR ---
LEFT MESSAGE WITH DR.KHAN GARCIA SUGAR 54, GIVEN O.J. AND YOGURT AND ATE ALL. 2 ODERS FOR POTASSIUM 40 MEQ EACH. DOES HE WANT 80 TOTAL OR 40/ AWAITING ORDERS.
--- NOTE | 2021-12-23 09:13 | NUR ---
BLD SUGAR RECHECKED AND 89.
--- NOTE | 2021-12-23 15:39 | NUR ---
ALERT. ORIENTED. FORGETFUL. TAKES MEDS IN APPLESAUCE. SLIGHT REDNESS TO BILATERAL INGUINAL AREA. INCONTINENT OF STOOL. SCABS T/O BODY. DARK BLACK SKIN TO RT STUMP. DARK SCAB TO LEFT STUMP. UNLABORED RESPIRATIONS. COOPERATIVE. CEILING LIFT TO GET PATIENT INTO HIS WHEELCHAIR WHICH IS TOO SMALL FOR HIM. IV PATENT. WCTM
--- NOTE | 2021-12-24 03:16 | NUR ---
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 HOWEVER, DURING THE NIGHT, PULLED OFF CONDOM CATH AND VOIDED INCONT ON THE BED CAUSING A COMPLETE BED CHANGE. VOICED HE WOULD FOCUS AGAIN ON COMPLIANCE. WILL MONITOR. NOTE OPEN AREAS OF RIGHT STUMP REMAINS DARK RED ESCHAR. NO NOTED EXUDATE, BUT SEEMS SLIGHTLY SWOLLEM. NO C/O PAIN. RESPS DIMINISHED BUT NO NOTED DISTRESS IN BREATHING. CALL LIGHT IN REACH. RAILS UP X 3
[2021-12-24 06:08] LABS: Anion Gap 4 mmol/L (6-16); Blood Urea Nitrogen 41 mg/dL (8-24); Bun/Creatinine Ratio 39.4 (12.0-20.0); CO2, Blood 35 mmol/L (21-32); Calcium, Blood 7.6 mg/dL (8.5-10.1); Chloride, Blood 102 mmol/L (98-108); Creatinine, Blood 1.04 mg/dL (0.60-1.20); Glomerular Filtration Rate >60 (60-); Glucose, Blood 124 mg/dL (70-99); Potassium, Blood 3.4 mmol/L (3.5-5.5); Sodium, Blood 141 mmol/L (136-145)
--- NOTE | 2021-12-24 07:36 | NUR ---
TALKED TO ABOUT 2 DIFFERENT POTASSIUM ORDERS. STS WANTS POTASSIUM 40 MEQ OT AND TO CANCEL ANY OTHERS.
--- NOTE | 2021-12-24 15:18 | NUR ---
UP IN RECLINER FOR LUNCH. APPEARS COMFORTABLE. PATIENTS OWN W/C IS TOO SMALL FOR HIM.
--- NOTE | 2021-12-24 18:08 | NUR ---
ALERT. ORIENTED. COOPERATIVE. IN RECLINER TODAY. UNLABORED RESPIRATIONS. CONDOM CATH ON. NO ACUTE CHANGES. WOUND CLINIC EVAL FOR TOMORROW FOR STUMP. [facility]
--- NOTE | 2021-12-25 05:04 | NUR ---
SHIFT SUMMARY A/O 2-3, FORGETFUL. YELLS OUT AT TIMES, EASILY REDIRECTED. DENIES PAIN OR SOB. LIFT PT. VSS, NO ACUTE CHANGES AT THIS TIME. BED IN LOWEST POSITION WITH CALL LIGHT IN REACH. WILL CONTINUE TO MONITOR AND REPORT TO ONCOMING RN.
[2021-12-25 05:12] LABS: Hematocrit 42.6 % (37.0-53.0); Hemoglobin 13.6 g/dL (13.5-17.5)
[2021-12-25 05:31] LABS: Anion Gap 6 mmol/L (6-16); Blood Urea Nitrogen 35 mg/dL (8-24); Bun/Creatinine Ratio 37.4 (12.0-20.0); CO2, Blood 30 mmol/L (21-32); Calcium, Blood 7.5 mg/dL (8.5-10.1); Chloride, Blood 103 mmol/L (98-108); Creatinine, Blood 0.94 mg/dL (0.60-1.20); Glomerular Filtration Rate >60 (60-); Glucose, Blood 89 mg/dL (70-99); Magnesium, Blood 1.9 mg/dL (1.6-2.4); Phosphorus, Blood 2.6 mg/dL (2.5-4.9); Potassium, Blood 3.5 mmol/L (3.5-5.5); Sodium, Blood 139 mmol/L (136-145)
--- NOTE | 2021-12-25 09:00 | NUR ---
PT PLEASANT COOP A/O TO SELF AND PLACE DENIES PAIN. FORGETFUL ON DATES, PRESIDENT AND DETAILS. WRONG YEAR. H/R IRREG. (HX AFIB) NO TELE. LUNGS CLEAR RESP EASY, UNLABORED. ON R.A. BT X4 LAST BM TODAY. SOFT. VOIDS ADAN CATH. DARK, SEDIMENT NOTED. 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 MISC SCABS, AND WOUND ON RT STUMP. ALL ROSEANNE. REFUSING DRESSINGS. BED IN LOW POSITION, CALL LITE IN REACH, CALLS APRIOP.
--- NOTE | 2021-12-25 10:46 | NUR ---
PT PLESANT AND COOPERATIVE TODAY. ALERT AND ORIENTED X2. KNOWS PERSON AND . DOES NOT KNOW LOCATION AND PRESIDENT. FORGETS LIMITATIONS. DENIES PAIN AT THIS TIME. H/R IN THE 80'S. NO TELE. RHYTHM IS IRREGULARLY IRREGULAR. NO MURMURS. LUNG SOUNDS ARE DIMINISHED BILATERALLY. BREATHING IS UNLABORED AND EASY. ON ROOM AIR. BOWEL SOUNDS IN ALL FOUR QUADRANTS. MEDIUM BOWEL MOVEMENT THIS MORNING THAT WAS LOOSE. CONDOM CATHETER IN PLACE FOR INCONTINENCE. COCCYX SLIGHTY RED. MICONAZOLE POWDER APPLIED. SCABS ON ABDOMEN AND LEGS THAT HE PICKS AT. LT BKA STUMP WOUND IS DRY AND DARK IN COLOR. BLOOD SUGAR WAS 61 BEFORE BREAKFAST. APPLE JUICE WAS GIVEN. BED IN LOW POSITION, CALL LIGHT IN PLACE, CALLS APPROPRIATLY.
--- NOTE | 2021-12-25 16:45 | NUR ---
NO ACUTE CHANGES. CARE TAKEN OVER FROM RORO BOOKER TODAY. PT SEEMS PLEASANT AND COOPERATIVE TODAY. AOX2-3 AND ABLE TO MAKE NEEDS KNOWN. PT DENIED PAIN AND TRYS TO HELP TURN WHEN NEEDING CHANGED. CALL LIGHT IS WITHIN WILL CONTINUE TO MONITOR.
--- NOTE | 2021-12-25 20:45 | NUR ---
MEDICATIONS PT REFUSED ALL MEDICATIONS WHEN THIS RN WALKED INTO THE ROOM WITH THEM. ASKED PT IF HE WANTED ME TO TELL HIM WHAT THEY WERE OR WHAT THEY WERE FOR AND PT SAID "NO, NOT INTERESTED". DISCUSSED THE IMPORTANCE OF TAKING MEDICATIONS RECOMMENDED BY THE DR AND PT REMAINED ADAMANT THAT HE WAS NOT GOING TO BE TAKING ANY OF THEM. PT APPEARED TO HAVE A FLAT AFFECT WHILE TALKING TO HIM AND HE APPEARED TO BE DISCOURAGED ABOUT "FEELING WEAK". PT C/O HIS BACK HURTING BUT NOT WANTING MEDICATIONS FOR IT, OFFERED K PAD WHICH PT ACCEPTED. WILL CTM.
--- NOTE | 2021-12-26 04:30 | NUR ---
SHIFT SUMMARY PT REPORTS FEELING DISCOURAGED ABOUT HIS GENERALIZED WEAKNESS AND BEING UNABLE TO SELF TRANSFER TO HIS WHEELCHAIR, FOUND AN UNIDENTIFIED CAPSULE IN THE PATIENTS BEDDING THAT HAD NO MARKINGS BUT WAS CONSISTENT VISUALLY WITH HIS PRESCRIBED PROBIOTIC WHICH WAS DISCARDED. PT REFUSED ALL MEDICATIONS BUT WAS WILLING TO TAKE A HEATING PAD FOR COMFORT. NO ACUTE EVENTS THIS SHIFT. CALL LIGHT IN REACH, WILL CTM AND REPORT TO ONCOMING DAY RN.
--- NOTE | 2021-12-27 05:28 | NUR ---
Shift Summary Patient a/ox4 however with notted periods of forgetfulness. Around 0500 pt c/o of back pain and tylenol 650 given in pudding. Shortly after two white pills appearing to be tylenol found on the bedsheets. Pt initially denied spitting them then afterwards stated that he did spit them because he "does not like the way pills make me feel." Educated patient as to why he shouldn't do that as his pain will remain untreated and we won't have an accurate record. Patient verbalized understanding. Pulse rate fluctuating with readings, pt does have hx of a-fib. No acute changes. Patient repositioned as much as possible-limited due to patient not wanting to be awaken during the night.
--- NOTE | 2021-12-27 14:17 | NUR ---
Spiritusl Care visit... Pt. is awake in bed. Pt welcomes my visit. Pt. is very unsettled about the unsatisifying diet he is given. Listen empathetically and attempt to normalize the pt. experience. Pt. displays evidence of frustration. Provider a calming presence. Attempt to focus pt. on the expectation of a transfer to [place] in the near future. Pt. displays evidence of agrrement and acceptance. Margie with the pt. Pt. verbalizes gratitude for the spiritual care visit...and... verbally asked if I could "get him a hamburger." This wood heel back liner made no commitment to honor the request.
--- NOTE | 2021-12-27 18:33 | NUR ---
PATIENT DOING WELL THIS SHIFT, TOOK ALL MEDS WITHOUT ANY ISSUES. PTS CBG 50 THIS AM, RECHECKED AFTER BREAKFAST CBG 114. NO ACUTE CHANGES TO PATIENT STATUS THIS SHIFT, AWAITING PLACEMENT. REINFORCED EDUCATION ON ASPIRAITON PRECAUTIONS, AND SITTING UPRIGHT DURING MEALS. PT SMEARING, BUT NO BM THIS SHIFT. VSS.
--- NOTE | 2021-12-28 05:16 | NUR ---
SHIFT SUMMARY 66 Y M ADMITTED .30DAYS AGO WITH SEPSIS, AFIB, PNEUMONIA. PT HAS BILAT BKA AND IS BEDBOUND WITH [facility]IFT TRANSFER. PT APPEARS TO BE A&O BUT DOES SEEM RESTLESS AND CALLS FREQUENTLY FOR ASSISTANCE. PT HAS BEEN PLEASANT AND COOPERATIVE THIS SHIFT. D/C PLANNING IN PROCESS, PLACEMENT PENDING. NO ACUTE CHANGES TO REPORT THIS SHIFT
[2021-12-28] MEDS ORDERED: INSULANPEN SC (15:38)
[2021-12-28] MEDS ORDERED: HUMULIN R100 UNIT/2 SC (15:39)
[2021-12-28] MEDS ORDERED: MIRT15ST PO (15:40)
[2021-12-28] MEDS ORDERED: ANTIFUNGAL POWD71 GM TOP (15:40)
[2021-12-28] MEDS ORDERED: MULTIVITAMIN LIQUID PO (15:41)
[2021-12-28] MEDS ORDERED: PREDNISONE5 M1 PO (15:41)
[2021-12-28] MEDS ORDERED: TAMS.4ER PO (15:42)
[2021-12-28] MEDS ORDERED: XARELTO20 MG PO (15:42)
[2021-12-28] MEDS ORDERED: ZINC220 PO (15:42)
--- NOTE | 2021-12-28 16:07 | NUR ---
NO CHANGES TO PATIENT STATUS THIS SHIFT. CHANGED MEPILEX ON BUTTOCKS, SKIN RED/BLANCHABLE. SPONGE BATH. VITALS STABLE, CBG WNL. PATIENT TRANSPORTED TO [facility] AT 1600 TODAY. PAPERWORK GIVEN TO EMS.
== END 2021-12-28 16:10 | DRG 474 ==
LOC: ER 09:29 → MEDS 11:43 → PCU 11:43 → MEDS 11-23 13:54
PROVIDERS: Dermatology; Internal Medicine; Internal Medicine Nephrology; Orthopaedic Surgery; Pharmacist; Physician Assistant; ADMIT Family Medicine
PROC: 047M3ZZ Dilation of Right Popliteal Artery, Percutaneous Approach (ICD-10-PCS; 2021-11-16)
PROC: 047T3ZZ Dilation of Right Peroneal Artery, Percutaneous Approach (ICD-10-PCS; 2021-11-16)
PROC: B4101ZZ Fluoroscopy of Abdominal Aorta using Low Osmolar Contrast (ICD-10-PCS; 2021-11-16)
PROC: B41F1ZZ Fluoroscopy of Right Lower Extremity Arteries using Low Osmolar Contrast (ICD-10-PCS; 2021-11-16)
PROC: 0Y6H0Z1 Detachment at Right Lower Leg, High, Open Approach (ICD-10-PCS; principal; 2021-11-18 11:30)
DX: T87.43 Infection of amputation stump, right lower extremity (principal); A41.02 Sepsis due to Methicillin resistant Staphylococcus aureus; J18.9 Pneumonia, unspecified organism; G92.8 Other toxic encephalopathy; U07.1 COVID-19; R65.20 Severe sepsis without septic shock; E11.52 Type 2 diabetes mellitus with diabetic peripheral angiopathy with gangrene; L03.115 Cellulitis of right lower limb; I96 Gangrene, not elsewhere classified; I48.21 Permanent atrial fibrillation; E87.2 Acidosis; F20.0 Paranoid schizophrenia; N17.9 Acute kidney failure, unspecified; J44.0 Chronic obstructive pulmonary disease with (acute) lower respiratory infection; I50.22 Chronic systolic (congestive) heart failure; I13.0 Hypertensive heart and chronic kidney disease with heart failure and stage 1 through stage 4 chronic kidney disease, or unspecified chronic kidney disease; M31.0 Hypersensitivity angiitis; I95.9 Hypotension, unspecified; D53.9 Nutritional anemia, unspecified; D75.839 Thrombocytosis, unspecified; E11.51 Type 2 diabetes mellitus with diabetic peripheral angiopathy without gangrene; I70.221 Atherosclerosis of native arteries of extremities with rest pain, right leg; E83.41 Hypermagnesemia; E87.5 Hyperkalemia; R79.89 Other specified abnormal findings of blood chemistry; E83.39 Other disorders of phosphorus metabolism; E87.6 Hypokalemia; R23.3 Spontaneous ecchymoses; E88.09 Other disorders of plasma-protein metabolism, not elsewhere classified; F32.A Depression, unspecified; N50.89 Other specified disorders of the male genital organs; K21.9 Gastro-esophageal reflux disease without esophagitis; E11.42 Type 2 diabetes mellitus with diabetic polyneuropathy; Z59.00 Homelessness unspecified; T36.8X5A Adverse effect of other systemic antibiotics, initial encounter; E11.65 Type 2 diabetes mellitus with hyperglycemia; I25.10 Atherosclerotic heart disease of native coronary artery without angina pectoris; E11.22 Type 2 diabetes mellitus with diabetic chronic kidney disease; N18.9 Chronic kidney disease, unspecified; F17.210 Nicotine dependence, cigarettes, uncomplicated; Z88.0 Allergy status to penicillin; Z71.6 Tobacco abuse counseling; Z79.02 Long term (current) use of antithrombotics/antiplatelets; Z79.4 Long term (current) use of insulin; Z79.899 Other long term (current) drug therapy; I25.2 Old myocardial infarction; Z28.21 Immunization not carried out because of patient refusal; Z95.1 Presence of aortocoronary bypass graft; Z95.5 Presence of coronary angioplasty implant and graft; Z89.612 Acquired absence of left leg above knee; Z79.01 Long term (current) use of anticoagulants
CPT/HCPCS: 0241U; 36415; 37228; 37232; 71045; 73552; 73590; 73630; 75716; 75774; 76937; 80048; 80053; 80069; 80202; 81001; 81050; 82010; 82140; 82595; 82784; 82803; 82947; 83036; 83516; 83520; 83605; 83735; 84132; 84153; 84156; 84165; 84166; 84484; 85014; 85018; 85025; 85027; 85610; 85651; 85730; 86037; 86038; 86140; 86160; 86225; 86235; 86334; 86335; 87040; 87077; 87086; 87186; 87389; 87522; 88305; 88307; 88312; 88346; 88350; 92526; 92610; 93005; 93010; 93926; 94640; 94664; 94760; 96374; 96375; 96376; 97110; 97162; 97166; 97530; 97535; 99152; 99153; 99285-25; A9270; C1725; C1760; C1769; C1887; C1894; C8929; J0171; J0610; J0692; J0696; J1100; J1644; J1650; J1815; J1940; J2250; J2405; J2704; J3010; J3370; J7030; J7040; J7050; J7060; J7070; J7512; Q9957; Q9967

== ENCOUNTER 2021-12-31 00:03 | Emergency (ER) | payer OTHER ==
[~2021-12-31] VITALS: Ht 142.2 cm; Wt 80.7 kg
[~2021-12-31 00:03] MED LIST changes: +ANTIFUNGAL POWD71 GM TOP; +Aspir 8181 MG PO; +FISH OIL 1,2001 EAC7 PO; +MIRT15ST PO; +MULTIVITAMIN LIQUID PO; +NOVOLOG FL100 UNIT/3 SC; +PREDNISONE5 M1 PO; +TAMS.4ER PO; +ZINC220 PO
[2021-12-31 00:54] LABS: BASOPHILS ABSOLUTE AUTO 0.02 K/mm3 (0.00-0.23); BASOPHILS PERCENT AUTO 0 % (0-2); EOSINOPHILS PERCENT AUTO 1 % (0-6); Hematocrit 39.3 % (37.0-53.0); Hemoglobin 12.4 g/dL (13.5-17.5); IMMATURE GRAN ABSOLUTE AUTO 0.05 K/mm3 (0.00-0.10); IMMATURE GRAN PERCENT AUTO 1 % (0-1); LYMPHOCYTES ABSOLUTE AUTO 2.49 K/mm3 (0.84-5.20); LYMPHOCYTES PERCENT AUTO 31 % (21-46); MONOCYTES ABSOLUTE AUTO 0.64 K/mm3 (0.16-1.47); MONOCYTES PERCENT AUTO 8 % (4-13); Mean Corpuscular HGB 27.6 pg (26.0-34.0); Mean Corpuscular HGB Conc 31.6 g/dL (31.5-36.5); Mean Corpuscular Volume 88 fL (80-100); Mean Platelet Volume 11.1 fL (9.1-12.4); NEUTROPHILS ABSOLUTE AUTO 4.84 K/mm3 (1.96-9.15); NEUTROPHILS PERCENT AUTO 60 % (41-73); Platelet Count 186 K/mm3 (150-400); RDW Coefficient Variation 20.7 % (11.7-14.2); RDW Standard Deviation 64.8 fL (35.1-46.3); Red Blood Cell Count 4.49 M/mm3 (4.30-5.90); White Blood Cell Count 8.14 K/mm3 (4.00-11.30)
[2021-12-31 01:07] LABS: Alanine Aminotransfer (ALT/SGP 29 U/L (12-78); Albumin, Blood 2.2 g/dL (3.4-5.0); Albumin/Globulin Ratio 0.5 (0.8-1.8); Alk Phos 141 U/L (50-136); Anion Gap 6 mmol/L (6-16); Aspartate Aminotrans (AST/SGOT 23 U/L (12-37); Bilirubin, Total 1.2 mg/dL (0.1-1.0); Blood Urea Nitrogen 24 mg/dL (8-24); Bun/Creatinine Ratio 24.3 (12.0-20.0); CO2, Blood 32 mmol/L (21-32); Calcium, Blood 7.9 mg/dL (8.5-10.1); Chloride, Blood 97 mmol/L (98-108); Creatinine, Blood 0.99 mg/dL (0.60-1.20); Globulin, Blood 4.1 g/dL (2.2-4.0); Glomerular Filtration Rate >60 (60-); Glucose, Blood 109 mg/dL (70-99); Potassium, Blood 4.4 mmol/L (3.5-5.5); Sodium, Blood 135 mmol/L (136-145); Total Protein, Blood 6.3 g/dL (6.4-8.2)
[2021-12-31 01:36] LABS: Magnesium, Blood 1.9 mg/dL (1.6-2.4)
== END 2021-12-31 04:45 | disposition home or self-care (01) ==
LOC: ER 00:03
PROVIDERS: Student in an Organized Health Care Education/Training Program
DX: I48.91 Unspecified atrial fibrillation (principal); Z88.0 Allergy status to penicillin; Z79.899 Other long term (current) drug therapy; Z79.82 Long term (current) use of aspirin; Z79.4 Long term (current) use of insulin; Z79.52 Long term (current) use of systemic steroids; E11.9 Type 2 diabetes mellitus without complications; I10 Essential (primary) hypertension; I25.10 Atherosclerotic heart disease of native coronary artery without angina pectoris; F17.210 Nicotine dependence, cigarettes, uncomplicated
CPT/HCPCS: 36415; 71045; 80053; 83605; 83690; 83735; 84484; 85025; 93005; 93010; 96374; 99284-25; A9270

== ENCOUNTER 2022-01-19 07:31 | Inpatient (IN) | payer OTHER ==
[~2022-01-19] VITALS: Ht 147.3 cm; Wt 89.5 kg
[2022-01-19 08:35] LABS: BASOPHILS ABSOLUTE AUTO 0.02 K/mm3 (0.00-0.23); BASOPHILS PERCENT AUTO 0 % (0-2); EOSINOPHILS ABSOLUTE AUTO 0.12 K/mm3 (0.00-0.68); EOSINOPHILS PERCENT AUTO 1 % (0-6); Hematocrit 39.3 % (37.0-53.0); Hemoglobin 12.5 g/dL (13.5-17.5); IMMATURE GRAN ABSOLUTE AUTO 0.06 K/mm3 (0.00-0.10); IMMATURE GRAN PERCENT AUTO 1 % (0-1); LYMPHOCYTES ABSOLUTE AUTO 1.18 K/mm3 (0.84-5.20); LYMPHOCYTES PERCENT AUTO 10 % (21-46); MONOCYTES ABSOLUTE AUTO 0.53 K/mm3 (0.16-1.47); MONOCYTES PERCENT AUTO 4 % (4-13); Mean Corpuscular HGB 27.9 pg (26.0-34.0); Mean Corpuscular HGB Conc 31.8 g/dL (31.5-36.5); Mean Corpuscular Volume 88 fL (80-100); Mean Platelet Volume 9.6 fL (9.1-12.4); NEUTROPHILS ABSOLUTE AUTO 10.32 K/mm3 (1.96-9.15); NEUTROPHILS PERCENT AUTO 84 % (41-73); Platelet Count 234 K/mm3 (150-400); RDW Coefficient Variation 24.1 % (11.7-14.2); RDW Standard Deviation 75.7 fL (35.1-46.3); Red Blood Cell Count 4.48 M/mm3 (4.30-5.90); White Blood Cell Count 12.23 K/mm3 (4.00-11.30)
[2022-01-19 08:36] LABS: Albumin, Blood 2.2 g/dL (3.4-5.0); Albumin/Globulin Ratio 0.6 (0.8-1.8); Bilirubin, Total 1.2 mg/dL (0.1-1.0); Calcium, Blood 7.8 mg/dL (8.5-10.1); Creatinine, Blood 1.55 mg/dL (0.60-1.20); Globulin, Blood 3.9 g/dL (2.2-4.0); Magnesium, Blood 2.5 mg/dL (1.6-2.4); Phosphorus, Blood 3.4 mg/dL (2.5-4.9); Potassium, Blood 3.9 mmol/L (3.5-5.5); Total Protein, Blood 6.1 g/dL (6.4-8.2)
[2022-01-19 10:27] LABS: Influenza A, PCR NEGATIVE (NEGATIVE); Influenza B, PCR NEGATIVE (NEGATIVE); Resp Syncytial Virus, PCR NEGATIVE (NEGATIVE); SARS-Cov-2 (COVID-19) PCR, MMC NEGATIVE (NEGATIVE)
--- NOTE | 2022-01-19 18:30 | NUR ---
PT APPEARS TO HAVE BEEN SLEEPING SINCE ARRIVAL TO ROOM PCU15. EASILY AWOKEN TO NAME. PT ABLE TO SIT UP AND EAT SOME DINNER, FSBS NOTED TO BE 74, PT ENCOURAGED TO EAT TO KEEP HIS BLOOD SUGAR FROM BECOMING TOO LOW. WOUNDS DOCUMENTED AND CHARTED. SURGICAL CONSULT COMPLETED. PT IS NOT COMPLAINING OF PAIN OR DISCOMFORT. SEE DOCUMENTED VITAL SIGNS. CALL LIGHT IN REACH, WILL CONTINUE TO MONITOR AND GIVE REPORT TO ONCOMING SHIFT RN.
[2022-01-20 04:12] LABS: BASOPHILS ABSOLUTE AUTO 0.01 K/mm3 (0.00-0.23); BASOPHILS PERCENT AUTO 0 % (0-2); EOSINOPHILS ABSOLUTE AUTO 0.08 K/mm3 (0.00-0.68); EOSINOPHILS PERCENT AUTO 1 % (0-6); Hematocrit 34.1 % (37.0-53.0); Hemoglobin 10.9 g/dL (13.5-17.5); IMMATURE GRAN ABSOLUTE AUTO 0.05 K/mm3 (0.00-0.10); IMMATURE GRAN PERCENT AUTO 1 % (0-1); LYMPHOCYTES ABSOLUTE AUTO 1.09 K/mm3 (0.84-5.20); LYMPHOCYTES PERCENT AUTO 10 % (21-46); MONOCYTES ABSOLUTE AUTO 0.54 K/mm3 (0.16-1.47); MONOCYTES PERCENT AUTO 5 % (4-13); Mean Corpuscular HGB 28.1 pg (26.0-34.0); Mean Corpuscular Volume 88 fL (80-100); Mean Platelet Volume 9.5 fL (9.1-12.4); NEUTROPHILS ABSOLUTE AUTO 8.71 K/mm3 (1.96-9.15); NEUTROPHILS PERCENT AUTO 83 % (41-73); Platelet Count 176 K/mm3 (150-400); RDW Coefficient Variation 23.7 % (11.7-14.2); RDW Standard Deviation 75.6 fL (35.1-46.3); Red Blood Cell Count 3.88 M/mm3 (4.30-5.90); White Blood Cell Count 10.48 K/mm3 (4.00-11.30)
[2022-01-20 04:30] LABS: Albumin, Blood 1.8 g/dL (3.4-5.0); Albumin/Globulin Ratio 0.5 (0.8-1.8); Bun/Creatinine Ratio 38.5 (12.0-20.0); Calcium, Blood 7.2 mg/dL (8.5-10.1); Creatinine, Blood 1.35 mg/dL (0.60-1.20); Globulin, Blood 3.3 g/dL (2.2-4.0); Potassium, Blood 3.5 mmol/L (3.5-5.5); Total Protein, Blood 5.1 g/dL (6.4-8.2)
--- NOTE | 2022-01-20 07:44 | NUR ---
SHIFT SUMMARY PT AOX3 T/O SHIFT, CBG LOW THIS AM WITH MORNING LABS AND WORSE ON RECHECK. NOTIFIED PROVIDER, ORDER TO GIVE 500 MLS OF D5 FOR CBG D/T PT NPO FOR PROCEDURE TODAY. PT'S CBG IMPROVES ON RECHECK. CONCERN FOR CONTINUED LOW D/T LONG ACTING INSULIN ADMIN AND PT NPO TODAY FOR PROCEDURE. PT ALSO HAD SMALL BM THAT WAS FORMED ON SHIFT. CALLS APPROPRIATELY. Q2 TURNS T/O SHIFT.
--- NOTE | 2022-01-20 13:57 | NUR ---
PT TO SURGERY AT THIS TIME.
--- NOTE | 2022-01-20 17:29 | NUR ---
PT RETURNED TO PCU15 POST OP. R BKA REVISION, PT RETURNED WITH R STUMP WRAPPED IN TROY WRAP WITH A WOUND VAC IN PLACE, +SUCTION NO AIR LEAK NOTED. PT AWAKE, BUT STILL UNDER THE EFFECTS OF ANETHESIA AND SLIGHTLY CONFUSED. POST OP VITALS INITIATED. SURGICAL SITE DRESSING C/D/I. WILL CONTINUE TO MONITOR CLOSELY POST OP.
--- NOTE | 2022-01-20 18:28 | NUR ---
DR HENLEY NOTIFIED OF PT'S HR 130-140s AFIB SINCE RETURNING FROM SURGERY. NEW ORDERS RECEIVED.
[2022-01-21 03:49] LABS: BASOPHILS ABSOLUTE AUTO 0.01 K/mm3 (0.00-0.23); BASOPHILS PERCENT AUTO 0 % (0-2); EOSINOPHILS PERCENT AUTO 0 % (0-6); Hematocrit 37.2 % (37.0-53.0); Hemoglobin 11.6 g/dL (13.5-17.5); IMMATURE GRAN ABSOLUTE AUTO 0.08 K/mm3 (0.00-0.10); IMMATURE GRAN PERCENT AUTO 1 % (0-1); LYMPHOCYTES ABSOLUTE AUTO 0.49 K/mm3 (0.84-5.20); LYMPHOCYTES PERCENT AUTO 4 % (21-46); MONOCYTES ABSOLUTE AUTO 0.22 K/mm3 (0.16-1.47); MONOCYTES PERCENT AUTO 2 % (4-13); Mean Corpuscular HGB Conc 31.2 g/dL (31.5-36.5); Mean Corpuscular Volume 90 fL (80-100); Mean Platelet Volume 9.8 fL (9.1-12.4); NEUTROPHILS ABSOLUTE AUTO 10.74 K/mm3 (1.96-9.15); NEUTROPHILS PERCENT AUTO 93 % (41-73); Platelet Count 216 K/mm3 (150-400); RDW Coefficient Variation 23.6 % (11.7-14.2); RDW Standard Deviation 76.3 fL (35.1-46.3); Red Blood Cell Count 4.14 M/mm3 (4.30-5.90); White Blood Cell Count 11.54 K/mm3 (4.00-11.30)
[2022-01-21 04:12] LABS: Bun/Creatinine Ratio 38.8 (12.0-20.0); Calcium, Blood 7.5 mg/dL (8.5-10.1); Creatinine, Blood 1.21 mg/dL (0.60-1.20); Potassium, Blood 4.1 mmol/L (3.5-5.5)
--- NOTE | 2022-01-21 06:29 | NUR ---
SUMMARY PT A&O X3, HE HAS EPISODES OF FORGETFULNESS, REORIENTED PRN, HR HAS BEEN UNCONTROLLED THROUGH THE NIGHT. PO METOPROLOL WAS HELD @ 2100 DUE TO SBP <100, IT WAS LATER GIVEN DUE TO HR >130'S, & INCREASED BP. HR REMAINED ELEVATED, IV METOPROLOL WAS GIVEN X2 DOSES, HR IS CURRENTLY AFIB 110-130, OCCASIONAL CP NOTED, ZOFRAN FOR NAUSEA, RESP UNLABORED, O2 SAT >95% ON RA, RESP UNLABORED, R. BKA DRG C/D/I, WOUND VAC IS IN PLACE, CANNISTER CHANGED THIS AM DUE TO A BLOCKSGE, UNBLE TO DETERMINE OUTPUT. Q2 TURNS PROVIDED, CALL LIGHT IN REACH
[2022-01-21 19:24] LABS: Vancomycin, Trough 12.9 ug/mL (5.0-10.0)
--- NOTE | 2022-01-22 00:01 | NUR ---
CARE ASSUMPTION: PATIENT ASLEEP IN BED. WOUND VAC DRAINING SANGUINOUS FLUID. MARKED LINE FOR PREVIOUS SHIFT OUTPUT. HR 110-120S. DINNER UNTOUCHED AT BEDSIDE.
[2022-01-22 04:12] LABS: BASOPHILS ABSOLUTE AUTO 0.01 K/mm3 (0.00-0.23); BASOPHILS PERCENT AUTO 0 % (0-2); EOSINOPHILS ABSOLUTE AUTO 0.01 K/mm3 (0.00-0.68); EOSINOPHILS PERCENT AUTO 0 % (0-6); Hematocrit 32.4 % (37.0-53.0); IMMATURE GRAN ABSOLUTE AUTO 0.07 K/mm3 (0.00-0.10); IMMATURE GRAN PERCENT AUTO 1 % (0-1); LYMPHOCYTES ABSOLUTE AUTO 1.32 K/mm3 (0.84-5.20); LYMPHOCYTES PERCENT AUTO 10 % (21-46); MONOCYTES ABSOLUTE AUTO 0.75 K/mm3 (0.16-1.47); MONOCYTES PERCENT AUTO 6 % (4-13); Mean Corpuscular HGB 27.9 pg (26.0-34.0); Mean Corpuscular HGB Conc 30.9 g/dL (31.5-36.5); Mean Corpuscular Volume 90 fL (80-100); Mean Platelet Volume 9.5 fL (9.1-12.4); NEUTROPHILS ABSOLUTE AUTO 11.53 K/mm3 (1.96-9.15); NEUTROPHILS PERCENT AUTO 84 % (41-73); Platelet Count 193 K/mm3 (150-400); RDW Coefficient Variation 23.2 % (11.7-14.2); RDW Standard Deviation 75.7 fL (35.1-46.3); Red Blood Cell Count 3.59 M/mm3 (4.30-5.90); White Blood Cell Count 13.69 K/mm3 (4.00-11.30)
[2022-01-22 04:29] LABS: Anion Gap 6 mmol/L (6-16); Blood Urea Nitrogen 43 mg/dL (8-24); Bun/Creatinine Ratio 37.4 (12.0-20.0); CO2, Blood 27 mmol/L (21-32); Calcium, Blood 7.8 mg/dL (8.5-10.1); Chloride, Blood 102 mmol/L (98-108); Creatinine, Blood 1.15 mg/dL (0.60-1.20); Glomerular Filtration Rate >60 (60-); Glucose, Blood 105 mg/dL (70-99); Potassium, Blood 4.4 mmol/L (3.5-5.5); Sodium, Blood 135 mmol/L (136-145)
--- NOTE | 2022-01-22 06:07 | NUR ---
SHIFT SUMMARY: PATIENT A&O X3, WOUND VAC DRAINING SEROSANGUINOUS FLUID, AFIB WITH HR 100-120S, AND O2 >95% ON RA-2L NC. PATIENT DOES NOT USE CALL LIGHT APPROPRIATELY, STATES FEELING WORSE THAN BEFORE SURGERY AND VERY HUNGRY. AWAKE MOST OF THE NIGHT. MEDICATED FOR HR >130S - SEE EMAR. PATIENT RESTING WITH BED LOW AND CALL LIGHT IN REACH. WILL CONTINUE TO MONITOR AND REPORT TO ONCOMING RN.
--- NOTE | 2022-01-22 17:53 | NUR ---
SHIFT SUMMARY PT HAS BEEN RESTING IN BED, SLEEPING OFF AND ON. PT HAS NOT ALWAYS COOPERATED WITH CARES. PT HAS BEEN LESS COOPERATIVE WITH NURSE AIDE THAN WITH THIS RN. PT HAS BEEN DIFFICULT TO COMMUNICATE WITH AT TIMES, SOFT SPOKEN, MUMBLING SPEECH. PT HAS DENIED C/O PAIN AND WILL CALL TO ASSIST WITH REPOSITIONING FOR DISCOMFORT. BP OF 85/67(74) TAKEN AT 16:29, PT DENIED FEELING LIGHT HEADED OR DIZZY, REPOSITIONED PT AND RECHECKED AT 17:45, 82/68(74). HEART RATE HAS MAINTAINED 110'S A.FIB.
--- NOTE | 2022-01-22 18:47 | NUR ---
WOUND VAC CHANGED 01/22/22. Mepitel to wound bed, black foam. Vac st continuous @120mmhg. Photo and assessment in chart
--- NOTE | 2022-01-22 22:31 | NUR ---
CARE ASSUMPTION: PATIENT IN BED, A&O X2 - BELIEVED DATE TO BE "MAY 08, 1999" AND THAT HE WAS IN THE HOSPITAL FOR A HEART ATTACK AND ANGIO. TELE WAS D/C'D PER ORDERS. PATIENT PICKING AT SCABS ON ARMS AND FACE AND HAS PULLED OFF HIS SPO2 MONITOR. WAS HYPOGLYCEMIC UPON TESTING AND WAS GIVEN AN ORANGE JUICE AND SNACKS. CBG AT NEXT TWO TESTINGS WERE 88 AND 89. NEW ORDERS FOR D5 INFUSION. CONDOM CATH IN PLACE AND NEW BURR AND BLANKETS PROVIDED. BED LOW WITH CALL LIGHT IN PLACE.
--- NOTE | 2022-01-22 23:34 | NUR ---
CHANGE IN MENTATION AT 2320 (MILD HALLUCINATION). D5 RUNNING AT THIS TIME AND BLOOD GLUCOSE 70. VS WNL. WILL CONTINUE TO MONITOR AND RECHECK. PATIENT IN BED EATING POPSCICLE AND PUDDING CUP.
--- NOTE | 2022-01-23 05:44 | NUR ---
SHIFT SUMMARY: PATIENT'S MENTATION HAS IMPROVED AND WAS ABLE TO SLEEP AFTER 0200. NO DRAINAGE IN WOUND VAC AT TIME OF THIS NOTE. D5 RUNNING PER EMAR HAS IMPROVED CBGS; PATIENT HAD POPSCICLE AND PUDDING CUP AROUND MIDNIGHT WELL. PATIENT WAS PLEASANT AND COOPERATIVE WITH CARE. CONDOM CATH WAS PUT IN PLACE TO MINIMIZE BED MOISTURE, NO OUTPUT AT THIS TIME AND BRIEF IS DRY. GREENS KEEPER BLADDER SCANNED 542 MLS, PATIENT DENIES NEEDING TO URINATE, AND HAS BEEN ENCOURAGED TO TRY. WILL CONTINUE TO MONITOR AND REPORT TO ONCOMING RN.
--- NOTE | 2022-01-23 17:45 | NUR ---
SHIFT SUMMARY PT HAS BEEN SLEEPING OFF AND ON THROUGHOUT THE DAY. PT HAS C/O MINOR DISCOMFORT THAT WAS RESOLVED WITH REPOSITIONING AT SEVERAL OCCASIONS. SBP HAS RANGED 86-110. PT HAS BEEN ASYMPTOMATIC DURING PERIODS OF LOW BP. PT HAS HAD VERY LITTLE APPETITE. THIS RN HAS OFFERED THE PT MANY OPTIONS FOR FOOD BROUGHT REQUESTED FOOD TO PT ROOM. WOUND VAC IS INTACT WITH NO OUTPUT NOTED. THERE ARE NO ACUTE CHANGES TO PT CONDITION.
--- NOTE | 2022-01-23 21:28 | NUR ---
CARE ASSUMPTION: PATIENT IN BED ORIENTED TOWARDS WINDOW. VS WNL ON RA. DENIES SOB, CHEST PAIN. REPORTS MILD DISCOMFORT THAT IS ALLIEVIATED WITH REPOSITIONING. WOUND VAC DRAINING SCANT SEROSANGUINOUS FLUID. MEDICATED PER EMAR - PATIENT ONLY DRANK 1/2 ERIS. LEFT AT BEDSIDE WITH INSTRUCTIONS TO DRINK ALL AND LABELED IT. PATIENT DID NOT EAT DINNER; PROVIDED ICE CREAM CUP. PATIENT RESTING WITH LIGHTS OFF NOW. CALL LIGHT IN REACH AND INSTRUCTED IN USE.
--- NOTE | 2022-01-24 06:29 | NUR ---
SHIFT SUMMARY: DENIES SOB OR CHEST PAIN. PERIODICALLY REPORTS PHANTOM PAIN IN LEGS. WOUND VAC DRAINING SCANT SEROSANGUINOUS FLUID. PATIENT SLEPT INTERMITTENTLY T/O NIGHT. INCONSISTENTLY MAKES NEEDS KNOWN - CALLS OUT, LOSES CALL LIGHT OR TRIES TO USE CALL LIGHT TO ADJUST BED. REDIRECTION AND FREQUENT REORIENTATION TO CALL LIGHT ARE HELPFUL. PATIENT COOPERATIVE WITH CARE AND APPRECIATIVE OF STAFF. WILL CONTINUE TO MONITOR AND REPORT TO ONCOMING RN.
[2022-01-24] MEDS ORDERED: SENN187 PO (10:04)
[2022-01-24] MEDS ORDERED: SULTRIDS PO (10:05)
[2022-01-24] MEDS ORDERED: VISBIOME 112.51 EACH PO (10:06)
[2022-01-24] MEDS ORDERED: JUVEN PACKET1 EAC3 PO (10:06)
[2022-01-24] MEDS ORDERED: Acetaminophen325 M1 PO (10:07)
[2022-01-24] MEDS ORDERED: INSULANPEN SC (10:07)
--- NOTE | 2022-01-24 11:11 | NUR ---
Spiritual Care Visit. Pt. is a re-admit, and is known to this webbing supervisor. Pt. is in bewd and welcomes my visit. Pt. is unsettled by not remembering being brought back to the hospital, but verbalizes that he believes he will return to his care facility. Listen empathetically. Pt. displays evidence of abandoning hope for a nominal recovery. Provided a calming influence, and gave pastoral student counsellor. Affirmed that Pt. had been gifted with life. Prayed with Pt. Pt. verbalized gratitude for the spiritual care visit, and asked this webbing supervisor to return.
--- NOTE | 2022-01-24 13:50 | NUR ---
Patient discharged to [facility]. VSS. Patient left xie in wheelchair via medical transport. Patient had wound vac intervention in place to the RLE. Patient was medicated prior to discharge for RLE pain with 650 mg PO acetaminophen. Report called to Moshe at [facility] at 13:35. Patient remaines on MRSA precautions.
--- NOTE | 2022-01-24 18:15 | NUR ---
theraputic visit with patient will follow up and palliative care team.
== END 2022-01-24 13:00 | DRG 501 ==
LOC: ER 07:31 → PCU 07:32
PROVIDERS: Internal Medicine; Orthopaedic Surgery; Physician Assistant; ADMIT Internal Medicine
PROC: 3E03329 Introduction of Other Anti-infective into Peripheral Vein, Percutaneous Approach (ICD-10-PCS; 2022-01-20)
PROC: 0KBS0ZZ Excision of Right Lower Leg Muscle, Open Approach (ICD-10-PCS; principal; 2022-01-20 14:00)
DX: T87.43 Infection of amputation stump, right lower extremity (principal); M31.0 Hypersensitivity angiitis; N17.9 Acute kidney failure, unspecified; E87.1 Hypo-osmolality and hyponatremia; J90 Pleural effusion, not elsewhere classified; I48.19 Other persistent atrial fibrillation; E11.52 Type 2 diabetes mellitus with diabetic peripheral angiopathy with gangrene; M86.18 Other acute osteomyelitis, other site; R78.81 Bacteremia; Z66 Do not resuscitate; E86.0 Dehydration; R11.2 Nausea with vomiting, unspecified; F32.A Depression, unspecified; J44.9 Chronic obstructive pulmonary disease, unspecified; E11.22 Type 2 diabetes mellitus with diabetic chronic kidney disease; N18.9 Chronic kidney disease, unspecified; I25.10 Atherosclerotic heart disease of native coronary artery without angina pectoris; F17.210 Nicotine dependence, cigarettes, uncomplicated; I12.9 Hypertensive chronic kidney disease with stage 1 through stage 4 chronic kidney disease, or unspecified chronic kidney disease; D72.829 Elevated white blood cell count, unspecified; Z20.822 Contact with and (suspected) exposure to COVID-19; R79.89 Other specified abnormal findings of blood chemistry; I95.9 Hypotension, unspecified; Z79.4 Long term (current) use of insulin; Z88.0 Allergy status to penicillin; Z79.2 Long term (current) use of antibiotics; I25.2 Old myocardial infarction; Z95.1 Presence of aortocoronary bypass graft; Z89.612 Acquired absence of left leg above knee; Z89.611 Acquired absence of right leg above knee; Z95.5 Presence of coronary angioplasty implant and graft; Z79.01 Long term (current) use of anticoagulants; Z79.899 Other long term (current) drug therapy; Z79.82 Long term (current) use of aspirin; Z59.02 Unsheltered homelessness; B95.62 Methicillin resistant Staphylococcus aureus infection as the cause of diseases classified elsewhere
CPT/HCPCS: 0241U; 36415; 71045; 73590; 73701; 80048; 80053; 80202; 82947; 83605; 83735; 84100; 84145; 84484; 85025; 87040; 87071; 87075; 87077; 87147; 87186; 87205; 88307; 94762; 96361; 96374; 96375; 99285-25; A9270; J0692; J0696; J1100; J1160; J1815; J2370; J2405; J2704; J3010; J3370; J7030; J7042; J7060; J7120; J7512; Q9967

== ENCOUNTER 2022-01-29 12:18 | Inpatient (IN) | payer OTHER ==
[~2022-01-29] VITALS: Ht 152.4 cm; Wt 79.4 kg
[~2022-01-29 12:18] MED LIST changes: +Acetaminophen325 M1 PO; +JUVEN PACKET1 EAC3 PO; +SENN187 PO; +SULTRIDS PO
[2022-01-29 13:20] LABS: Hematocrit 33.3 % (37.0-53.0); Hemoglobin 10.4 g/dL (13.5-17.5); Mean Corpuscular HGB 28.6 pg (26.0-34.0); Mean Corpuscular HGB Conc 31.2 g/dL (31.5-36.5); Mean Corpuscular Volume 92 fL (80-100); Mean Platelet Volume 9.9 fL (9.1-12.4); Platelet Count 276 K/mm3 (150-400); RDW Coefficient Variation 23.9 % (11.7-14.2); RDW Standard Deviation 79.8 fL (35.1-46.3); Red Blood Cell Count 3.64 M/mm3 (4.30-5.90); White Blood Cell Count 9.42 K/mm3 (4.00-11.30)
[2022-01-29 13:39] LABS: Albumin, Blood 2.3 g/dL (3.4-5.0); Albumin/Globulin Ratio 0.6 (0.8-1.8); Bun/Creatinine Ratio 42.4 (12.0-20.0); Calcium, Blood 8.6 mg/dL (8.5-10.1); Creatinine, Blood 1.44 mg/dL (0.60-1.20); Globulin, Blood 3.9 g/dL (2.2-4.0); Potassium, Blood 5.3 mmol/L (3.5-5.5); Total Protein, Blood 6.2 g/dL (6.4-8.2)
[2022-01-29 13:57] LABS: BASOPHILS PERCENT MAN 0 % (0-2); EOSINOPHILS PERCENT MAN 0 % (0-6); LYMPHOCYTES ABSOLUTE MAN 0.28 K/mm3 (0.84-5.20); LYMPHOCYTES PERCENT MAN 3 % (21-46); MONOCYTES ABSOLUTE MAN 0.09 K/mm3 (0.16-1.47); MONOCYTES PERCENT MAN 1 % (4-13); NEUTROPHILS ABSOLUTE MAN 9.04 K/mm3 (1.96-9.15); SEG NEUTROPHILS PERCENT MAN 96 % (41-73); TOTAL CELLS COUNTED 100
[2022-01-29 15:13] LABS: Source, Urine Fem Cath
[2022-01-29 15:22] LABS: Appearance, Urine Hazy (Clear); Bilirubin, Urine Neg (Neg); Blood, Urine 4+ (Neg); Color, Urine Amber (P-Yellow); Glucose Qualitative, Urine Neg (Neg); Ketones, Urine 1+ (Neg); Leukocyte Esterase, Urine 1+ (Neg); Nitrite, Urine Neg (Neg); Protein, Urine 3+ (Neg); Urobilinogen, Urine NORM (Normal)
[2022-01-29 15:37] LABS: Amorphous Mod (0-Heavy); Bacteria Many /hpf; Squamous Epithelial Cells Rare /hpf (Few)
--- NOTE | 2022-01-29 18:46 | NUR ---
SHIFT SUMMARY: PATIENT ADMIT TO PCU AT 1700. ALERT AND ORIENTED X2-3. DENIES NUMBNESS/TINGLING. SPEECH GARBELED AND HARD TO UNDERSTAND. LEFT AKA, RIGHT RECENT BKA WITH WOUND VAC IN PLACE. WOUND VAC DRESSING INTACT, NO LEAKS NOTED SET TO 120 MMHG CONTINUOUS. WOUND VAC CONSULT IN ORDER AND PLAN TO SEE PATIENT IN AM. ON 1-2 L NASAL CANNULA SATING MID 90'S. LUNGS SOUNDING CLEAR AND DIM IN BASES. PLAN FOR THOROCENTESIS IN AM. LAST DOSE OF XERALTO 5/15 AT 8PM. ABDOMIN DISTENDED, PATIENT STATES NORMAL. ATTENDS IN PLACE. JAMES CATH IN PLACE DRAINING URINE TO GRAVITY. URINE CLEAR AND BRIGETTE. Q2 TURNING AND NEEDED. RIGHT BKA ELEVATED. SKIN OVERALL SCATTERED WITH SCABS. LEFT UPPER ARM WEEPING EDEMA. VENOUS DUPLEX COMPLETED ON LEFT UPPER ARM, CAFE ASSISTANT REPORTED TO THIS RN, NEGATIVE FOR DVT. HR UPON ADMIT AVERAGING 130'S. PRN 5MG LOPRESSOR GIVEN X1. HR AVERAGING 100-110'S AT THIS TIME. CALL LIGHT IN REACH. DENIES NEEDS AT THIS TIME. WILL CONTINUE TO MONITOR AND REPORT OFF TO ONCOMING RN. ONCE
--- NOTE | 2022-01-30 04:23 | NUR ---
SHIFT SUMMARY PT REMAINS IN AFIB 120-140S DESPITE IVP LOPRESSOR. PT REMAINS PLEASANTLY CONFUSED AND IS COOPERATIVE. REPOSITIONING Q2 HOURS. JAMES INTACT. NPO SINCE MIDNIGHT FOR THORACENTESIS PROCEDURE TODAY. IVF INFUSING PER ORDERS. RIGHT STUMP WOUND VAC INTACT AND FOAM COMPRESSED WITH RED DRAINAGE NOTED. CALL LIGHT WITHIN REACH. BED ALARM IN PLACE FOR SAFETY.
[2022-01-30 05:55] LABS: BASOPHILS PERCENT AUTO 0 % (0-2); EOSINOPHILS PERCENT AUTO 0 % (0-6); Hematocrit 31.7 % (37.0-53.0); Hemoglobin 9.7 g/dL (13.5-17.5); IMMATURE GRAN ABSOLUTE AUTO 0.04 K/mm3 (0.00-0.10); IMMATURE GRAN PERCENT AUTO 1 % (0-1); LYMPHOCYTES ABSOLUTE AUTO 0.96 K/mm3 (0.84-5.20); LYMPHOCYTES PERCENT AUTO 12 % (21-46); MONOCYTES ABSOLUTE AUTO 0.51 K/mm3 (0.16-1.47); MONOCYTES PERCENT AUTO 6 % (4-13); Mean Corpuscular HGB 27.7 pg (26.0-34.0); Mean Corpuscular HGB Conc 30.6 g/dL (31.5-36.5); Mean Corpuscular Volume 91 fL (80-100); NEUTROPHILS ABSOLUTE AUTO 6.66 K/mm3 (1.96-9.15); NEUTROPHILS PERCENT AUTO 82 % (41-73); Platelet Count 247 K/mm3 (150-400); RDW Coefficient Variation 23.4 % (11.7-14.2); RDW Standard Deviation 77.9 fL (35.1-46.3); White Blood Cell Count 8.17 K/mm3 (4.00-11.30)
[2022-01-30 06:02] LABS: International Normalized Ratio 1.55; Prothrombin Time Results 15.8 Sec (9.7-11.5)
[2022-01-30 06:16] LABS: Albumin, Blood 2.2 g/dL (3.4-5.0); Albumin/Globulin Ratio 0.6 (0.8-1.8); Bilirubin, Total 0.8 mg/dL (0.1-1.0); Bun/Creatinine Ratio 42.3 (12.0-20.0); Calcium, Blood 8.2 mg/dL (8.5-10.1); Creatinine, Blood 1.49 mg/dL (0.60-1.20); Globulin, Blood 3.7 g/dL (2.2-4.0); Magnesium, Blood 2.1 mg/dL (1.6-2.4); Total Protein, Blood 5.9 g/dL (6.4-8.2)
[2022-01-30 11:03] LABS: Automated BF RBC Count 0.002 M/mm3 (0-0); Automated BF WBC Count 0.202 K/mm3 (0-999); Body Fluid WBC Count 202 /mm3 (0-999)
[2022-01-30 11:22] LABS: Lactate Dehydrogenase, Body Fl 54 U/L
[2022-01-30 11:36] LABS: Total Cell Count, Body Fluid 100
[2022-01-30 11:37] LABS: Color, Body Fluid Yellow (None-Yellow)
[2022-01-30 11:40] LABS: Appearance, Body Fluid Hazy (Clear)
--- NOTE | 2022-01-30 13:19 | NUR ---
Wound vac changed 01/30/22. Wound assessment and photo in chart. Next change due 02/01/22.
--- NOTE | 2022-01-30 13:37 | NUR ---
WOUND VAC CHANGED . ORDER RECIEVED FROM DR. SAM ZAVALA TO LEAVE IN PLACE UNTIL Saturday02/02/22 TO GET PT BACK ON SAT, SAT, SAT SCHEDULE
--- NOTE | 2022-01-30 15:57 | NUR ---
Spiritual Care Visit. Pt. is awake in bed and welcomes my visit. Pt. is difficult to understand, certainly (more so than in past visits.) Pt. displayed evidence of being resigned to his situation. Pt. is thritsy , but displays evidence of having learned to cope without drinking orally. Pt. verbalized not knowing his present prognosis. Listen empathetically. Prayed with Pt. Pt. verbalized gratitude for the spiritual care visit.
--- NOTE | 2022-01-30 16:43 | NUR ---
PT HAD L THORACENTESIS TODAY WITH 1L OF FLUID REMOVED AND SENT TO LAB. ABLE TO WEAN PT OFF 02 POST PROCEDURE, NOW ON RN SPO2>95%, RESPS EVEN AND UNLABORED. PT APPEARED TO BE SLEEPING SINCE RETURNING FROM THE THORACENTESIS, DID NOT EAT HIS LUNCH. PRINCIPAL ASSOCIATE IN TO SEE PT, TAKE PHOTOS OF WOUND AND CHANGE OUT WOUND VAC/DRESSING. PHOTO IN CHART OF COCCYX WOUND WELL THIS SHIFT. PT HAS SCATTERED SCABS IN VARIOUS STAGES OF HEALING T/O HIS BODY, HE HAS BEEN NOTED TO PICK OFF THESE SCABS AT TIMES. DR VARGAS NOTIFIED OF PT'S UO OF 100MLS FOR THIS SHIFT AND HR REMAINING IN THE 110-130s, HE STATES HE WILL REVIEW THE CHART AND PLACE ORDERS NEEDED. NO OTHER EVENTS T/O THE SHIFT, PT RESTING QUIETLY IN BED AT THIS TIME, EYES CLOSED, CALL LIGHT IN REACH. WILL CONTINUE TO MONITOR AND GIVE REPORT TO NOC SHIFT RN.
--- NOTE | 2022-01-30 22:07 | NUR ---
Assumed care 1900. Pt was sleeping and lethargic, but easily waken up. Took oral pill without any issue. Only oriented x1. VSS on RA, oxygen high 90s, Wound vac in place on right leg where the BKA is. IV fluids running 75ml/hr. HR jumps up th 130-140s briefly, but then will drop to 100-110s, will give IV metoprolol per orders. Lemus in place. CBG in 130s, held evening long acting insulin due to pt not eating dinner. Will continue to monitor.
--- NOTE | 2022-01-30 22:55 | NUR ---
HR SUSTAINING >120, MAINLY 120-130S, PRN METOPROLOL GIVEN PER ORDERS. BP 116/77 WITH MAP OF 90.
[2022-01-31 07:47] LABS: BASOPHILS PERCENT AUTO 0 % (0-2); EOSINOPHILS PERCENT AUTO 0 % (0-6); Hematocrit 31.7 % (37.0-53.0); Hemoglobin 9.9 g/dL (13.5-17.5); IMMATURE GRAN ABSOLUTE AUTO 0.05 K/mm3 (0.00-0.10); IMMATURE GRAN PERCENT AUTO 1 % (0-1); LYMPHOCYTES ABSOLUTE AUTO 0.64 K/mm3 (0.84-5.20); LYMPHOCYTES PERCENT AUTO 6 % (21-46); MONOCYTES ABSOLUTE AUTO 0.46 K/mm3 (0.16-1.47); MONOCYTES PERCENT AUTO 5 % (4-13); Mean Corpuscular HGB 28.3 pg (26.0-34.0); Mean Corpuscular HGB Conc 31.2 g/dL (31.5-36.5); Mean Corpuscular Volume 91 fL (80-100); Mean Platelet Volume 10.5 fL (9.1-12.4); NEUTROPHILS ABSOLUTE AUTO 8.93 K/mm3 (1.96-9.15); NEUTROPHILS PERCENT AUTO 89 % (41-73); Platelet Count 245 K/mm3 (150-400); RDW Coefficient Variation 23.5 % (11.7-14.2); RDW Standard Deviation 77.8 fL (35.1-46.3); White Blood Cell Count 10.08 K/mm3 (4.00-11.30)
--- NOTE | 2022-01-31 07:57 | NUR ---
PT IS ORIENTED TO SELF AND SITUATION, STATES THAT HE DIDN'T GET MUCH SLEEP OVERNIGHT. PT WILL MAKE ILLOGICAL STATEMENTS AT TIMES. PT'S BLOOD PRESSURE IS LOW, DR. VARGAS NOTIFIED, TM.
[2022-01-31 07:58] LABS: Albumin, Blood 2.1 g/dL (3.4-5.0); Albumin/Globulin Ratio 0.6 (0.8-1.8); Bilirubin, Total 0.7 mg/dL (0.1-1.0); Creatinine, Blood 1.5 mg/dL (0.60-1.20); Globulin, Blood 3.5 g/dL (2.2-4.0); Potassium, Blood 4.5 mmol/L (3.5-5.5); Total Protein, Blood 5.6 g/dL (6.4-8.2)
[2022-01-31 09:47] LABS: Vancomycin, Trough 19.8 ug/mL (5.0-10.0)
[2022-01-31 09:59] LABS: Base Excess Venous -8.8 mmol/L; Bicarbonate Venous 17.3 mmol/L (24.0-30.0); PCO2 Venous 43.3 mmHg (38-42); pH Blood Venous 7.24 (7.34-7.37)
--- NOTE | 2022-01-31 10:49 | NUR ---
Spiritual Care Visit(s) - Rapid Response - EOL Rapid response was call fro the Pt. @ approx. 9:25am. Chemist Physical James made the initial contact and then passed Pt. on to this cheesemaking laborer. Palliative Care searched hard for info on the next of kin, but could find no good phone #'s. Pt. was stabilized and moved to ICU2 at 10:00am. Soon after arriving in ICU, pt. coded. Medical team's attempts to revive Pt. were unsuccessful. This cheesemaking laborer and Cass from Palliative Care honored the Pt. with EOL Prayer and scripture reading. 10:33am TOD was officially called. The Pt. is a and Pt. was full code, with no obvious people (family) support outside the hosptial. There was no home chosen. Confirmed that The ICU nurses will contact the appropriate home.
--- NOTE | 2022-01-31 10:55 | NUR ---
TECHNICAL SERVICES SPECIALIST CALLED THIS RN INTO ROOM STATING THAT THE PATIENT WAS NOT BREATHING. THIS RN ENTERED THE ROOM AND THE PATIENT WAS NON-RESPONSIVE TO STERNAL RUBS, PT'S BREATHING WAS APNEIC AND AGONAL. CALLED CHARGE NURSE MILTON RN TO ALERT TEAM FOR ADDITIONAL ASSISTANCE. THIS RN STARTED BAGGING THE PATIENT. RAPID RESPONSE TEAM ARRIVED, RT TOOK OVER AIRWAY MANAGEMENT. THIS RN CALLED DR. VARGAS TO BEDSIDE. PT TRANSFERED TO ICU 2 AND UPON ARRIVAL STARTED VOMITING, SUCTIONING APPLIED, RT MANAGING AIRWAY. PULSE LOST, CPR INITIATED.
--- NOTE | 2022-01-31 10:59 | NUR ---
PT CODED UPON ARRIVAL... PT ARRIVED ON THE UNIT AT 1005 FROM PCU, THE PT'S BED WAS ENTERING THE ROOM THE PT STARTED TO VOMIT COFFEE GROUND EMISIS, THE PT'S MOUTH WAS SUCTIONED. THE PT WAS AWAKE AND ALERT DURING THIS TIME, HE WAS VERY PALE AND CLAMY. THE PT WAS PULLED OVER TO THE ICU BED, THE PT WAS BEING TURNED TO REMOVE SOILED LINENS THE PT STARTED TO VOMIT COFFEE GROUND EMISIS AGAIN, THE PT WAS BEING TURNED TO SUCTION HIS MOUTH THE PT BECAME APNEIC AND NO PULSE COULD BE FOUND. CPR WAS STARTED AND A CODE BLUE WAS CALLED AT 1008. PLEASE SEE THE CODE SHEET FOR MORE INFORMATION. PALLIATIVE CARE RN IN THE ROOM DURING THE CODE, THE PT WAS PRONOUNCED AT 1032. FINAL DISCHARGE STARTED BY CHARGE NURSE.
== END 2022-01-31 10:32 | DRG 308 ==
LOC: ER 12:18 → ICUE 12:19 → PCU 12:19 → ICUE 01-31 10:00
PROVIDERS: Emergency Medicine; Internal Medicine; Nurse Practitioner Acute Care; ADMIT Hospitalist
PROC: 5A12012 Performance of Cardiac Output, Single, Manual (ICD-10-PCS; principal; 2022-01-29)
PROC: 5A09457 Assistance with Respiratory Ventilation, 24-96 Consecutive Hours, Continuous Positive Airway Pressure (ICD-10-PCS; 2022-01-29)
PROC: 0BH18EZ Insertion of Endotracheal Airway into Trachea, Via Natural or Artificial Opening Endoscopic (ICD-10-PCS; 2022-01-29)
PROC: 0W9B30Z Drainage of Left Pleural Cavity with Drainage Device, Percutaneous Approach (ICD-10-PCS; 2022-01-30)
DX: I48.20 Chronic atrial fibrillation, unspecified (principal); I50.23 Acute on chronic systolic (congestive) heart failure; G92.8 Other toxic encephalopathy; N17.9 Acute kidney failure, unspecified; J91.8 Pleural effusion in other conditions classified elsewhere; I13.0 Hypertensive heart and chronic kidney disease with heart failure and stage 1 through stage 4 chronic kidney disease, or unspecified chronic kidney disease; T87.43 Infection of amputation stump, right lower extremity; E11.51 Type 2 diabetes mellitus with diabetic peripheral angiopathy without gangrene; F17.210 Nicotine dependence, cigarettes, uncomplicated; R09.02 Hypoxemia; E66.01 Morbid (severe) obesity due to excess calories; L89.151 Pressure ulcer of sacral region, stage 1; I25.10 Atherosclerotic heart disease of native coronary artery without angina pectoris; I46.2 Cardiac arrest due to underlying cardiac condition; N18.9 Chronic kidney disease, unspecified; I48.91 Unspecified atrial fibrillation; Z68.34 Body mass index [BMI] 34.0-34.9, adult; I25.2 Old myocardial infarction; Z89.511 Acquired absence of right leg below knee; Z89.612 Acquired absence of left leg above knee; Z95.1 Presence of aortocoronary bypass graft; Z86.16 Personal history of COVID-19; Z88.0 Allergy status to penicillin; Z79.4 Long term (current) use of insulin; Z79.01 Long term (current) use of anticoagulants; Z79.82 Long term (current) use of aspirin; Z79.899 Other long term (current) drug therapy; Y83.5 Amputation of limb(s) as the cause of abnormal reaction of the patient, or of later complication, without mention of misadventure at the time of the procedure
CPT/HCPCS: 31500; 32555; 36415; 51702; 71045; 80053; 80202; 81001; 82803; 82947; 83605; 83615; 83735; 83880; 84145; 84157; 84484; 85025; 85610; 85730; 86850; 86900; 86901; 87040; 87070; 87086; 87205; 89051; 92950; 93005; 93010; 93971; 94660; 94762; 96374; 96375; 99285-25; A9270; C1751; J1815; J2270; J2405; J3370; J7030; J7060; J7512